=== PATIENT | female | born 1955 | race Caucasian/White ===

== ENCOUNTER 2016-08-29 07:27 | Day surgery (SDC) | payer OTHER ==
[2016-08-28 08:22] VITALS: BMI 33.4
[~2016-08-29 07:27] MED LIST: LACTATED RINGERS 1,000 ML IV SCH; LIDOCAINE 1% 20 ML VIAL (10MG/ML) FOR IV START INTRADERMA PRN
[2016-08-29 07:35] VITALS: RESP 18; TEMP 98.1
[2016-08-29] MEDS ORDERED: LACTATED RINGERS 1,000 ML IV ONE (07:40)
[2016-08-29] MEDS ORDERED: PROPOFOL 10 MG/ML 20 ML VIAL IV ONE (09:10)
--- NOTE | 2016-08-29 09:19 | P.GSHP ---
History of Present Illness H&P Date: 08/29/16 Chief Complaint: Screening colonoscopy This is a 61-year-old female who presents today for screening colonoscopy. Patient had previous colonoscopy prostate 5 years ago. - Constitutional Constitutional: Reports as per HPI Past Medical History Past Medical History: Hyperlipidemia Additional Past Medical History / Comment(s): INJURY TO LT KNEE History of Any Multi-Drug Resistant Organisms: None Reported Past Surgical History: Appendectomy, Orthopedic Surgery Additional Past Surgical History / Comment(s): SURG RT HAND. LT KNEE SCOPE; LT ROTATOR CUFF. COLONOSCOPY. Past Anesthesia/Blood Transfusion Reactions: Postoperative Nausea & Vomiting ( PONV) Past Psychological History: Anxiety, Panic Disorder Additional Psychological History / Comment(s): ONLY IN PAST, PANIC ATTACK X1. Smoking Status: Former smoker Past Alcohol Use History: Daily Additional Past Alcohol Use History / Comment(s): SMOKED [id number], 1 PPD. BEER DAILY X1 STATED Past Drug Use History: None Reported - Past Family History Sister(s) Family Medical History: Cancer, Deep Vein Thrombosis (DVT), Myocardial Infarction ([place]) Brother(s) Family Medical History: Cancer Medications and Allergies Home Medications Medication Instructions Recorded Confirmed Type Ibuprofen [Advil] 200 mg PO Q8HR PRN 09/16/13 08/28/16 History Multivitamins, Thera [Multivitamin] 1 each PO DAILY 09/16/13 08/28/16 History Atorvastatin [Lipitor] 10 mg PO HS 08/28/16 08/28/16 History Allergies Allergy/AdvReac Type Severity Reaction Status Date / Time No Known Allergies Allergy Verified 08/28/16 08:07 Surgical - Exam Vital Signs Temp Pulse Resp BP Pulse Ox 98.1 F 60 18 156/86 96 08/29/16 07:34 08/29/16 07:34 08/29/16 07:34 08/29/16 07:34 08/29/16 07:34 - General well developed, no distress - Eyes PERRL - ENT normal pinna - Neck no masses - Respiratory normal expansion - Cardiovascular Rhythm: regular - Abdomen Abdomen: soft, non tender Assessment and Plan Plan: We'll perform screening colonoscopy.
--- NOTE | 2016-08-29 09:34 | P.OP ---
Date of Procedure: 08/29/16 Preoperative Diagnosis: Screening colonoscopy Postoperative Diagnosis: Diverticulosis Procedure(s) Performed: Colonoscopy Implants: Anesthesia: MAC Surgeon: Geovanny Zapata Pathology: none sent Condition: stable Disposition: PACU Indications for Procedure: Operative Findings: Description of Procedure: The patient's placed on the endoscopy table in the lateral position. She received IV sedation. The digital rectal exam performed which revealed no abnormalities. Flexible colonoscope was then placed patient anus passed throughout the entire colon. The ileocecal valve was visualized. Cecum, ascending and transverse colon appeared normal. In the descending; was mild diverticular changes. The scope was brought back into k the rectum and this appeared normal. Scope was withdrawn from patient.
[2016-08-29 09:54] VITALS: BP 148/80; PULSE 61
== END 2016-08-29 10:15 | disposition home or self-care (01) ==
LOC: ORWHC2ENDO 07:27
PROVIDERS: ATTEND Surgery
DX: Z12.11 Encounter for screening for malignant neoplasm of colon (principal); K57.90 Diverticulosis of intestine, part unspecified, without perforation or abscess without bleeding; E78.5 Hyperlipidemia, unspecified; Z87.891 Personal history of nicotine dependence; Z79.899 Other long term (current) drug therapy
CPT/HCPCS: J2704; G0121

== ENCOUNTER → 2016-11-28 | Outpatient (CLI) | payer OTHER ==
--- NOTE | 2016-11-28 12:11 | XR ---
EXAMINATION TYPE: XR wrist complete RT DATE OF EXAM: 11/28/2016 COMPARISON: NONE HISTORY: Pain TECHNIQUE: Four views submitted. FINDINGS: There is an intra-articular fracture of the distal radius. Mild displacement. Arthropathy of the firs t carpal metacarpal joint noted. Chronic deformity of the ulnar styloid. IMPRESSION: 1. Mildly displaced intra-articular fracture distal radius.
== END | disposition home or self-care (01) ==
LOC: RADXRMAIN 11:49
PROVIDERS: ATTEND Family Medicine
DX: S52.571A Other intraarticular fracture of lower end of right radius, initial encounter for closed fracture (principal)

== ENCOUNTER → 2016-12-16 | Outpatient (CLI) | payer OTHER ==
--- NOTE | 2016-12-16 15:23 | XR ---
Right wrist HISTORY: Trauma and pain 4 views of the right wrist submitted and correlated to prior exam 11/28/2016 The fracture at the radial styloid is again noted, some sclerosis is present along the fracture, rogelio osteal reaction is suspected. Old nonfused ulnar styloid fracture is present. Some widening of the sc apholunate distance suspected. IMPRESSION: Healing radial styloid fracture. Old trauma, widening of the scapholunate distance could be indicative of scapholunate ligament tear.
== END ==
LOC: RADXRMAIN 11:36
PROVIDERS: ATTEND Family Medicine
DX: S52.511D Displaced fracture of right radial styloid process, subsequent encounter for closed fracture with routine healing (principal)

== ENCOUNTER → 2017-01-15 | Outpatient (CLI) | payer OTHER ==
--- NOTE | 2017-01-15 15:22 | XR ---
Right wrist HISTORY: Healing wrist fracture 4 views of the right wrist correlated to previous exam 12/16/2016 Radial styloid fracture is noted as on previous exam, suspect some sclerosis is present compatible wi th fracture healing, no significant periosteal reaction. Lucency extending into the radiocarpal joint is somewhat less conspicuous. Old ulnar styloid fracture is well-corticated and felt to be chronic. IMPRESSION: Findings compatible with healing fracture radial styloid
== END | disposition home or self-care (01) ==
LOC: RADXRMAIN 11:33
PROVIDERS: ATTEND Family Medicine
DX: S52.511D Displaced fracture of right radial styloid process, subsequent encounter for closed fracture with routine healing (principal)

== ENCOUNTER → 2017-03-26 | Outpatient (CLI) | payer OTHER ==
--- NOTE | 2017-03-28 10:45 | MM ---
Reason for exam: screening (asymptomatic). Last mammogram was performed 1 year and 2 months ago. History: Patient is postmenopausal. Family history of premenopausal breast cancer in sister and breast cancer in maternal grandmother. Physical Findings: A clinical breast exam by your physician is recommended on an annual basis and results should be correlated with mammographic findings. MG Screening Mammo w CAD Bilateral CC and MLO view(s) were taken. Prior study comparison: January 19, 2016, bilateral MG screening mammo w CAD. June 21, 2014, bilateral MG screening mammo w CAD. There are scattered fibroglandular densities. No significant changes when compared with prior studies. ASSESSMENT: Benign, BI-RAD 2 RECOMMENDATION: Routine screening mammogram of both breasts in 1 year.
== END | disposition home or self-care (01) ==
LOC: RADMAMWWP 12:18
PROVIDERS: ATTEND Obstetrics & Gynecology
DX: Z12.31 Encounter for screening mammogram for malignant neoplasm of breast (principal)

== ENCOUNTER 2017-05-30 10:03 | Emergency (ER) | payer OTHER ==
--- NOTE | 2017-05-30 10:34 | ED ---
General Adult HPI - General Chief complaint: Fall Stated complaint: RT KNEE AND LEFT WRIST INJURY Time Seen by Provider: 05/30/17 10:26 Source: patient, family, RN notes reviewed Mode of arrival: wheelchair Limitations: no limitations - History of Present Illness Initial comments: Patient is a pleasant 62-year-old female presenting to the emergency department following a fall. Incident occurred just prior to arrival at work. Patient tripped on a pallet and fell forward. No head injury or loss of consciousness. No neck or back pain. Patient did land somewhat on her chest however no chest pain or dyspnea. Patient does complain of moderate left wrist pain as well as moderate right knee pain. Patient does have some swelling of her right knee. Patient is ambulatory with difficulty. - Related Data Home Medications Medication Instructions Recorded Confirmed Atorvastatin [Lipitor] 10 mg PO HS 08/28/16 05/30/17 Calcium Carbonate/Vitamin D3 1 tab PO HS 05/30/17 05/30/17 [Calcium 500-Vit D3 200 Tablet] Fish Oil/Dha/Epa [Fish Oil 1,200 1 cap PO HS 05/30/17 05/30/17 mg Fish Oil] Garlic 1 tab PO HS 05/30/17 05/30/17 Wheat Dextrin [Benefiber] 1 pack PO HS 05/30/17 05/30/17 Previous Rx's Medication Instructions Recorded Ibuprofen [Motrin] 600 mg PO Q6HR PRN #15 tab 05/30/17 Allergies Allergy/AdvReac Type Severity Reaction Status Date / Time No Known Allergies Allergy Verified 05/30/17 11:14 Review of Systems ROS Statement: Those systems with pertinent positive or pertinent negative responses have been documented in the HPI. ROS Other: All systems not noted in ROS Statement are negative. Constitutional: Denies: fever Eyes: Denies: eye pain ENT: Denies: ear pain Respiratory: Denies: cough, dyspnea Cardiovascular: Denies: chest pain Endocrine: Denies: fatigue Gastrointestinal: Denies: abdominal pain Genitourinary: Denies: dysuria Musculoskeletal: Denies: back pain Skin: Denies: rash Neurological: Denies: headache, weakness, confusion Past Medical History Past Medical History: Hyperlipidemia Additional Past Medical History / Comment(s): INJURY TO LT KNEE History of Any Multi-Drug Resistant Organisms: None Reported Past Surgical History: Appendectomy, Orthopedic Surgery Additional Past Surgical History / Comment(s): SURG RT HAND. LT KNEE SCOPE; LT ROTATOR CUFF. COLONOSCOPY. Past Anesthesia/Blood Transfusion Reactions: Postoperative Nausea & Vomiting ( PONV) Past Psychological History: Anxiety, Panic Disorder Smoking Status: Former smoker Past Alcohol Use History: Daily Past Drug Use History: None Reported - Past Family History Sister(s) Family Medical History: Cancer, Deep Vein Thrombosis (DVT), Myocardial Infarction ([place]) Brother(s) Family Medical History: Cancer General Exam Limitations: no limitations General appearance: alert, in no apparent distress Head exam: Present: atraumatic, normocephalic Eye exam: Present: normal appearance Neck exam: Present: normal inspection. Absent: tenderness Respiratory exam: Present: normal lung sounds bilaterally. Absent: chest wall tenderness Cardiovascular Exam: Present: regular rate, normal rhythm Expanded Peripheral pulses: 2+: Dorsalis Pedis (R) GI/Abdominal exam: Present: soft. Absent: distended, tenderness Left Hand Wrist exam: Present: tenderness (Tenderness distal radius just proximal to the wrist), other (Distally the extremity is neurovascular intact.). Absent: normal inspection, swelling, abrasion Right Knee exam: Present: tenderness (Tenderness lower knee/upper tibial region with swelling. Distally the extremity is neurovascular intact. Patient does have a small abrasion however did have pants on.), swelling, abrasion Neurological exam: Present: alert. Absent: motor sensory deficit Psychiatric exam: Present: normal affect, normal mood Skin exam: Present: abrasion (Small abrasion right knee) Course Vital Signs 05/30/17 10:20 Temperature 97.3 F L Pulse Rate 55 L Respiratory 16 Rate Blood Pressure 140/81 O2 Sat by Pulse 98 Oximetry - Reevaluation(s) Reevaluation #1: 05/30/17 10:33 Patient felt to be low risk for tetanus however is offered. Patient refuses. Injury occurred underneath of her pants without break in pants. Procedures - Orthopedic Splinting/Casting Injury #1 Side: left Upper Extremity Injury Location: short arm, wrist Upper Extremity Immobilizer: thumb spica Additional Comments: Examined postplacement with neurovascular intact and good alignment. Medical Decision Making - Medical Decision Making Splint placed. Patient updated on results and need for follow-up. Patient is now receptive to Motrin. - Radiology Data Radiology results: image reviewed (X-ray of the right knee shows no acute process. X-ray left wrist shows a distal radius avulsion fracture.) Disposition Clinical Impression: Distal radius fracture, left Disposition: HOME SELF-CARE Condition: Stable Instructions: Arm Fracture in Adults (ED), Wrist Fracture in Adults (ED) Additional Instructions: Please follow-up with [facility] in the next day or 2 for recheck. He will need to see orthopedics and likely have a cast placed. Ice to affected area. Return for increased pain, swelling, worsening symptoms or other concerns. Prescriptions: Ibuprofen [Motrin] 600 mg PO Q6HR PRN #15 tab PRN Reason: Pain Referrals: Vaibhav Singh DO [Primary Care Provider] - 1-2 days Time of Disposition: 11:37
--- NOTE | 2017-05-30 11:00 | XR ---
EXAMINATION TYPE: XR knee complete RT DATE OF EXAM: 05/30/2017 CLINICAL HISTORY: Right knee pain. TECHNIQUE: Three views of the right knee are obtained. COMPARISON: None. FINDINGS: There is no acute fracture/dislocation evident in right knee. The mild joint space loss p atellofemoral and medial tibiofemoral compartments is present. There is spurring anterior superior p atellar distal quadriceps tendon attachment. A fabella is incidentally noted. The overlying soft tiss ue appears unremarkable. IMPRESSION: There is no acute fracture or dislocation in the right knee.
--- NOTE | 2017-05-30 11:01 | XR ---
EXAMINATION TYPE: XR wrist complete LT DATE OF EXAM: 05/30/2017 CLINICAL HISTORY: Pain. TECHNIQUE: Frontal, lateral and oblique images of the left wrist are obtained. COMPARISON: None FINDINGS: There is age-indeterminate avulsion type fracture from the ulnar aspect of ulnar styloid. The joint spaces in the left wrist appear within normal limits. The overlying soft tissue appears u nremarkable. IMPRESSION: There is age indeterminate avulsion type fracture from ulnar styloid. Correlate clinical ly with history and point tenderness.
[2017-05-30] MEDS ORDERED: IBUPROFEN 600 MG STARTER PACK 4 TAB BTL PO STA (11:34)
[2017-05-30 11:47] VITALS: BP 147/73; PULSE 60; RESP 13; TEMP 98.1
== END 2017-05-30 12:06 | disposition home or self-care (01) ==
LOC: EC 10:03
DX: S52.502A Unspecified fracture of the lower end of left radius, initial encounter for closed fracture (principal); S80.211A Abrasion, right knee, initial encounter; E78.5 Hyperlipidemia, unspecified; Z87.891 Personal history of nicotine dependence; Z53.29 Procedure and treatment not carried out because of patient's decision for other reasons; Z79.899 Other long term (current) drug therapy; W18.09XA Striking against other object with subsequent fall, initial encounter; Y92.69 Other specified industrial and construction area as the place of occurrence of the external cause; Y99.0 Civilian activity done for income or pay
CPT/HCPCS: 29125; 99283

== ENCOUNTER 2019-10-16 12:04 | Emergency (ER) | payer MEDICARE, OTHER ==
[2019-10-16] MEDS ORDERED: ACETAMINOPHEN TAB 500 MG TAB PO STA (12:34)
--- NOTE | 2019-10-16 13:24 | XR ---
EXAMINATION TYPE: XR ankle complete RT , 3 VIEWS DATE OF EXAM ORDERED: 10/16/2019 HISTORY: fall, heel pain. COMPARISON: None. FINDINGS: No fracture, dislocation or ankle joint effusion is seen. There are small, plantar and Ach illes calcaneal spurs. There is some amorphous calcification in the distal Achilles tendon. IMPRESSION: NO ACUTE OSSEOUS LESION.
--- NOTE | 2019-10-16 13:56 | ED ---
Lower Extremity Injury HPI - General Source: patient Mode of arrival: wheelchair Limitations: no limitations <Margy Clarke - Last Filed: 10/16/19 14:05> <Tavo Crawley - Last Filed: 10/16/19 14:22> - General Chief Complaint: Extremity Injury, Lower Stated Complaint: foot & leg injury Time Seen by Provider: 10/16/19 12:12 - History of Present Illness Initial Comments: Patient is a 64-year-old female presenting to the emergency Department with complaints of pain in her right heel. Patient states she saw her laying on the ground and thought he might a fall and hurt himself so she took off running and missed the second step off her deck. Patient states she landed mostly on her right heel. She denies pain anywhere else. She denies any previous surgeries or injuries to the right foot or ankle. She states she is not able to bear weight on this ankle and also has immense pain with dorsiflexio n. She has no further complaints at this time. (Margy Clarke) - Related Data Home Medications Medication Instructions Recorded Confirmed Atorvastatin [Lipitor] 10 mg PO HS 08/28/16 05/30/17 Calcium Carbonate/Vitamin D3 1 tab PO HS 05/30/17 05/30/17 [Calcium 500-Vit D3 200 Tablet] Fish Oil/Dha/Epa [Fish Oil 1,200 1 cap PO HS 05/30/17 05/30/17 mg Fish Oil] Garlic 1 tab PO HS 05/30/17 05/30/17 Wheat Dextrin [Benefiber] 1 pack PO HS 05/30/17 05/30/17 Previous Rx's Medication Instructions Recorded Ibuprofen [Motrin] 600 mg PO Q6HR PRN #15 tab 05/30/17 Allergies Allergy/AdvReac Type Severity Reaction Status Date / Time No Known Allergies Allergy Verified 10/16/19 12:11 Review of Systems ROS Other: All systems not noted in ROS Statement are negative. <Margy Clarke - Last Filed: 10/16/19 14:05> ROS Other: All systems not noted in ROS Statement are negative. <Tavo Crawley - Last Filed: 10/16/19 14:22> ROS Statement: Those systems with pertinent positive or pertinent negative responses have been documented in the HPI. Past Medical History Past Medical History: Hyperlipidemia Additional Past Medical History / Comment(s): INJURY TO LT KNEE History of Any Multi-Drug Resistant Organisms: None Reported Past Surgical History: Appendectomy, Orthopedic Surgery Additional Past Surgical History / Comment(s): SURG RT HAND. LT KNEE SCOPE; LT ROTATOR CUFF. COLONOSCOPY. Past Anesthesia/Blood Transfusion Reactions: Postoperative Nausea & Vomiting (PONV) Past Psychological History: Anxiety, Panic Disorder Smoking Status: Never smoker Past Alcohol Use History: Daily Past Drug Use History: None Reported - Past Family History Sister(s) Family Medical History: Cancer, Deep Vein Thrombosis (DVT), Myocardial Infarction ([place]) Brother(s) Family Medical History: Cancer <Margy Clarke - Last Filed: 10/16/19 14:05> General Exam Limitations: no limitations <Margy Clarke - Last Filed: 10/16/19 14:05> - General Exam Comments Initial Comments: GENERAL: Patient is well-developed and well-nourished. Patient is nontoxic and in no acute distress. HEAD: Atraumatic, normocephalic. EYES: Pupils equal round and reactive to light, extraocular movements intact, sclera anicteric, conjunctiva are normal. Eyelids were unremarkable. ENT: TMs normal, nares patent, oropharynx clear without exudates. Moist mucous membranes. NECK: Normal range of motion, supple without lymphadenopathy or JVD. LUNGS: Unlabored respirations. Breath sounds clear to auscultation bilaterally and equal. No wheezes rales or rhonchi. HEART: Regular rate and rhythm without murmurs, rubs or gallops. ABDOMEN: Soft, nontender, normoactive bowel sounds. No guarding, no rebound. No masses appreciated. : Deferred MUSCULOSKELETAL: Normal extremities wwith adequate strength and normal range of motion, no pitting or edema. No clubbing or cyanosis. NEUROLOGICAL: Patient is alert and oriented x 3. Motor and sensory are also intact. Cranial nerves II through XII grossly intact. Normal speech, normal gait. Symmetrical smile. PSYCH: Normal mood, normal affect. SKIN: Warm, Dry, normal turgor, no rashes or lesions noted. (Margy Clarke) Course <Tavo Crawley - Last Filed: 10/16/19 14:22> Vital Signs 10/16/19 12:09 Temperature 97.9 F Pulse Rate 114 H Respiratory 20 Rate Blood Pressure 188/77 O2 Sat by Pulse 99 Oximetry - Reevaluation(s) Reevaluation #1: 10/16/19 14:21 PA supervision: I proceeded [id number] evaluation the patient. He did injure her right lower extremity injury does appear to be consistent with an Achilles tendon strain. I did review the imaging no evidence of a bony abnormality. I did discuss the findings with the patient and family patient will follow up with Dr. Moore. She does have crutches at home and will be non weight bearing. (Tavo Crawley) Disposition Is patient prescribed a controlled substance at d/c from ED?: No <Margy Clarke - Last Filed: 10/16/19 14:05> <Tavo Crawley - Last Filed: 10/16/19 14:22> Clinical Impression: Strain of right Achilles tendon Disposition: HOME SELF-CARE Condition: Stable Instructions (If sedation given, give patient instructions): Achilles Tendinitis (ED) Additional Instructions: Please return to the Emergency Department if symptoms worsen or any other concerns. Follow-up with orthopedics as discussed. Keep brace in place until follow-up. No weightbearing. May alternate between Tylenol and Motrin for discomfort. Referrals: Vaibhav Singh DO [Primary Care Provider] - 1-2 days Geronimo Moore DO [Doctor of Osteopathic Medicine] - 1-2 days
[2019-10-16] MEDS ORDERED: ACET/COD 300 MG/30 MG STARTER PACK 6 TAB BTL PO STA (14:06)
[2019-10-16 14:21] VITALS: BP 154/67; PULSE 58; RESP 18; TEMP 97.6
== END 2019-10-16 14:23 | disposition home or self-care (01) ==
LOC: EC 12:04
DX: S86.011A Strain of right Achilles tendon, initial encounter (principal); E78.5 Hyperlipidemia, unspecified; Z79.899 Other long term (current) drug therapy; W19.XXXA Unspecified fall, initial encounter; Y93.02 Activity, running
CPT/HCPCS: 99283

== ENCOUNTER → 2019-10-21 | Outpatient (CLI) | payer MEDICARE ==
--- NOTE | 2019-10-21 14:36 | MR ---
EXAMINATION TYPE: MR ankle RT wo con DATE OF EXAM: 10/21/2019 COMPARISON: Right ankle x-ray 5 days ago HISTORY: Rt ankle pain, limited movement S/P injury 1 week ago Standard multiplanar, multisequence MRI departmental protocol Multiplanar, multisequence images of the right ankle were acquired. FINDINGS: Distal Achilles tendon show some irregularity and diminished signal with adjacent edema jose alberto roximately 6 to 7 cm cranial to the calcaneal insertion over a roughly 2 cm segment. No full-thicknes s retracted tear is seen. Plantar fascia intact. There are moderate size superior and inferior calcan eal spurs. Peroneal tendons are intact and felt within normal limits. There is moderate subcutaneous edema over the posterior aspect of the medial malleolus and flexor tendons posterior medially are intact. Extensor tendons anteriorly are intact. Anterior tibiofibular and anterior talofibular ligaments are intact. Medial deltoid ligament is intac t. Normal sinus tarsi fat is seen. Ankle mortise symmetry is maintained. Hindfoot and midfoot articulati ons are preserved. No suspicious osseous edema. IMPRESSION: Partial tearing of the mid substance portion of the Achilles tendon without full-thicknes s retracted tear. No ligamentous tear is seen.
== END | disposition home or self-care (01) ==
LOC: RADMRIMAIN 13:21
PROVIDERS: ATTEND Orthopaedic Surgery
DX: S86.011A Strain of right Achilles tendon, initial encounter (principal)

== ENCOUNTER → 2020-05-19 | Outpatient (CLI) | payer MEDICARE ==
--- NOTE | 2020-05-19 14:30 | BD ---
EXAMINATION TYPE: Axial Bone Density DATE OF EXAM: 05/19/2020 COMPARISON: NONE CLINICAL HISTORY: Height: 61 Weight: 184.7 FRAX RISK QUESTIONS: Alcohol (3 or more units per day): no Family History (Parent hip fracture): no Glucocorticoids (More than 3mos): no (Ex: prednisone, prednisolone, methylprednisolone, dexamethasone, and hydrocortisone). History of Fracture in Adulthood: yes Secondary Osteoporosis: 1. Type 1 Diabetes: no 2. Hyperthyroidism: no 3. Menopause before 45: no 4. Malnutrition: no 5. Chronic liver disease: no Rheumatoid Arthritis: no Current Tobacco Use: no RISK FACTORS HISTORY OF: Hip Fracture (Right/Left): right -25 years ago/ left 3 years ago Family History of Osteoporosis: no Active: no Diet low in dairy products/other sources of calcium: yes Postmenopausal woman: age 49 Lost more than 2 inches in height since high school: no MEDICATIONS: cholesterol meds Additional History: EXAM MEASUREMENTS: Bone mineral densitometry was performed using the [employer] System. Bone mineral density as measured about the Lumbar spine is: ----- L1-L4(G/cm2): 1.238 T Score Values are as follows: ----- L2: 0.7 ----- L3: 0.6 ----- L4: 0.6 ----- L1-L4: 0.5 Bone mineral density has: decreased -0.4 % since study of: 06.30.2012 Bone mineral density about the R hip (g/cm2): 0.973 Bone mineral density about the L hip (g/cm2): 0.955 T Score values are as follows: -----R Neck: -0.5 -----L Neck: -0.6 -----R Total: 0.5 -----L Total: 0.0 Bone mineral density has: increased 0.2 % since study of: 06.30.2012 IMPRESSION: Normal (Values between +1 and -1 indicate normal bone mass). Consider repeating this study in 5 year s or sooner if there is some new clinical indication. NOTE: T-SCORE=SD OF THE YOUNG ADULT MEAN.
--- NOTE | 2020-05-23 09:18 | MM ---
Reason for exam: screening (asymptomatic). Last mammogram was performed 1 year and 11 months ago. History: Patient is postmenopausal. Family history of premenopausal breast cancer in sister and breast cancer in maternal grandmother. Physical Findings: A clinical breast exam by your physician is recommended on an annual basis and results should be correlated with mammographic findings. MG Screening Mammo w CAD Bilateral CC and MLO view(s) were taken. Prior study comparison: June 22, 2018, bilateral MG 3d screening mammo w/cad. March 26, 2017, bilateral MG screening mammo w CAD. The breast tissue is heterogeneously dense. This may lower the sensitivity of mammography. No significant changes when compared with prior studies. ASSESSMENT: Benign, BI-RAD 2 RECOMMENDATION: Routine screening mammogram of both breasts in 1 year.
== END | disposition home or self-care (01) ==
LOC: RADMAMWWP 13:10
PROVIDERS: ATTEND Obstetrics & Gynecology
DX: Z12.31 Encounter for screening mammogram for malignant neoplasm of breast (principal); N95.1 Menopausal and female climacteric states
CPT/HCPCS: 77067; 77080

== ENCOUNTER 2021-05-27 11:27 | Emergency (ER) | payer MEDICARE ==
[2021-05-27 11:48] VITALS: RESP 16; TEMP 98.4
[2021-05-27 12:32] LABS: Basophils % (A) 1 %; Eosinophils # (A) 0.1 k/uL (0-0.7); Eosinophils % (A) 1 %; HCT 43.2 % (34.0-46.0); HGB 14.3 gm/dL (11.4-16.0); Lymphocytes # (A) 1.6 k/uL (1.0-4.8); Lymphocytes % (A) 26 %; MCH 31.7 pg (25.0-35.0); MCHC 33.1 g/dL (31.0-37.0); MCV 95.8 fL (80.0-100.0); Mean Platelet Volume 6.9; Monocytes # (A) 0.4 k/uL (0-1.0); Monocytes % (A) 6 %; Neutrophils # (A) 4.1 k/uL (1.3-7.7); Neutrophils % (A) 64 %; Platelet Count 266 k/uL (150-450); RBC 4.51 m/uL (3.80-5.40); RDW 13.3 % (11.5-15.5); WBC 6.3 k/uL (3.8-10.6)
[2021-05-27 12:47] LABS: Albumin 4.3 g/dL (3.5-5.0); Calcium 9.4 mg/dL (8.4-10.2); Total Bilirubin 0.9 mg/dL (0.2-1.3); Total Protein 7.6 g/dL (6.3-8.2)
[2021-05-27 12:51] LABS: Appearance,Urine Clear (Clear); Bilirubin,Urine Negative (Negative); Blood,Urine Trace (Negative); Color,Urine Yellow; Glucose,Urine (UA) Negative (Negative); Ketones,Urine Negative (Negative); Leukocyte Esterase,Urine Trace (Negative); Nitrite,Urine Negative (Negative); PH, Urine 6.5 (5.0-8.0); Protein,Urine Negative (Negative); RBC,Urine 2 /hpf (0-5); Specific Gravity,Urine 1.013 (1.001-1.035); Squamous Epithelial Cell,Urine <1 /hpf (0-4); Urobilinogen,Urine <2.0 mg/dL (<2.0); WBC,Urine 2 /hpf (0-5)
--- NOTE | 2021-05-27 12:52 | ED ---
Abdominal Pain HPI - General Chief Complaint: Abdominal Pain Stated Complaint: Abdominal Pain Time Seen by Provider: 05/27/21 12:02 Source: patient Mode of arrival: ambulatory Limitations: no limitations - History of Present Illness Initial Comments: Patient is a 66-year-old female who presents to the emergency department with a chief complaint of right flank pain. The flank pain started 5 days ago suddenly and is intermittent with radiation to the right pelvic region. There is no radiation to the back. Patient reports this is never happened before. She denies history of kidney infection or kidney stones. Patient denies fever, chills, abdominal pain, nausea, vomiting burning with urination, blood in the urine, and increased urinary frequency/urgency. She has no other complaints at this time including chest pain and shortness of breath. - Related Data Home Medications Medication Instructions Recorded Confirmed Atorvastatin [Lipitor] 10 mg PO HS 08/28/16 05/30/17 Calcium Carbonate/Vitamin D3 1 tab PO HS 05/30/17 05/30/17 [Calcium 500-Vit D3 200 Tablet] Fish Oil/Dha/Epa [Fish Oil 1,200 1 cap PO HS 05/30/17 05/30/17 mg Fish Oil] Garlic 1 tab PO HS 05/30/17 05/30/17 Wheat Dextrin [Benefiber] 1 pack PO HS 05/30/17 05/30/17 Previous Rx's Medication Instructions Recorded Ibuprofen [Motrin] 600 mg PO Q6HR PRN #15 tab 05/30/17 Allergies Allergy/AdvReac Type Severity Reaction Status Date / Time No Known Allergies Allergy Verified 05/27/21 11:48 Review of Systems ROS Statement: Those systems with pertinent positive or pertinent negative responses have been documented in the HPI. ROS Other: All systems not noted in ROS Statement are negative. Past Medical History Past Medical History: Hyperlipidemia, Hypertension Additional Past Medical History / Comment(s): INJURY TO LT KNEE History of Any Multi-Drug Resistant Organisms: None Reported Past Surgical History: Appendectomy, Orthopedic Surgery Additional Past Surgical History / Comment(s): SURG RT HAND. LT KNEE SCOPE; LT ROTATOR CUFF. COLONOSCOPY. Past Anesthesia/Blood Transfusion Reactions: Postoperative Nausea & Vomiting (PONV) Past Psychological History: Anxiety, Panic Disorder Smoking Status: Former smoker Past Alcohol Use History: Daily Past Drug Use History: None Reported - Past Family History Sister(s) Family Medical History: Cancer, Deep Vein Thrombosis (DVT), Myocardial Infarction ([place]) Brother(s) Family Medical History: Cancer General Exam Limitations: no limitations General appearance: alert, in no apparent distress Head exam: Present: atraumatic, normocephalic, normal inspection Respiratory exam: Present: normal lung sounds bilaterally. Absent: respiratory distress, wheezes, rales, rhonchi, stridor Cardiovascular Exam: Present: regular rate, normal rhythm, normal heart sounds. Absent: systolic murmur, diastolic murmur, rubs, gallop, clicks GI/Abdominal exam: Present: soft. Absent: distended, guarding, rebound, rigid Back exam: Present: normal inspection, full ROM, CVA tenderness (R). Absent: tenderness, CVA tenderness (L), paraspinal tenderness, vertebral tenderness Neurological exam: Present: alert, oriented X3, CN II-XII intact Psychiatric exam: Present: normal affect, normal mood Skin exam: Present: warm, dry, intact, normal color. Absent: rash Course Vital Signs 05/27/21 11:43 Temperature 98.4 F Pulse Rate 79 Respiratory 16 Rate Blood Pressure 145/92 O2 Sat by Pulse 98 Oximetry Medical Decision Making - Medical Decision Making This a 66-year-old female who presents with right flank pain and pelvic pain. Thorough history and examination were performed. Patient is afebrile. Laboratory studies reveal chronic renal insufficiency. No leukocytosis. Urinalysis reveals trace blood and trace leukocyte esterase. CT of the abdomen and pelvis without contrast reveals prominence of the right renal collecting system, right ureter which could be due to recently passed calculus. Patient given morphine for pain. On reevaluation patient is resting in bed with moderate improvement in pain. Patient will be discharged with instruction to take Tylenol for pain. Return parameters discussed. Patient verbalized understanding and are agreeable to plan. Dr. Hunter is my attending. - Lab Data Result diagrams: 05/27/21 12:20 05/27/21 12:20 Lab Results 05/27/21 05/27/21 05/27/21 Range/Units 12:20 12:20 12:20 WBC 6.3 (3.8-10.6) k/uL RBC 4.51 (3.80-5.40) m/uL Hgb 14.3 (11.4-16.0) gm/dL Hct 43.2 (34.0-46.0) % MCV 95.8 (80.0-100.0) fL MCH 31.7 (25.0-35.0) pg MCHC 33.1 (31.0-37.0) g/dL RDW 13.3 (11.5-15.5) % Plt Count 266 (150-450) k/uL MPV 6.9 Neutrophils % 64 % Lymphocytes % 26 % Monocytes % 6 % Eosinophils % 1 % Basophils % 1 % Neutrophils # 4.1 (1.3-7.7) k/uL Lymphocytes # 1.6 (1.0-4.8) k/uL Monocytes # 0.4 (0-1.0) k/uL Eosinophils # 0.1 (0-0.7) k/uL Basophils # 0.0 (0-0.2) k/uL Sodium 141 (137-145) mmol/L Potassium 4.0 (3.5-5.1) mmol/L Chloride 106 (98-107) mmol/L Carbon Dioxide 27 (22-30) mmol/L Anion Gap 8 mmol/L BUN 35 H (7-17) mg/dL Creatinine 1.31 H (0.52-1.04) mg/dL Est GFR (CKD-EPI)AfAm 49 (>60 ml/min/1.73 sqM) Est GFR (CKD-EPI)NonAf 42 (>60 ml/min/1.73 sqM) Glucose 95 (74-99) mg/dL Calcium 9.4 (8.4-10.2) mg/dL Total Bilirubin 0.9 (0.2-1.3) mg/dL AST 43 H (14-36) U/L ALT 56 H (4-34) U/L Alkaline Phosphatase 114 (38-126) U/L Total Protein 7.6 (6.3-8.2) g/dL Albumin 4.3 (3.5-5.0) g/dL Urine Color Yellow Urine Appearance Clear (Clear) Urine pH 6.5 (5.0-8.0) Ur Specific [place] 1.013 (1.001-1.035) Urine Protein Negative (Negative) Urine Glucose (UA) Negative (Negative) Urine Ketones Negative (Negative) Urine Blood Trace H (Negative) Urine Nitrite Negative (Negative) Urine Bilirubin Negative (Negative) Urine Urobilinogen <2.0 (<2.0) mg/dL Ur Leukocyte Esterase Trace H (Negative) Urine RBC 2 (0-5) /hpf Urine WBC 2 (0-5) /hpf Ur Squamous Epith Cells <1 (0-4) /hpf - Radiology Data Radiology results: report reviewed Disposition Clinical Impression: Flank pain, acute Disposition: HOME SELF-CARE Condition: Good Additional Instructions: Take Tylenol as needed for pain. Follow-up with primary care provider in one to 2 days. Return to the emergency department if you experience new, concerning, or worsening symptoms. Is patient prescribed a controlled substance at d/c from ED?: No Referrals: Vaibhav Singh DO [Primary Care Provider] - 1-2 days Time of Disposition: 14:57
--- NOTE | 2021-05-27 14:05 | CT ---
EXAMINATION TYPE: CT abdomen pelvis wo con DATE OF EXAM: 05/27/2021 COMPARISON: None HISTORY: Right flank pain. CT DLP: 865.6 mGycm Automated exposure control for dose reduction was used. TECHNIQUE: Helical acquisition of images from the lung bases through the pelvis. FINDINGS: Lack of intravenous contrast could compromise sensitivity. There is a hiatal hernia. LUNG BASES: No significant abnormality is appreciated. AORTA: No significant abnormality is appreciataed. LIVER/GB: No significant abnormality is appreciated. PANCREAS: No significant abnormality is seen. SPLEEN: No significant abnormality is seen. ADRENALS: No significant abnormality is seen. KIDNEYS: There is a punctate calcification at the lower pole the right kidney, right renal pelvis is somewhat full in appearance. Mild prominence of the right ureter. REPRODUCTIVE ORGANS: No significant abnormality is seen. URINARY BLADDER: No significant abnormality is seen. BOWEL: No significant abnormality is seen. No evident appendicitis. FREE AIR: No Free Air is visible. ASCITES: None visible. PELVIC ADENOPATHY: None visualized. RETROPERITONEAL ADENOPATHY: No Retroperitoneal Adenopathy visible. OSSEOUS STRUCTURES: Degenerative disc changes, spinal curvature noted in the visualized spine. Facet arthropathy present at the lower lumbar spine. IMPRESSION: PROMINENCE OF THE RIGHT RENAL COLLECTING SYSTEM, RIGHT URETER COULD BE DUE TO RECENTLY PASSED CALCULU S, 8 NONOBSTRUCTIVE CALCULUS IS NOT IDENTIFIED WITH CERTAINTY THERE IS NONOBSTRUCTIVE RIGHT NEPHROLIT HIASIS.
[2021-05-27] MEDS ORDERED: MORPHINE SULFATE 4 MG/ML SYRINGE IVP STA (14:26)
[2021-05-27] MEDS ORDERED: KETOROLAC 15 MG/ML 1 ML VIAL IVP STA (14:36)
[2021-05-27 15:11] VITALS: BP 138/77; PULSE 65
== END 2021-05-27 15:11 | disposition home or self-care (01) ==
LOC: EC 11:27
DX: R10.9 Unspecified abdominal pain (principal); E78.5 Hyperlipidemia, unspecified; I10 Essential (primary) hypertension; F41.9 Anxiety disorder, unspecified; Z90.49 Acquired absence of other specified parts of digestive tract; Z87.891 Personal history of nicotine dependence
CPT/HCPCS: 99284; 96374; 36415; 80053; 85025; 81001; 74176; J1885

== ENCOUNTER → 2021-06-08 | Outpatient (CLI) | payer MEDICARE ==
--- NOTE | 2021-06-11 09:21 | MM ---
Reason for exam: screening (asymptomatic). Last mammogram was performed 1 year and 1 month ago. History: Patient is postmenopausal. Family history of premenopausal breast cancer in sister and breast cancer in maternal grandmother. Physical Findings: A clinical breast exam by your physician is recommended on an annual basis and results should be correlated with mammographic findings. MG Screening Mammo w CAD Bilateral CC and MLO view(s) were taken. Prior study comparison: May 19, 2020, bilateral MG screening mammo w CAD. June 22, 2018, bilateral MG 3d screening mammo w/cad. The breast tissue is heterogeneously dense. This may lower the sensitivity of mammography. Partially obscured nodular density central right breast zone B/C. This finding is changed when compared with previous exams. ASSESSMENT: Incomplete: need additional imaging evaluation, BI-RAD 0 RECOMMENDATION: Special view mammogram of the right breast. If lesion persists on supplemental views, image directed ultrasound is recommended. [facility] will attempt to contact patient to return for supplemental views and ultrasound if indicated.
== END | disposition home or self-care (01) ==
LOC: RADMAMWWP 07:32
PROVIDERS: ATTEND Obstetrics & Gynecology
DX: Z12.31 Encounter for screening mammogram for malignant neoplasm of breast (principal); Z78.0 Asymptomatic menopausal state; Z80.3 Family history of malignant neoplasm of breast
CPT/HCPCS: 77067

== ENCOUNTER → 2021-06-14 | Outpatient (CLI) | payer MEDICARE ==
--- NOTE | 2021-06-14 11:14 | MM ---
Reason for exam: additional evaluation requested from abnormal screening. Last mammogram was performed less than 1 month ago. History: Patient is postmenopausal. Family history of premenopausal breast cancer in sister and breast cancer in maternal grandmother. Physical Findings: A clinical breast exam by your physician is recommended on an annual basis and results should be correlated with mammographic findings. MG Work Up Mamm w CAD RT Spot compression CC, spot compression MLO, and LM view(s) were taken of the right breast. Prior study comparison: June 08, 2021, bilateral MG screening mammo w CAD. May 19, 2020, bilateral MG screening mammo w CAD. The breast tissue is heterogeneously dense. This may lower the sensitivity of mammography. There is no discrete abnormality including area of concern. No significant new findings when compared with previous films. These results were verbally communicated with the patient and result sheet given to the patient on 06/14/21. ASSESSMENT: Negative, BI-RAD 1 RECOMMENDATION: Return to routine screening mammogram schedule for both breasts.
== END | disposition home or self-care (01) ==
LOC: RADMAMWWP 10:18
PROVIDERS: ATTEND Obstetrics & Gynecology
DX: R92.8 Other abnormal and inconclusive findings on diagnostic imaging of breast (principal); Z78.0 Asymptomatic menopausal state; Z80.3 Family history of malignant neoplasm of breast
CPT/HCPCS: 77065

== ENCOUNTER 2021-07-26 08:11 | Day surgery (SDC) | payer MEDICARE ==
[2021-07-24 16:33] VITALS: BMI 34.0
[~2021-07-26 08:11] MED LIST changes: +LIDOCAINE 1% (10MG/ML) FOR IV START INTRADERMA PRN; -LIDOCAINE 1% 20 ML VIAL (10MG/ML) FOR IV START INTRADERMA PRN
[2021-07-26 08:56] VITALS: TEMP 98.2
[2021-07-26] MEDS ORDERED: PROPOFOL 10 MG/ML 20 ML VIAL IV ONE (09:41)
[2021-07-26] MEDS ORDERED: LIDOCAINE 2% INJ 20 MG/ML (2 ML VIAL) ONE (09:41)
--- NOTE | 2021-07-26 09:43 | P.GSHP ---
History of Present Illness H&P Date: 07/26/21 Chief Complaint: GI bleed This is a 66-year-old female who presents today for GI bleed. Patient presents for colonoscopy Past Medical History Past Medical History: Hyperlipidemia, Hypertension Additional Past Medical History / Comment(s): INJURY TO LT KNEE History of Any Multi-Drug Resistant Organisms: None Reported Past Surgical History: Appendectomy, Orthopedic Surgery Additional Past Surgical History / Comment(s): SURG RT HAND. LT KNEE- ARTHROSCOPIC ; LT ROTATOR CUFF REPAIR , COLONOSCOPY. Past Anesthesia/Blood Transfusion Reactions: Previous Problems w/ Anesthesia, Postoperative Nausea & Vomiting (PONV) Smoking Status: Former smoker - Past Family History Sister(s) Family Medical History: Cancer, Deep Vein Thrombosis (DVT), Myocardial Infarction ([place]) Brother(s) Family Medical History: Cancer Medications and Allergies Home Medications Medication Instructions Recorded Confirmed Type Atorvastatin [Lipitor] 5 mg PO HS 08/28/16 07/26/21 History Calcium Carbonate/Vitamin D3 1 tab PO DAILY 05/30/17 07/26/21 History [Calcium 500-Vit D3 200 Tablet] Garlic 1 tab PO HS 05/30/17 07/26/21 History Ibuprofen [Motrin] 600 mg PO Q6HR PRN #15 tab 05/30/17 07/26/21 Rx Wheat Dextrin [Benefiber] 1 pack PO DAILY PRN 05/30/17 07/26/21 History Vit C/E/Zn/Coppr/Lutein/Zeaxan 1 tab PO DAILY 07/24/21 07/26/21 History [Preservision Areds 2 Chew Tab] amLODIPine [Norvasc] 2.5 mg PO DAILY 07/24/21 07/26/21 History Allergies Allergy/AdvReac Type Severity Reaction Status Date / Time No Known Allergies Allergy Verified 07/26/21 08:52 Surgical - Exam Vital Signs Temp Pulse Resp BP Pulse Ox 98.2 F 57 L 18 152/71 99 07/26/21 08:55 07/26/21 08:55 07/26/21 08:55 07/26/21 08:55 07/26/21 08:55 - General well developed, well nourished, no distress - Eyes PERRL - ENT normal pinna - Neck no masses - Respiratory normal expansion - Cardiovascular Rhythm: regular - Abdomen Abdomen: soft, non tender Assessment and Plan Assessment: GI bleed. We'll perform colonoscopy.
--- NOTE | 2021-07-26 10:02 | P.OP ---
Date of Procedure: 07/26/21 Preoperative Diagnosis: GI bleed Postoperative Diagnosis: Internal and external hemorrhoids Rectal polyp Procedure(s) Performed: Colonoscopy Anesthesia: MAC Surgeon: Geovanny Zapata Pathology: other (Rectal polyp) Condition: stable Disposition: PACU Description of Procedure: The patient's placed on the endoscopy table in the lateral position. She received IV sedation. Digital rectal exam performed. This revealed internal/external hemorrhoids. The flexible colonoscope was then placed patient anus passed throughout the entire colon. The scope was advanced of the colon. Ileocecal valve was visualized with tortuosity valve. Several times made to maneuver the colonoscope into the ileocecal valve was possible. Scope was brought back. Ascending colon, transverse colon descending colon and sigmoid colon appeared normal. In the rectum there was a small polyp seen was removed with a cold forcep. Scope was withdrawn for patient. Internal and external hemorrhoids are noted. Presumed patient may have had some bleeding from internal and external hemorrhoids.
[2021-07-26 10:09] VITALS: RESP 16
[2021-07-26 10:24] VITALS: BP 155/78; PULSE 68
== END 2021-07-26 10:47 | disposition home or self-care (01) ==
LOC: ORWHC2ENDO 08:11
PROVIDERS: ATTEND Surgery
DX: K62.1 Rectal polyp (principal); K64.8 Other hemorrhoids; K64.4 Residual hemorrhoidal skin tags; E78.5 Hyperlipidemia, unspecified; I10 Essential (primary) hypertension; Z90.49 Acquired absence of other specified parts of digestive tract; Z98.890 Other specified postprocedural states; Z87.891 Personal history of nicotine dependence; Z79.899 Other long term (current) drug therapy; Z80.9 Family history of malignant neoplasm, unspecified; Z82.49 Family history of ischemic heart disease and other diseases of the circulatory system
CPT/HCPCS: 88305; 45380; J2704; J2001

== ENCOUNTER 2021-10-11 09:04 | Emergency (ER) | payer MEDICARE ==
[2021-10-11 09:51] VITALS: TEMP 97.9
[2021-10-11] MEDS ORDERED: HYDROmorphone 0.5 MG/0.5 ML SYRINGE IVP STA (10:11)
[2021-10-11] MEDS ORDERED: SODIUM CHLORIDE 0.9% 1,000 ML IV STA (10:11)
[2021-10-11] MEDS ORDERED: ONDANSETRON 4 MG/2 ML VIAL IVP STA (10:11)
[2021-10-11] MEDS ORDERED: SODIUM CHLORIDE 0.9% 500 ML 500 ML IV STA (10:11)
--- NOTE | 2021-10-11 10:22 | ED ---
Abdominal Pain HPI - General Chief Complaint: Abdominal Pain Stated Complaint: Back pain Time Seen by Provider: 10/11/21 09:52 Source: patient, RN notes reviewed Mode of arrival: ambulatory Limitations: no limitations - History of Present Illness Initial Comments: This a 66-year-old female presents emergency department chief complaint of left flank pain. Patient states she's been having increasing pain over the last 1 week. Patient states that does not affect normal backache. She has no pain with movement. States it's more towards her left kidney area. She has no dysuria she states her urine is darker than normal this morning. She states she drinks a large amount of water and she did not start. No fevers or chills no history kidney stones no chest pain or shortness of breath. Patient states she's had no constipation or bowel changes. - Related Data Home Medications Medication Instructions Recorded Confirmed Atorvastatin [Lipitor] 5 mg PO HS 08/28/16 07/26/21 Calcium Carbonate/Vitamin D3 1 tab PO DAILY 05/30/17 07/26/21 [Calcium 500-Vit D3 200 Tablet] Garlic 1 tab PO HS 05/30/17 07/26/21 Wheat Dextrin [Benefiber] 1 pack PO DAILY PRN 05/30/17 07/26/21 Vit C/E/Zn/Coppr/Lutein/Zeaxan 1 tab PO DAILY 07/24/21 07/26/21 [Preservision Areds 2 Chew Tab] amLODIPine [Norvasc] 2.5 mg PO DAILY 07/24/21 07/26/21 Previous Rx's Medication Instructions Recorded Ibuprofen [Motrin] 600 mg PO Q6HR PRN #15 tab 05/30/17 Cephalexin [Keflex] 500 mg PO Q8HR #21 cap 10/11/21 Allergies Allergy/AdvReac Type Severity Reaction Status Date / Time hydromorphone AdvReac Chest Pain Verified 10/11/21 10:32 Review of Systems ROS Statement: Those systems with pertinent positive or pertinent negative responses have been documented in the HPI. ROS Other: All systems not noted in ROS Statement are negative. Past Medical History Past Medical History: Hyperlipidemia, Hypertension Additional Past Medical History / Comment(s): INJURY TO LT KNEE History of Any Multi-Drug Resistant Organisms: None Reported Past Surgical History: Appendectomy, Orthopedic Surgery Additional Past Surgical History / Comment(s): SURG RT HAND. LT KNEE- ARTHROSCOPIC ; LT ROTATOR CUFF REPAIR , COLONOSCOPY. Past Anesthesia/Blood Transfusion Reactions: Previous Problems w/ Anesthesia, Postoperative Nausea & Vomiting (PONV) Past Psychological History: Panic Disorder Smoking Status: Former smoker Past Alcohol Use History: Daily Past Drug Use History: None Reported - Past Family History Sister(s) Family Medical History: Cancer, Deep Vein Thrombosis (DVT), Myocardial Infarction ([place]) Brother(s) Family Medical History: Cancer General Exam Limitations: no limitations General appearance: alert, in no apparent distress Head exam: Present: atraumatic, normocephalic, normal inspection Eye exam: Present: normal appearance, PERRL, EOMI. Absent: scleral icterus, conjunctival injection, periorbital swelling ENT exam: Present: normal exam, mucous membranes moist Neck exam: Present: normal inspection, full ROM. Absent: tenderness, meningismus, lymphadenopathy Respiratory exam: Present: normal lung sounds bilaterally. Absent: respiratory distress, wheezes, rales, rhonchi, stridor Cardiovascular Exam: Present: regular rate, normal rhythm, normal heart sounds. Absent: systolic murmur, diastolic murmur, rubs, gallop, clicks GI/Abdominal exam: Present: soft, tenderness (Left sided left flank), normal bowel sounds. Absent: distended, guarding, rebound, rigid Back exam: Present: full ROM, CVA tenderness (L). Absent: CVA tenderness (R), paraspinal tenderness, vertebral tenderness Neurological exam: Present: alert Course Vital Signs 10/11/21 10/11/21 10/11/21 09:49 10:29 11:00 Temperature 97.9 F Pulse Rate 66 55 L Respiratory 18 28 H 18 Rate Blood Pressure 149/76 144/76 O2 Sat by Pulse 98 96 Oximetry Medical Decision Making - Medical Decision Making CT shows evidence of kidney stone on the right, no specific lesions on the left. Patient lab work does show mild elevated creatinine which is the patient's baseline. Patient does have some 6 white cells in her urinalysis and her symptoms are more concerning with possible UTI early pyelonephritis. Patient was given Rocephin will be discharged on oral antibiotics return parameters were discussed. - Lab Data Result diagrams: 10/11/21 10:21 10/11/21 10:21 Lab Results 10/11/21 10/11/21 10/11/21 Range/Units 10:21 10:21 10:21 WBC 6.1 (3.8-10.6) k/uL RBC 4.59 (3.80-5.40) m/uL Hgb 14.6 (11.4-16.0) gm/dL Hct 42.7 (34.0-46.0) % MCV 92.9 (80.0-100.0) fL MCH 31.7 (25.0-35.0) pg MCHC 34.1 (31.0-37.0) g/dL RDW 13.3 (11.5-15.5) % Plt Count 275 (150-450) k/uL MPV 7.2 Neutrophils % 66 % Lymphocytes % 25 % Monocytes % 5 % Eosinophils % 2 % Basophils % 1 % Neutrophils # 4.0 (1.3-7.7) k/uL Lymphocytes # 1.5 (1.0-4.8) k/uL Monocytes # 0.3 (0-1.0) k/uL Eosinophils # 0.1 (0-0.7) k/uL Basophils # 0.0 (0-0.2) k/uL Sodium 139 (137-145) mmol/L Potassium 4.1 (3.5-5.1) mmol/L Chloride 107 (98-107) mmol/L Carbon Dioxide 25 (22-30) mmol/L Anion Gap 7 mmol/L BUN 37 H (7-17) mg/dL Creatinine 1.16 H (0.52-1.04) mg/dL Est GFR (CKD-EPI)AfAm 57 (>60 ml/min/1.73 sqM) Est GFR (CKD-EPI)NonAf 49 (>60 ml/min/1.73 sqM) Glucose 117 H (74-99) mg/dL Plasma Lactic Acid [place] (0.7-2.0) mmol/L Calcium 9.5 (8.4-10.2) mg/dL Total Bilirubin 1.0 (0.2-1.3) mg/dL AST 39 H (14-36) U/L ALT 44 H (4-34) U/L Alkaline Phosphatase 155 H (38-126) U/L Total Protein 7.4 (6.3-8.2) g/dL Albumin 4.3 (3.5-5.0) g/dL Amylase 81 (30-110) U/L Lipase 122 (23-300) U/L Urine Color Yellow Urine Appearance Clear (Clear) Urine pH 6.5 (5.0-8.0) Ur Specific [place] 1.023 (1.001-1.035) Urine Protein Trace H (Negative) Urine Glucose (UA) Negative (Negative) Urine Ketones Negative (Negative) Urine Blood Negative (Negative) Urine Nitrite Negative (Negative) Urine Bilirubin Negative (Negative) Urine Urobilinogen <2.0 (<2.0) mg/dL Ur Leukocyte Esterase Moderate H (Negative) Urine RBC 5 (0-5) /hpf Urine WBC 6 H (0-5) /hpf Ur Squamous Epith Cells 1 (0-4) /hpf Hyaline Casts 1 (0-2) /lpf Urine Mucus Rare H (None) /hpf 10/11/21 Range/Units 10:21 WBC (3.8-10.6) k/uL RBC (3.80-5.40) m/uL Hgb (11.4-16.0) gm/dL Hct (34.0-46.0) % MCV (80.0-100.0) fL MCH (25.0-35.0) pg MCHC (31.0-37.0) g/dL RDW (11.5-15.5) % Plt Count (150-450) k/uL MPV Neutrophils % % Lymphocytes % % Monocytes % % Eosinophils % % Basophils % % Neutrophils # (1.3-7.7) k/uL Lymphocytes # (1.0-4.8) k/uL Monocytes # (0-1.0) k/uL Eosinophils # (0-0.7) k/uL Basophils # (0-0.2) k/uL Sodium (137-145) mmol/L Potassium (3.5-5.1) mmol/L Chloride (98-107) mmol/L Carbon Dioxide (22-30) mmol/L Anion Gap mmol/L BUN (7-17) mg/dL Creatinine (0.52-1.04) mg/dL Est GFR (CKD-EPI)AfAm (>60 ml/min/1.73 sqM) Est GFR (CKD-EPI)NonAf (>60 ml/min/1.73 sqM) Glucose (74-99) mg/dL Plasma Lactic Acid [place] 0.7 (0.7-2.0) mmol/L Calcium (8.4-10.2) mg/dL Total Bilirubin (0.2-1.3) mg/dL AST (14-36) U/L ALT (4-34) U/L Alkaline Phosphatase (38-126) U/L Total Protein (6.3-8.2) g/dL Albumin (3.5-5.0) g/dL Amylase (30-110) U/L Lipase (23-300) U/L Urine Color Urine Appearance (Clear) Urine pH (5.0-8.0) Ur Specific [place] (1.001-1.035) Urine Protein (Negative) Urine Glucose (UA) (Negative) Urine Ketones (Negative) Urine Blood (Negative) Urine Nitrite (Negative) Urine Bilirubin (Negative) Urine Urobilinogen (<2.0) mg/dL Ur Leukocyte Esterase (Negative) Urine RBC (0-5) /hpf Urine WBC (0-5) /hpf Ur Squamous Epith Cells (0-4) /hpf Hyaline Casts (0-2) /lpf Urine Mucus (None) /hpf Disposition Clinical Impression: UTI (urinary tract infection), Flank pain Disposition: HOME SELF-CARE Condition: Stable Instructions (If sedation given, give patient instructions): Urinary Tract Infection in Women (ED), Flank Pain (ED) Additional Instructions: Please return to the Emergency Department if symptoms worsen or any other concerns. Prescriptions: Cephalexin [Keflex] 500 mg PO Q8HR #21 cap Is patient prescribed a controlled substance at d/c from ED?: No Referrals: Vaibhav Singh DO [Primary Care Provider] - 1-2 days Time of Disposition: 11:56
[2021-10-11] MEDS ORDERED: diphenhydrAMINE 50 MG/ML 1 ML VIAL IVP STA (10:30)
[2021-10-11 10:36] LABS: Basophils % (A) 1 %; Eosinophils # (A) 0.1 k/uL (0-0.7); Eosinophils % (A) 2 %; HCT 42.7 % (34.0-46.0); HGB 14.6 gm/dL (11.4-16.0); Lymphocytes # (A) 1.5 k/uL (1.0-4.8); Lymphocytes % (A) 25 %; MCH 31.7 pg (25.0-35.0); MCHC 34.1 g/dL (31.0-37.0); MCV 92.9 fL (80.0-100.0); Mean Platelet Volume 7.2; Monocytes # (A) 0.3 k/uL (0-1.0); Monocytes % (A) 5 %; Neutrophils % (A) 66 %; Platelet Count 275 k/uL (150-450); RBC 4.59 m/uL (3.80-5.40); RDW 13.3 % (11.5-15.5); WBC 6.1 k/uL (3.8-10.6)
[2021-10-11 10:46] LABS: Albumin 4.3 g/dL (3.5-5.0); Calcium 9.5 mg/dL (8.4-10.2); Potassium 4.1 mmol/L (3.5-5.1); Total Protein 7.4 g/dL (6.3-8.2)
[2021-10-11 10:50] LABS: Appearance,Urine Clear (Clear); Bilirubin,Urine Negative (Negative); Blood,Urine Negative (Negative); Color,Urine Yellow; Glucose,Urine (UA) Negative (Negative); Hyaline Casts,Urine 1 /lpf (0-2); Ketones,Urine Negative (Negative); Leukocyte Esterase,Urine Moderate (Negative); Mucus,Urine Rare /hpf; Nitrite,Urine Negative (Negative); PH, Urine 6.5 (5.0-8.0); Protein,Urine Trace (Negative); RBC,Urine 5 /hpf (0-5); Specific Gravity,Urine 1.023 (1.001-1.035); Squamous Epithelial Cell,Urine 1 /hpf (0-4); Urobilinogen,Urine <2.0 mg/dL (<2.0); WBC,Urine 6 /hpf (0-5)
[2021-10-11 11:00] VITALS: RESP 18
--- NOTE | 2021-10-11 11:13 | CT ---
EXAMINATION TYPE: CT abdomen pelvis wo con DATE OF EXAM: 10/11/2021 COMPARISON: 05/27/2021 HISTORY: Left sided flank pain. CT DLP: 862.5 mGycm Automated exposure control for dose reduction was used. TECHNIQUE: Helical acquisition of images was performed from the lung bases through the pelvis. FINDINGS: LUNG BASES: No significant abnormality is appreciated. LIVER/GB: No significant abnormality is appreciated. PANCREAS: No significant abnormality is seen. SPLEEN: No significant abnormality is seen. ADRENALS: No significant abnormality is seen. KIDNEYS: There are 2 punctate 2 mm calculi in the lower pole the right kidney. No hydronephrosis. Lef t kidney demonstrates no hydronephrosis or nephrolithiasis. ADENOPATHY: None visualized. OSSEOUS STRUCTURES: Curvature of the spine with hypertrophic and multilevel degenerative disc diseas e. BOWEL: Bowel gas pattern nonspecific with no obstruction. Diverticulosis of the colon with no diagno stic CT evidence of diverticulitis. OTHER: Aorta normal caliber with atherosclerotic changes. There is a small hiatal hernia. Small fat-c ontaining periumbilical hernia. Calcifications in the pelvis appear vascular. IMPRESSION: NONOBSTRUCTING PUNCTATE RIGHT RENAL LOWER POLE CALCULI MEASURING LESS THAN 5 MM RETAINED DEBRIS THROUGHOUT THE COLON CORRELATION IS DIVERTICULOSIS WITH NO CT EVIDENCE OF DIVERTICULITIS.
[2021-10-11] MEDS ORDERED: cefTRIAXone IN SWFI 1,000 MG/10 ML SYRINGE IVP STA (11:54)
[2021-10-11] MEDS ORDERED: ACET/COD 300 MG/30 MG STARTER PACK 6 TAB BTL PO STA (12:02)
[2021-10-11 12:22] VITALS: BP 150/64; PULSE 61
== END 2021-10-11 12:21 | disposition home or self-care (01) ==
LOC: EC 09:04
DX: N39.0 Urinary tract infection, site not specified (principal); N20.0 Calculus of kidney; I10 Essential (primary) hypertension; E78.5 Hyperlipidemia, unspecified; Z87.891 Personal history of nicotine dependence; Z79.899 Other long term (current) drug therapy
CPT/HCPCS: 36415; 80053; 82150; 83605; 83690; 85025; 81001; 87086; 74176; 99284; 96374; 96375 ×3; 96361; J1200; J2405; J0696; J1170

== ENCOUNTER → 2021-11-05 | Outpatient (CLI) | payer MEDICARE ==
--- NOTE | 2021-11-06 03:58 | MR ---
EXAMINATION TYPE: MR ankle RT wo con DATE OF EXAM: 11/05/2021 COMPARISON: None HISTORY: Rt ankle pain, pereoneal tendon tear Multiplanar multiecho imaging of the right ankle with no contrast. There is some mild diffuse subcutaneous edema around the ankle. Ankle mortise is anatomic. The collat eral ligaments are intact. The medial and lateral flexor tendons are intact. The Achilles tendon is i ntact. There is plantar and Achilles calcaneal spur formation. No fracture seen. The joint spaces are fairly normal. No evidence of focal bone destruction. There is small amount of fluid around the olivia candido tendon. No evidence of focal bone destruction. IMPRESSION: Calcaneal spurring. Mild subcutaneous edema. There is minimal fluid around the peroneal tendon that c ould relate to some mild tendinitis or synovitis.
== END | disposition home or self-care (01) ==
LOC: RADMRIMAIN 06:29
PROVIDERS: ATTEND Orthopaedic Surgery Foot and Ankle Surgery
DX: M77.31 Calcaneal spur, right foot (principal)

== ENCOUNTER 2023-02-06 05:36 | Inpatient (IN) | payer MEDICARE ==
[2023-02-06] MEDS ORDERED: SODIUM CHLORIDE 0.9% 1,000 ML IV STA (05:50)
--- NOTE | 2023-02-06 05:56 | ED ---
Neuro HPI - General Source: patient, family, RN notes reviewed, old records reviewed Mode of arrival: wheelchair Limitations: no limitations - History of Present Illness Is the patient presenting with stroke symptoms?: Yes -: hour(s) (6) Location: [place] History of same: No Place: home Severity: moderate Improves With: none Worsens With: none On Anticoagulants: No Context: sudden onset Associated Symptoms: vertigo Treatments Prior to Arrival: none <Terry Alex - Last Filed: 02/06/23 06:30> <Britney Anderson - Last Filed: 02/10/23 11:02> - General Chief Complaint: Neuro Symptoms/Deficit Stated Complaint: Unstable gait Time Seen by Provider: 02/06/23 05:50 - History of Present Illness Initial Comments: This is a 67-year-old female to the emergency department for evaluation. Patient states any time she stands up she gets very dizzy and weak the left she can maintain her balance she continues to fall to the left. She states it began while she was in bed she rolled over in the room began to spin around violently. She was nauseous without vomiting. Patient states last night before she went to bed she was feeling fine. She has have history of high blood pressure high cholesterol no current headache (Terry Alex) - Related Data Home Medications: Home Medications Medication Instructions Recorded Confirmed Atorvastatin [Lipitor] 5 mg PO HS 08/28/16 02/06/23 Calcium Carbonate 500 mg PO DAILY 02/06/23 02/06/23 Cholecalciferol (Vitamin D3) 75 mcg PO DAILY 02/06/23 02/06/23 [Vitamin D3 (3000 Iu)] Garlic 1,000 mg PO DAILY 02/06/23 02/06/23 metFORMIN HCL 500 mg PO HS 02/06/23 02/06/23 Previous Rx's Medication Instructions Recorded Meclizine [Antivert] 25 mg PO QID PRN 3 Days #12 tab 02/07/23 amLODIPine [Norvasc] 5 mg PO DAILY #30 tab 02/07/23 Allergies/Adverse Reactions: Allergies Allergy/AdvReac Type Severity Reaction Status Date / Time hydromorphone AdvReac Chest Verified 02/06/23 10:14 Pain/JOHNY Review of Systems ROS Other: All systems not noted in ROS Statement are negative. <Terry Alex - Last Filed: 02/06/23 06:30> ROS Other: All systems not noted in ROS Statement are negative. <Britney Anderson Sydni - Last Filed: 02/10/23 11:02> ROS Statement: Those systems with pertinent positive or pertinent negative responses have been documented in the HPI. General Exam Limitations: no limitations General appearance: alert, in no apparent distress Head exam: Present: atraumatic, normocephalic, normal inspection Eye exam: Present: normal appearance, PERRL, EOMI. Absent: scleral icterus, conjunctival injection, periorbital swelling ENT exam: Present: normal exam, mucous membranes moist Neck exam: Present: normal inspection. Absent: tenderness, meningismus, lymphadenopathy Respiratory exam: Present: normal lung sounds bilaterally. Absent: respiratory distress, wheezes, rales, rhonchi, stridor Cardiovascular Exam: Present: regular rate, normal rhythm, normal heart sounds. Absent: systolic murmur, diastolic murmur, rubs, gallop, clicks GI/Abdominal exam: Present: soft, normal bowel sounds. Absent: distended, tenderness, guarding, rebound, rigid Extremities exam: Present: normal inspection, full ROM, normal capillary refill. Absent: tenderness, pedal edema, joint swelling, calf tenderness Back exam: Present: normal inspection Neurological exam: Present: alert, oriented X3, CN II-XII intact Psychiatric exam: Present: normal affect, normal mood Skin exam: Present: warm, dry, intact, normal color. Absent: rash <Terry Alex - Last Filed: 02/06/23 06:30> Stroke [facility] - Lab Data Result diagrams: 02/06/23 05:58 - NIH Stroke Scale 1a. Level of Consciousness: (0) alert 1b. LOC Questions: (0) answers correctly 1c. LOC Commands: (0) performs tasks correctly 2. Best Gaze: (0) normal 3. Visual: (0) no visual loss 4. Facial Palsy: (0) normal symmetrical movement 5a. Motor Arm Left: (0) no drift 5b. Motor Arm Right: (0) no drift 6a. Motor Leg Left: (0) no drift 6b. Motor Leg Right: (0) no drift 7. Limb Ataxia: (0) absent 8. Sensory: (0) normal 9. Best Language: (0) no aphasia 10. Dysarthria: (0) normal 11. Extinction/Inattention: (0) no abnormality - Thrombolytic Inclusion/Exclusion Thrombolytic Exclusion Criteria: Onset of Symptoms Unknown, Symptom Onset > 4.5 Hours - Radiology Data Radiology results: report reviewed, image reviewed - EKG Data -: EKG Interpreted by Me (EKG is sinus 60 RI 171 QRS 95 QTC 426) <Terry Alex - Last Filed: 02/06/23 06:30> - Lab Data Result diagrams: 02/07/23 04:07 02/08/23 04:21 <Britney Anderson - Last Filed: 02/10/23 11:02> - Lab Data Lab Results 02/06/23 02/06/23 02/06/23 Range/Units 05:56 05:58 05:58 WBC 6.2 (3.8-10.6) k/uL RBC 4.51 (3.80-5.40) m/uL Hgb 14.2 (11.4-16.0) gm/dL Hct 42.0 (34.0-46.0) % MCV 93.0 (80.0-100.0) fL MCH 31.4 (25.0-35.0) pg MCHC 33.7 (31.0-37.0) g/dL RDW 12.8 (11.5-15.5) % Plt Count 280 (150-450) k/uL MPV 7.4 Immature Gran % (Auto) % Absolute Nucleated RBC % Neutrophils % 69 % Lymphocytes % 23 % Monocytes % 5 % Eosinophils % 1 % Basophils % 0 % Immature Gran # X 10*3/uL Neutrophils # 4.3 (1.3-7.7) k/uL Lymphocytes # 1.4 (1.0-4.8) k/uL Monocytes # 0.3 (0-1.0) k/uL Eosinophils # 0.1 (0-0.7) k/uL Basophils # 0.0 (0-0.2) k/uL NRBC/100 WBC Diff (0.00-0.01) X 10*3/uL PT 9.9 L (10.0-12.5) sec INR 0.9 (<1.2) APTT 22.5 (22.0-30.0) sec Sodium (137-145) mmol/L Potassium (3.5-5.1) mmol/L Chloride (98-107) mmol/L Carbon Dioxide (22-30) mmol/L Anion Gap mmol/L BUN (7-17) mg/dL Creatinine (0.52-1.04) mg/dL Est GFR (CKD-EPI) (>=60) Est GFR (CKD-EPI)AfAm (>60 ml/min/1.73 sqM) Est GFR (CKD-EPI)NonAf (>60 ml/min/1.73 sqM) BUN/Creatinine Ratio (12.00-20.00) Ratio Glucose (74-99) mg/dL POC Glucose (mg/dL) 138 H (70-110) mg/dL POC Glu [employer] HUMBERTO [address] Glu mg/dL mg/dL Hemoglobin A1c (<=6.0) % Calcium (8.4-10.2) mg/dL Total Bilirubin (0.2-1.3) mg/dL AST (14-36) U/L ALT (4-34) U/L Alkaline Phosphatase (38-126) U/L Creatine Kinase (30-135) U/L Troponin I (0.000-0.034) ng/mL Total Protein (6.3-8.2) g/dL Albumin (3.5-5.0) g/dL Triglycerides (0.00-149.00) mg/dL Cholesterol (0.00-200.00) mg/dL LDL Cholesterol, Calc (0.0-131.0) mg/dL VLDL Cholesterol, Calc (5.00-40.00) mg/dL HDL Cholesterol (40.00-60.00) mg/dL Cholesterol/HDL Ratio Ratio Vitamin B12 (200.0-944.0) pg/mL TSH (0.350-5.500) UIU/ML Free (T4) Reflex I (0.80-1.80) ng/dL Urine Color Urine Appearance (Clear) Urine pH (5.0-8.0) Ur Specific [place] (1.001-1.035) Urine Protein (Negative) Urine Glucose (UA) (Negative) Urine Ketones (Negative) Urine Blood (Negative) Urine Nitrite (Negative) Urine Bilirubin (Negative) Urine Urobilinogen (<2.0) mg/dL Ur Leukocyte Esterase (Negative) Urine RBC (0-5) /hpf Urine WBC (0-5) /hpf Ur Squamous Epith Cells (0-4) /hpf Urine Mucus (None) /hpf Urine Opiates Screen (NotDetected) Ur Oxycodone Screen (NotDetected) Urine Methadone Screen (NotDetected) Ur Propoxyphene Screen (NotDetected) Ur Barbiturates Screen (NotDetected) U Tricyclic Antidepress (NotDetected) Ur Phencyclidine Scrn (NotDetected) Ur Amphetamines Screen (NotDetected) U Methamphetamines Scrn (NotDetected) U Benzodiazepines Scrn (NotDetected) Urine Cocaine Screen (NotDetected) U Marijuana (THC) Screen (NotDetected) Serum Alcohol mg/dL 02/06/23 02/06/23 02/06/23 Range/Units 05:58 05:58 06:15 WBC (3.8-10.6) k/uL RBC (3.80-5.40) m/uL Hgb (11.4-16.0) gm/dL Hct (34.0-46.0) % MCV (80.0-100.0) fL MCH (25.0-35.0) pg MCHC (31.0-37.0) g/dL RDW (11.5-15.5) % Plt Count (150-450) k/uL MPV Immature Gran % (Auto) % Absolute Nucleated RBC % Neutrophils % % Lymphocytes % % Monocytes % % Eosinophils % % Basophils % % Immature Gran # X 10*3/uL Neutrophils # (1.3-7.7) k/uL Lymphocytes # (1.0-4.8) k/uL Monocytes # (0-1.0) k/uL Eosinophils # (0-0.7) k/uL Basophils # (0-0.2) k/uL NRBC/100 WBC Diff (0.00-0.01) X 10*3/uL PT (10.0-12.5) sec INR (<1.2) APTT (22.0-30.0) sec Sodium 137 (137-145) mmol/L Potassium 3.8 (3.5-5.1) mmol/L Chloride 102 (98-107) mmol/L Carbon Dioxide 21 L (22-30) mmol/L Anion Gap 14 mmol/L BUN 31 H (7-17) mg/dL Creatinine 0.96 (0.52-1.04) mg/dL Est GFR (CKD-EPI) (>=60) Est GFR (CKD-EPI)AfAm 70 (>60 ml/min/1.73 sqM) Est GFR (CKD-EPI)NonAf 61 (>60 ml/min/1.73 sqM) BUN/Creatinine Ratio (12.00-20.00) Ratio Glucose 136 H (74-99) mg/dL POC Glucose (mg/dL) (70-110) mg/dL POC Glu [employer] ID Estimated Ave Glu mg/dL mg/dL Hemoglobin A1c (<=6.0) % Calcium 9.6 (8.4-10.2) mg/dL Total Bilirubin 0.8 (0.2-1.3) mg/dL AST 34 (14-36) U/L ALT 30 (4-34) U/L Alkaline Phosphatase 97 (38-126) U/L Creatine Kinase 141 H (30-135) U/L Troponin I <0.012 (0.000-0.034) ng/mL Total Protein 7.2 (6.3-8.2) g/dL Albumin 4.3 (3.5-5.0) g/dL Triglycerides (0.00-149.00) mg/dL Cholesterol (0.00-200.00) mg/dL LDL Cholesterol, Calc (0.0-131.0) mg/dL VLDL Cholesterol, Calc (5.00-40.00) mg/dL HDL Cholesterol (40.00-60.00) mg/dL Cholesterol/HDL Ratio Ratio Vitamin B12 (200.0-944.0) pg/mL TSH (0.350-5.500) UIU/ML Free (T4) Reflex I (0.80-1.80) ng/dL Urine Color Urine Appearance (Clear) Urine pH (5.0-8.0) Ur Specific [place] (1.001-1.035) Urine Protein (Negative) Urine Glucose (UA) (Negative) Urine Ketones (Negative) Urine Blood (Negative) Urine Nitrite (Negative) Urine Bilirubin (Negative) Urine Urobilinogen (<2.0) mg/dL Ur Leukocyte Esterase (Negative) Urine RBC (0-5) /hpf Urine WBC (0-5) /hpf Ur Squamous Epith Cells (0-4) /hpf Urine Mucus (None) /hpf Urine Opiates Screen (NotDetected) Ur Oxycodone Screen (NotDetected) Urine Methadone Screen (NotDetected) Ur Propoxyphene Screen (NotDetected) Ur Barbiturates Screen (NotDetected) U Tricyclic Antidepress (NotDetected) Ur Phencyclidine Scrn (NotDetected) Ur Amphetamines Screen (NotDetected) U Methamphetamines Scrn (NotDetected) U Benzodiazepines Scrn (NotDetected) Urine Cocaine Screen (NotDetected) U Marijuana (THC) Screen (NotDetected) Serum Alcohol <10 mg/dL 02/06/23 02/06/23 02/07/23 Range/Units 06:15 20:16 04:07 WBC (3.8-10.6) k/uL RBC (3.80-5.40) m/uL Hgb (11.4-16.0) gm/dL Hct (34.0-46.0) % MCV (80.0-100.0) fL MCH (25.0-35.0) pg MCHC (31.0-37.0) g/dL RDW (11.5-15.5) % Plt Count (150-450) k/uL MPV Immature Gran % (Auto) % Absolute Nucleated RBC % Neutrophils % % Lymphocytes % % Monocytes % % Eosinophils % % Basophils % % Immature Gran # X 10*3/uL Neutrophils # (1.3-7.7) k/uL Lymphocytes # (1.0-4.8) k/uL Monocytes # (0-1.0) k/uL Eosinophils # (0-0.7) k/uL Basophils # (0-0.2) k/uL NRBC/100 WBC Diff (0.00-0.01) X 10*3/uL PT (10.0-12.5) sec INR (<1.2) APTT (22.0-30.0) sec Sodium 139 (137-145) mmol/L Potassium 4.1 (3.5-5.1) mmol/L Chloride 104 (98-107) mmol/L Carbon Dioxide 21.5 L (22-30) mmol/L Anion Gap 13.50 H mmol/L BUN 31.2 H (7-17) mg/dL Creatinine 1.4 (0.52-1.04) mg/dL Est GFR (CKD-EPI) 41 L (>=60) Est GFR (CKD-EPI)AfAm (>60 ml/min/1.73 sqM) Est GFR (CKD-EPI)NonAf (>60 ml/min/1.73 sqM) BUN/Creatinine Ratio 22.29 H (12.00-20.00) Ratio Glucose 134 H (74-99) mg/dL POC Glucose (mg/dL) 315 H (70-110) mg/dL POC Glu [employer] ID PaytonchloéAlia chery [address] Glu mg/dL mg/dL Hemoglobin A1c (<=6.0) % Calcium 9.4 (8.4-10.2) mg/dL Total Bilirubin (0.2-1.3) mg/dL AST (14-36) U/L ALT (4-34) U/L Alkaline Phosphatase (38-126) U/L Creatine Kinase (30-135) U/L Troponin I (0.000-0.034) ng/mL Total Protein (6.3-8.2) g/dL Albumin (3.5-5.0) g/dL Triglycerides 97.30 (0.00-149.00) mg/dL Cholesterol 150.00 (0.00-200.00) mg/dL LDL Cholesterol, Calc 68.8 (0.0-131.0) mg/dL VLDL Cholesterol, Calc 19.46 (5.00-40.00) mg/dL HDL Cholesterol 61.70 H (40.00-60.00) mg/dL Cholesterol/HDL Ratio 2.43 Ratio Vitamin B12 483.0 (200.0-944.0) pg/mL TSH 0.236 L (0.350-5.500) UIU/ML Free (T4) Reflex I 1.24 (0.80-1.80) ng/dL Urine Color Urine Appearance (Clear) Urine pH (5.0-8.0) Ur Specific [place] (1.001-1.035) Urine Protein (Negative) Urine Glucose (UA) (Negative) Urine Ketones (Negative) Urine Blood (Negative) Urine Nitrite (Negative) Urine Bilirubin (Negative) Urine Urobilinogen (<2.0) mg/dL Ur Leukocyte Esterase (Negative) Urine RBC (0-5) /hpf Urine WBC (0-5) /hpf Ur Squamous Epith Cells (0-4) /hpf Urine Mucus (None) /hpf Urine Opiates Screen (NotDetected) Ur Oxycodone Screen (NotDetected) Urine Methadone Screen (NotDetected) Ur Propoxyphene Screen (NotDetected) Ur Barbiturates Screen (NotDetected) U Tricyclic Antidepress (NotDetected) Ur Phencyclidine Scrn (NotDetected) Ur Amphetamines Screen (NotDetected) U Methamphetamines Scrn (NotDetected) U Benzodiazepines Scrn (NotDetected) Urine Cocaine Screen (NotDetected) U Marijuana (THC) Screen (NotDetected) Serum Alcohol mg/dL 02/07/23 02/07/23 02/07/23 Range/Units 04:07 04:07 05:10 WBC 8.70 (3.8-10.6) k/uL RBC 3.95 L (3.80-5.40) m/uL Hgb 12.3 (11.4-16.0) gm/dL Hct 37.1 L (34.0-46.0) % MCV 93.9 (80.0-100.0) fL MCH 31.1 (25.0-35.0) pg MCHC 33.2 (31.0-37.0) g/dL RDW 12.9 (11.5-15.5) % Plt Count 277 (150-450) k/uL MPV 9.9 Immature Gran % (Auto) 0.50 % Absolute Nucleated RBC 0 % Neutrophils % 84.8 % Lymphocytes % 10.6 % Monocytes % 4.0 % Eosinophils % 0 % Basophils % 0.1 % Immature Gran # 0.04 X 10*3/uL Neutrophils # 7.38 (1.3-7.7) k/uL Lymphocytes # 0.92 (1.0-4.8) k/uL Monocytes # 0.35 (0-1.0) k/uL Eosinophils # 0 L (0-0.7) k/uL Basophils # 0.01 (0-0.2) k/uL NRBC/100 WBC Diff 0 (0.00-0.01) X 10*3/uL PT (10.0-12.5) sec INR (<1.2) APTT (22.0-30.0) sec Sodium (137-145) mmol/L Potassium (3.5-5.1) mmol/L Chloride (98-107) mmol/L Carbon Dioxide (22-30) mmol/L Anion Gap mmol/L BUN (7-17) mg/dL Creatinine (0.52-1.04) mg/dL Est GFR (CKD-EPI) (>=60) Est GFR (CKD-EPI)AfAm (>60 ml/min/1.73 sqM) Est GFR (CKD-EPI)NonAf (>60 ml/min/1.73 sqM) BUN/Creatinine Ratio (12.00-20.00) Ratio Glucose (74-99) mg/dL POC Glucose (mg/dL) (70-110) mg/dL POC Glu [employer] ID Estimated Ave Glu mg/dL 137 mg/dL Hemoglobin A1c 6.4 H (<=6.0) % Calcium (8.4-10.2) mg/dL Total Bilirubin (0.2-1.3) mg/dL AST (14-36) U/L ALT (4-34) U/L Alkaline Phosphatase (38-126) U/L Creatine Kinase (30-135) U/L Troponin I (0.000-0.034) ng/mL Total Protein (6.3-8.2) g/dL Albumin (3.5-5.0) g/dL Triglycerides (0.00-149.00) mg/dL Cholesterol (0.00-200.00) mg/dL LDL Cholesterol, Calc (0.0-131.0) mg/dL VLDL Cholesterol, Calc (5.00-40.00) mg/dL HDL Cholesterol (40.00-60.00) mg/dL Cholesterol/HDL Ratio Ratio Vitamin B12 (200.0-944.0) pg/mL TSH (0.350-5.500) UIU/ML Free (T4) Reflex I (0.80-1.80) ng/dL Urine Color Light Yellow Urine Appearance Clear (Clear) Urine pH 6.5 (5.0-8.0) Ur Specific [place] 1.027 (1.001-1.035) Urine Protein Negative (Negative) Urine Glucose (UA) Trace H (Negative) Urine Ketones Negative (Negative) Urine Blood Small H (Negative) Urine Nitrite Negative (Negative) Urine Bilirubin Negative (Negative) Urine Urobilinogen <2.0 (<2.0) mg/dL Ur Leukocyte Esterase Negative (Negative) Urine RBC 13 H (0-5) /hpf Urine WBC 2 (0-5) /hpf Ur Squamous Epith Cells 2 (0-4) /hpf Urine Mucus Rare H (None) /hpf Urine Opiates Screen (NotDetected) Ur Oxycodone Screen (NotDetected) Urine Methadone Screen (NotDetected) Ur Propoxyphene Screen (NotDetected) Ur Barbiturates Screen (NotDetected) U Tricyclic Antidepress (NotDetected) Ur Phencyclidine Scrn (NotDetected) Ur Amphetamines Screen (NotDetected) U Methamphetamines Scrn (NotDetected) U Benzodiazepines Scrn (NotDetected) Urine Cocaine Screen (NotDetected) U Marijuana (THC) Screen (NotDetected) Serum Alcohol mg/dL 02/07/23 02/07/23 02/07/23 Range/Units 05:10 05:47 12:12 WBC (3.8-10.6) k/uL RBC (3.80-5.40) m/uL Hgb (11.4-16.0) gm/dL Hct (34.0-46.0) % MCV (80.0-100.0) fL MCH (25.0-35.0) pg MCHC (31.0-37.0) g/dL RDW (11.5-15.5) % Plt Count (150-450) k/uL MPV Immature Gran % (Auto) % Absolute Nucleated RBC % Neutrophils % % Lymphocytes % % Monocytes % % Eosinophils % % Basophils % % Immature Gran # X 10*3/uL Neutrophils # (1.3-7.7) k/uL Lymphocytes # (1.0-4.8) k/uL Monocytes # (0-1.0) k/uL Eosinophils # (0-0.7) k/uL Basophils # (0-0.2) k/uL NRBC/100 WBC Diff (0.00-0.01) X 10*3/uL PT (10.0-12.5) sec INR (<1.2) APTT (22.0-30.0) sec Sodium (137-145) mmol/L Potassium (3.5-5.1) mmol/L Chloride (98-107) mmol/L Carbon Dioxide (22-30) mmol/L Anion Gap mmol/L BUN (7-17) mg/dL Creatinine (0.52-1.04) mg/dL Est GFR (CKD-EPI) (>=60) Est GFR (CKD-EPI)AfAm (>60 ml/min/1.73 sqM) Est GFR (CKD-EPI)NonAf (>60 ml/min/1.73 sqM) BUN/Creatinine Ratio (12.00-20.00) Ratio Glucose (74-99) mg/dL POC Glucose (mg/dL) 143 H 110 (70-110) mg/dL POC Glu [employer] ID Alia Donnelly Samantha [address] Glu mg/dL mg/dL Hemoglobin A1c (<=6.0) % Calcium (8.4-10.2) mg/dL Total Bilirubin (0.2-1.3) mg/dL AST (14-36) U/L ALT (4-34) U/L Alkaline Phosphatase (38-126) U/L Creatine Kinase (30-135) U/L Troponin I (0.000-0.034) ng/mL Total Protein (6.3-8.2) g/dL Albumin (3.5-5.0) g/dL Triglycerides (0.00-149.00) mg/dL Cholesterol (0.00-200.00) mg/dL LDL Cholesterol, Calc (0.0-131.0) mg/dL VLDL Cholesterol, Calc (5.00-40.00) mg/dL HDL Cholesterol (40.00-60.00) mg/dL Cholesterol/HDL Ratio Ratio Vitamin B12 (200.0-944.0) pg/mL TSH (0.350-5.500) UIU/ML Free (T4) Reflex I (0.80-1.80) ng/dL Urine Color Urine Appearance (Clear) Urine pH (5.0-8.0) Ur Specific [place] (1.001-1.035) Urine Protein (Negative) Urine Glucose (UA) (Negative) Urine Ketones (Negative) Urine Blood (Negative) Urine Nitrite (Negative) Urine Bilirubin (Negative) Urine Urobilinogen (<2.0) mg/dL Ur Leukocyte Esterase (Negative) Urine RBC (0-5) /hpf Urine WBC (0-5) /hpf Ur Squamous Epith Cells (0-4) /hpf Urine Mucus (None) /hpf Urine Opiates Screen Not Detected (NotDetected) Ur Oxycodone Screen Not Detected (NotDetected) Urine Methadone Screen Not Detected (NotDetected) Ur Propoxyphene Screen Not Detected (NotDetected) Ur Barbiturates Screen Not Detected (NotDetected) U Tricyclic Antidepress Not Detected (NotDetected) Ur Phencyclidine Scrn Not Detected (NotDetected) Ur Amphetamines Screen Not Detected (NotDetected) U Methamphetamines Scrn Not Detected (NotDetected) U Benzodiazepines Scrn Detected H (NotDetected) Urine Cocaine Screen Not Detected (NotDetected) U Marijuana (THC) Screen Not Detected (NotDetected) Serum Alcohol mg/dL - Medical Decision Making Was pt. sent in by a medical professional or institution (Dr. PA, WAITER/WAITRESS CAFETERIA, urgent care, hospital, or [facility]...) When possible be specific @ -No Did you speak to anyone other than the patient for history (EMS, parent, family, police, friend...)? What history was obtained from this source @ - Did you review nursing and triage notes (agree or disagree)? Why? @ -I reviewed and agree with nursing and triage notes Were old charts reviewed (outside hosp., previous admission, EMS record, old EKG, old radiological studies, urgent care reports/EKG's, [facility] records)? Report findings @ -No old charts were reviewed Differential Diagnosis (chest pain, altered mental status, abdominal pain women, abdominal pain men, vaginal bleeding, weakness, fever, dyspnea, syncope, headache, dizziness, GI bleed, back pain, seizure, CVA, palpatations, mental health, musculoskeletal)? @ -vertigo, cva, tia, vbi EKG interpreted by me (3pts min.). @ -no X-rays interpreted by me (1pt min.). @ -None done CT interpreted by me (1pt min.). @ -yes, no acute process U/S interpreted by me (1pt. min.). @ -None done What testing was considered but not performed or refused? (CT, X-rays, U/S, labs)? Why? @ -None What meds were considered but not given or refused? Why? @ -None Did you discuss the management of the patient with other professionals (professionals i.e. DrJaimee, PA, WAITER/WAITRESS CAFETERIA, lab, RT, psych nurse, manager social, angle furnaceman, teacher, traffic officer, correctional case manager)? Give summary @ -Dr. Lees Was smoking cessation discussed for >3mins.? @ -No Was critical care preformed (if so, how long)? @ -No Were there social determinants of health that impacted care today? How? (Homelessness, low income, unemployed, alcoholism, drug addiction, transportat ion, low edu. Level, literacy, decrease access to med. care, [facility], rehab)? @ -No Was there de-escalation of care discussed even if they declined (Discuss DNR or withdrawal of care, Hospice)? DNR status @ -No What co-morbidities impacted this encounter? (DM, HTN, Smoking, COPD, CAD, Cancer, CVA, ARF, Chemo, Hep., AIDS, mental health diagnosis, sleep apnea, morbid obesity)? @ -None Was patient admitted / discharged? Hospital course, mention meds given and route, prescriptions, significant lab abnormalities, going to OR and other pertinent info. @ -Patient signed out to me from Dr. Alex. Patient cannot ambulate after the meclizine. She is given a dose of Valium and ambulate again for which she continues to be off balance. I did discuss the treatment options with the patient. Feel that the patient should be admitted for a neurology consultation for which she was agreeable. I called and spoke with Dr. Lees who agreed to admit the patient Undiagnosed new problem with uncertain prognosis? @ -Yes Drug Therapy requiring intensive monitoring for toxicity (Heparin, Nitro, Insulin, Cardizem)? @ -No Were any procedures done? @ -No Diagnosis/symptom? @ -acute ataxia Acute, or Chronic, or Acute on Chronic? @ -acute Uncomplicated (without systemic symptoms) or Complicated (systemic symptoms)? @ -complicated Side effects of treatment? @ -No Exacerbation, Progression, or Severe Exacerbation? @ -No Poses a threat to life or bodily function? How? (Chest pain, [place], [place], pneumonia, PE, COPD, DKA, ARF, appy, cholecystitis, CVA, Diverticulitis, Homicidal, Suicidal, threat to staff... and all critical care pts) @ -No (Britney Anderson) Past Medical History Past Medical History: Hyperlipidemia, Hypertension Additional Past Medical History / Comment(s): INJURY TO LT KNEE History of Any Multi-Drug Resistant Organisms: None Reported Past Surgical History: Appendectomy, Orthopedic Surgery Additional Past Surgical History / Comment(s): SURG RT HAND. LT KNEE- ARTHROSCOPIC ; LT ROTATOR CUFF REPAIR , COLONOSCOPY. Past Anesthesia/Blood Transfusion Reactions: Previous Problems w/ Anesthesia, Postoperative Nausea & Vomiting (PONV) Past Psychological History: Panic Disorder Smoking Status: Former smoker Past Alcohol Use History: Daily Past Drug Use History: None Reported - Past Family History Sister(s) Family Medical History: Cancer, Deep Vein Thrombosis (DVT), Myocardial Infarction ([place]) Brother(s) Family Medical History: Cancer <Terry Alex B - Last Filed: 02/06/23 06:30> Course <Terry Alex - Last Filed: 02/06/23 06:30> Vital Signs 02/06/23 02/06/23 02/06/23 05:38 05:50 06:05 Temperature 96.7 F L 97.8 F 98 F Pulse Rate 66 81 79 Pulse Rate [ Pulse Oximetery ] Respiratory 18 16 18 Rate Blood Pressure 160/79 123/84 121/77 Blood Pressure [Right Arm] O2 Sat by Pulse 98 96 97 Oximetry 02/06/23 02/06/23 02/06/23 06:20 09:12 11:01 Temperature 97.9 F Pulse Rate 71 73 62 Pulse Rate [ Pulse Oximetery ] Respiratory 18 20 20 Rate Blood Pressure 137/61 139/91 117/60 Blood Pressure [Right Arm] O2 Sat by Pulse 98 98 95 Oximetry 02/06/23 02/06/23 02/06/23 13:09 15:00 15:38 Temperature 97.7 F Pulse Rate 68 65 Pulse Rate [ 64 Pulse Oximetery ] Respiratory 20 17 20 Rate Blood Pressure 140/75 132/73 Blood Pressure 155/69 [Right Arm] O2 Sat by Pulse 95 95 94 L Oximetry - Reevaluation(s) Reevaluation #1: 02/06/23 05:58 Medical records reviewed (Terry Alex) Reevaluation #2: 02/06/23 05:58 Patient's symptoms aren't improved (Terry Alex) Reevaluation #4: 02/06/23 05:58 Was pt. sent in by a medical professional or institution ([facility], [facility], urgent care, hospital, or [facility]...) When possible be specific @ -no Did you speak to anyone other than the patient for history (EMS, parent, family, police, friend...)? What history was obtained from this source @ -no Did you review nursing and triage notes (agree or disagree)? Why? @ -agree Are old charts reviewed (outside hosp., previous admission, EMS record, old EKG, old radiological studies, urgent care reports/EKG's, [facility] records)? Report findings @ -yes Differential Diagnosis (chest pain, altered mental status, abdominal pain women, abdominal pain men, vaginal bleeding, weakness, fever, dyspnea, syncope, headache, dizziness, GI bleed, back pain, seizure, CVA, palpatations, mental health, musculoskeletal)? @ -prior EKG interpreted by me (3pts min.). @ -yes X-rays interpreted by me (1pt min.). @ -yes CT interpreted by me (1pt min.). @ -no U/S interpreted by me (1pt. min.). @ -no What testing was considered but not performed or refused? (CT, X-rays, U/S, labs )? Why? @ -none What meds were considered but not given or refused? Why? @ -none Did you discuss the management of the patient with other professionals (professionals i.e. ELIF Benjamin, WAITER/WAITRESS [employer], lab, RT, psych nurse, manager social, angle furnaceman, teacher, traffic officer, correctional case manager)? Give summary @ -no Was smoking cessation discussed for >3mins.? @ -no Was critical care preformed (if so, how long)? @ -no Were there social determinants of health that impacted care today? How? (Homelessness, low income, unemployed, alcoholism, drug addiction, transportation, low edu. Level, literacy, decrease access to med. care, [facility], rehab)? @ -none Was there de-escalation of care discussed even if they declined (Discuss DNR or withdrawal of care, Hospice)? DNR status @ -no What co-morbidities impacted this encounter? (DM, HTN, Smoking, COPD, CAD, Cancer, CVA, ARF, Chemo, Hep., AIDS, mental health diagnosis, sleep apnea, morbid obesity)? @ -none Was patient admitted / discharged? Hospital course, mention meds given and route, prescriptions, significant lab abnormalities, going to OR and other pertinent info. @ - Undiagnosed new problem with uncertain prognosis? @ -no Drug Therapy requiring intensive monitoring for toxicity (Heparin, Nitro, Insulin, Cardizem)? @ -no Were any procedures done? @ -no Diagnosis/symptom? @ - Acute, or Chronic, or Acute on Chronic? @ -Acute Uncomplicated (without systemic symptoms) or Complicated (systemic symptoms)? @ -Complicated Side effects of treatment? @ -no Exacerbation, Progression, or Severe Exacerbation? @ -exacerbation Poses a threat to life or bodily function? How? (Chest pain, [place], [place], pneumonia, PE, COPD, DKA, ARF, appy, cholecystitis, CVA, Diverticulitis, Homicidal, Suicidal, threat to staff... and all critical care pts) @ -yes (Terry Alex) Reevaluation #5: 02/06/23 05:58 Differential Dizziness: Benign paroxysmal positional Vertigo, Menieres disease, otitis media, acoustic neuroma, vertebrobasilar insufficiency, cerebellar stroke, encephalitis, hypovolemic, arrhythmia, coronary artery syndrome, anemia, this is not meant to be an all-inclusive list (Terry Alex) Disposition Is patient prescribed a controlled substance at d/c from ED?: No Time of Disposition: 06:30 <Terry Alex - Last Filed: 02/06/23 06:30> Is patient prescribed a controlled substance at d/c from ED?: No Decision to Admit Reason: Admit from EC Decision Date: 02/06/23 Decision Time: 10:04 <Britney Anderson - Last Filed: 02/10/23 11:02> Clinical Impression: Ataxia Disposition: ADMITTED IP TO THIS HOSP Condition: Stable
[2023-02-06 05:57] LABS: Glucose,Whole Blood 138 mg/dL (70-110)
[2023-02-06] MEDS ORDERED: MECLIZINE 12.5 MG TAB PO STA (05:59)
[2023-02-06] MEDS ORDERED: ASPIRIN 81 MG PO STA (05:59)
[2023-02-06 06:12] LABS: Basophils % (A) 0 %; Eosinophils # (A) 0.1 k/uL (0-0.7); Eosinophils % (A) 1 %; HGB 14.2 gm/dL (11.4-16.0); Lymphocytes # (A) 1.4 k/uL (1.0-4.8); Lymphocytes % (A) 23 %; MCH 31.4 pg (25.0-35.0); MCHC 33.7 g/dL (31.0-37.0); Mean Platelet Volume 7.4; Monocytes # (A) 0.3 k/uL (0-1.0); Monocytes % (A) 5 %; Neutrophils # (A) 4.3 k/uL (1.3-7.7); Neutrophils % (A) 69 %; Platelet Count 280 k/uL (150-450); RBC 4.51 m/uL (3.80-5.40); RDW 12.8 % (11.5-15.5); WBC 6.2 k/uL (3.8-10.6)
[2023-02-06 06:19] LABS: INR 0.9 (<1.2); Partial Thromboplastin Time 22.5 sec (22.0-30.0); Prothrombin Time 9.9 sec (10.0-12.5)
--- NOTE | 2023-02-06 06:22 | CT ---
EXAM: CT Head Without Intravenous Contrast CLINICAL HISTORY: ITS.REASON CT Reason: Neuro deficit, acute, stroke suspected TECHNIQUE: Axial computed tomography images of the head/brain without intravenous contrast. CTDI is 48.8 mGy and DLP is 1113 mGy-cm. This CT exam was performed using one or more of the following dose reduction techniques: automated exposure control, adjustment of the mA and/or kV according to patient size, and/or use of iterative reconstruction technique. COMPARISON: No relevant prior studies available. FINDINGS: Brain: Unremarkable. No hemorrhage. No significant white matter disease. No edema. Ventricles: Unremarkable. No ventriculomegaly. Bones/joints: Unremarkable. No acute fracture. Soft tissues: Unremarkable. Sinuses: Unremarkable as visualized. No acute sinusitis. Mastoid air cells: Unremarkable as visualized. No mastoid effusion. IMPRESSION: No acute intracranial pathology. If persistent clinical concern for acute stroke, MRI could further evaluate
--- NOTE | 2023-02-06 06:24 | CT ---
EXAM: CT Angiography Head With Intravenous Contrast CLINICAL HISTORY: ITS.REASON CT Reason: Neuro deficit, acute, stroke suspected TECHNIQUE: Axial computed tomographic angiography images of the head with intravenous contrast. CTDI is 16.24 mGy and DLP is 19.2 mGy-cm. This CT exam was performed using one or more of the following dose reduction techniques: automated exposure control, adjustment of the mA and/or kV according to patient size, and/or use of iterative reconstruction technique. MIP reconstructed images were created and reviewed. COMPARISON: Concurrent CT head FINDINGS: Right internal carotid artery: No acute findings. Intracranial segment is patent with no significant stenosis. No aneurysm. Right anterior cerebral artery: Unremarkable. No occlusion or significant stenosis. No aneurysm. Right middle cerebral artery: Unremarkable. No occlusion or significant stenosis. No aneurysm. Right posterior cerebral artery: Unremarkable. No occlusion or significant stenosis. No aneurysm. Right vertebral artery: Unremarkable as visualized. Left internal carotid artery: No acute findings. Intracranial segment is patent with no significant stenosis. No aneurysm. Left anterior cerebral artery: Unremarkable. No occlusion or significant stenosis. No aneurysm. Left middle cerebral artery: Unremarkable. No occlusion or significant stenosis. No aneurysm. Left posterior cerebral artery: Unremarkable. No occlusion or significant stenosis. No aneurysm. Left vertebral artery: Unremarkable as visualized. Basilar artery: Unremarkable. No occlusion or significant stenosis. No aneurysm. IMPRESSION: No large vessel occlusion, significant stenosis, aneurysm or vascular malformation. EXAM: CT Angiography Neck With Intravenous Contrast CLINICAL HISTORY: ITS.REASON CT Reason: Neuro deficit, acute, stroke suspected TECHNIQUE: Routine carotid CT angiography protocol was performed with intravenous contrast. NASCET criteria using the distal ICAs for comparison were used for evaluation of stenoses. CTDI is 10.1 mGy and DLP is 442 mGy-cm. This CT exam was performed using one or more of the following dose reduction techniques: automated exposure control, adjustment of the mA and/or kV according to patient size, and/or use of iterative reconstruction technique. MIP reconstructed images were created and reviewed. COMPARISON: None. FINDINGS: VASCULATURE: Right common carotid artery: Unremarkable. No occlusion or significant stenosis. No dissection. Right internal carotid artery: Unremarkable. Extracranial segment is patent with no occlusion or significant stenosis. No dissection. Right external carotid artery: Unremarkable. No occlusion. Right vertebral artery: Unremarkable. No occlusion or significant stenosis. No dissection. Left common carotid artery: Unremarkable. No occlusion or significant stenosis. No dissection. Left internal carotid artery: Unremarkable. Extracranial segment is patent with no occlusion or significant stenosis. No dissection. Left external carotid artery: Unremarkable. No occlusion. Left vertebral artery: Unremarkable. No occlusion or significant stenosis. No dissection. NECK: Bones/joints: Unremarkable. Soft tissues: Unremarkable. Lung apices: Clear. CAROTID STENOSIS REFERENCE USING NASCET CRITERIA: % ICA stenosis = (1 - narrowest ICA diameter/diameter of distal cervical ICA) x 100. Mild - <50% stenosis. Moderate - 50-69% stenosis. Severe - 70-94% stenosis. Near occlusion - 95-99% stenosis. Occluded - 100% stenosis. IMPRESSION: Unremarkable CTA neck.
[2023-02-06] MEDS ORDERED: diphenhydrAMINE 50 MG/ML 1 ML VIAL IVP STA (06:29)
[2023-02-06] MEDS ORDERED: ONDANSETRON 4 MG/2 ML VIAL IVP STA (06:29)
[2023-02-06 07:28] LABS: ALT 30 U/L (4-34); AST 34 U/L (14-36); African American GFR (CKD) 70 (>60 ml/min/1.73 sqM); Albumin 4.3 g/dL (3.5-5.0); Alkaline Phosphatase 97 U/L (38-126); Anion Gap 14 mmol/L; Blood Urea Nitrogen 31 mg/dL (7-17); Calcium 9.6 mg/dL (8.4-10.2); Carbon Dioxide 21 mmol/L (22-30); Chloride 102 mmol/L (98-107); Creatine Kinase 141 U/L (30-135); Glucose 136 mg/dL (74-99); Non-African American GFR(CKD) 61 (>60 ml/min/1.73 sqM); Potassium 3.8 mmol/L (3.5-5.1); Sodium 137 mmol/L (137-145); Total Bilirubin 0.8 mg/dL (0.2-1.3); Total Protein 7.2 g/dL (6.3-8.2)
[2023-02-06] MEDS ORDERED: NALOXONE 0.4 MG/ML 1 ML VIAL IV PRN (10:04)
[2023-02-06] MEDS ORDERED: DEXAMETHASONE SOD PHOSPHATE 10 MG/ML 1 ML VIAL IVP STA (10:09)
--- NOTE | 2023-02-06 17:00 | P.CNNES ---
History of Present Illness Consult date: 02/06/23 Requesting physician: Britney Anderson Reason for Consult: ataxia History of Present Illness: This is a 67-year-old woman with history of hypertension, hypercholesteremia, newly diagnosed diabetes mellitus who is on steady walking and leaning towards the left. Patient is accompanied with her was at bedside. Patient stated that that she woke up about midnight and the she noticed that she was unsteady walk-in and leaning towards the left. Her last normal state was about 10:30 PM last night she was doing well. She denies any head trauma. She denies any ringing in the ears any falls and recent fevers. She denies of any visual disturbance, any focal weakness, difficulty swallowing, difficulty getting her w ords out, denies of any dizziness. She denies any history of stroke. The patient is not on any antiplatelet. He states that she has palpitation intermittently. Patient denies of any tobacco use or any illicit drug use. She socially drinks alcohol. Patient denies off any neck pain. Some other workup during this hospital visit consisted of: CBC with differential is unremarkable. Sodium is 137, initial serum glucose is 136, calcium is 9.6, CK levels 141. CT of the head is reported as no acute intracranial pathology. If persistent clinical concern for acute stroke, MRI could Further evaluate. I personally reviewed the CT of the head and I agree there is no acute or subacute ischemia and there is no bleed. CT angiography of the head and neck was reported as unremarkable CT and dry from the neck and for the CT angiography of the head is reported as no large vessel occlusion, significant stenosis, aneurysm or vascular malformation. EKG is reported as sinus rhythm. Normal EKG. Serum alcohol level was less than 10. Review of Systems Review of system: The 12 point system was reviewed and apparent positive and negative per HPI. Past Medical History Past Medical History: Hyperlipidemia, Hypertension Additional Past Medical History / Comment(s): INJURY TO LT KNEE History of Any Multi-Drug Resistant Organisms: None Reported Past Surgical History: Appendectomy, Orthopedic Surgery Additional Past Surgical History / Comment(s): SURG RT HAND. LT KNEE- ARTHROSCOPIC ; LT ROTATOR CUFF REPAIR , COLONOSCOPY. Past Anesthesia/Blood Transfusion Reactions: Previous Problems w/ Anesthesia, Postoperative Nausea & Vomiting (PONV) Past Psychological History: Panic Disorder Smoking Status: Former smoker Past Alcohol Use History: Daily Past Drug Use History: None Reported - Past Family History Sister(s) Family Medical History: Cancer, Deep Vein Thrombosis (DVT), Myocardial Infarction ([place]) Brother(s) Family Medical History: Cancer Medications and Allergies Home Medications Medication Instructions Recorded Confirmed Type Atorvastatin [Lipitor] 5 mg PO HS 08/28/16 02/06/23 History amLODIPine [Norvasc] 2.5 mg PO DAILY 07/24/21 02/06/23 History Calcium Carbonate 500 mg PO DAILY 02/06/23 02/06/23 History Cholecalciferol (Vitamin D3) 75 mcg PO DAILY 02/06/23 02/06/23 History [Vitamin D3 (3000 Iu)] Garlic 1,000 mg PO DAILY 02/06/23 02/06/23 History metFORMIN HCL 500 mg PO HS 02/06/23 02/06/23 History Allergies Allergy/AdvReac Type Severity Reaction Status Date / Time hydromorphone AdvReac Chest Verified 02/06/23 10:14 Pain/JOHNY Physical Examination - Vital Signs Vital Signs: Vital Signs Temp Pulse Pulse Resp BP BP Pulse Ox 02/06/23 15:38 65 20 132/73 94 L 02/06/23 15:00 97.7 F 64 17 155/69 95 02/06/23 13:09 68 20 140/75 95 02/06/23 11:01 62 20 117/60 95 02/06/23 09:12 73 20 139/91 98 02/06/23 06:20 97.9 F 71 18 137/61 98 02/06/23 06:05 98 F 79 18 121/77 97 02/06/23 05:50 97.8 F 81 16 123/84 96 02/06/23 05:38 96.7 F L 66 18 160/79 98 Intake and Output 02/06/23 02/06/23 02/06/23 06:59 14:59 22:59 Other: Weight 81.647 kg GENERAL: The patient is lying in bed and is not in acute distress. NEUROLOGICAL: Higher mental function: The patient is awake, alert, oriented to self, place and time. Patient is following commands. No aphasia and no neglect. Cranial nerves: The pupils are round, equal and reactive to light. Visual montoya are full to confrontation throughout. Extraocular movement is intact no nystagmus is noted. Facial sensation is normal to touch throughout. The facial strength is normal throughout. Hearing is normal bilaterally to hand rub. Tongue is midline and moved [id number] without any difficulty. No dysarthria is noted. Shoulder shrug is normal bilaterally. Motor: Unsteady walking and leaning towards the left. I had help with the assist her walk since she she was leaning towards the left. The strength is 5 over 5 throughout. Normal tone and bulk. Cerebellum: Normal finger to nose heel to chan bilaterally. Sensation: Sensation is normal to touch throughout. Reflexes (right/left): Biceps 2+/2+; triceps 2+/2-3+; brachioradialis 3+/3+; patellar 2+; ankles refused assessment. Plantars are downgoing bilaterally. Results - Laboratory Findings CBC and BMP: 02/06/23 05:58 02/06/23 05:58 Abnormal Lab Findings: Abnormal Labs 02/06/23 02/06/23 02/06/23 05:56 05:58 05:58 PT 9.9 L Carbon Dioxide 21 L BUN 31 H Glucose 136 H POC Glucose (mg/dL) 138 H Creatine Kinase 141 H Assessment and Plan Assessment: This is a 67-year-old woman who woke up at midnight and felt she was unsteady walk-in and leads with the left. Last normal was about 10:30 PM on 02/05/2023. She denies of any fever, ringing in the ears, any dizziness. Acute Unsteady when walking and leaning towards the left: Rule out acute ischemic stroke. History of palpitation Hypertension Diabetes mellitus is newly diagnosed and she stated the recent hemoglobin A1c was 7.2 Hypercholesterolemia Plan: I ordered MRI of the brain with and without. If MR the brain is negative then we'll pursue MRI the cervical spine I ordered 2-D echo, lipid panel, TSH. Patient was given aspirin 325 once in the ED. I started the patient on aspirin 81 mg daily. Patient is on Lipitor 5 mg daily at bedtime home dose but if she has acute stroke will go up on the dose. Patient was given Valium 5 mg once, meclizine 25 mg once in the ED. I consulted cardiology team for patient's palpitation to rule out any underlying A. fib or flutter. I consulted PT and OT Neuro checks Cardiac monitoring We'll defer the rest of the medical management to primary team For DVT prophylaxis I started the patient on subcu heparin 5000 units every 12 hours The plan is discussed with patient, who is at bedside and her nurse. Thank you for the consultation. Time with Patient: Greater than 30
[2023-02-06] MEDS ORDERED: MECLIZINE 25 MG TAB PO PRN (17:01)
[2023-02-06] MEDS ORDERED: DEXTROSE 50% SYRINGE 50 ML IVP PRN ×2 (19:08)
--- NOTE | 2023-02-06 19:08 | P.HPIM ---
History of Present Illness H&P Date: 02/06/23 This is a pleasant 67-year-old female who presented to the emergency department with with reports of unsteady gait and ataxia. Patient follows with Dr. Vaibhav Singh in the outpatient setting with a past medical history of hyperlipidemia, hypertension, former smoker, history of panic disorder in the past, drinks one beer daily and denies any other illicit drug use. In the ER patient underwent workup including CT of the brain which showed no acute intracranial pathology, and recommending MRI if clinical condition persists, CT angios shows an unremarkable study. Patient's labs reviewed showing normal CBC, sodium 137, potassium 3.8, BUN 31 and creatinine 0.96, blood sugar slightly mikel vated at 136, liver functions within normal limits, creatinine kinase 141, troponin was negative, serum alcohol is less than 10. Patient reports this all started approximately midnight and was noticing an unsteady gait. reports the same. Patient denies any recent falls, injuries, no new medication changes and last known normal was around 10:30 PM. Patient denies dizziness or lightheadedness and strength of upper and lower extremities show left side faint weakness of 45 on upper extremity and bilateral lower extremities are 5/5. No other neurological deficits noted. Patient was admitted with neurology on consultation. Review Of Systems: Constitutional: No fever, no chills, no night sweats. No weight change. No weakness, fatigue or lethargy. No daytime sleepiness. EENT: No headache. No blurred vision or double vision, no loss of vision. No loss of Hearing, no ringing in the ears, no dizziness. No nasal drainage or congestion. No epistaxis. No sore throat. Lungs: No shortness of breath, cough, no sputum production. No wheezing. Cardiovascular: No chest pain, no lower extremity edema. No palpitations. No paroxysmal nocturnal dyspnea. No orthopnea. No lightheadedness or dizziness. No syncopal episodes. Abdominal: No abdominal pain. No nausea, vomiting. No diarrhea. No constipation. No bloody or tarry stools.. No loss of appetite. Genitourinary: No dysuria, increased frequency, urgency. No urinary retention. Musculoskeletal: No myalgias. No muscle weakness, no gait dysfunction, no frequent falls. No back pain. No neck pain. Reports unsteady gait and leaning towards the left when walking Integumentary: No wounds, no lesions. No rash or pruritus. No unusual bruising. No change in hair or nails. Neurologic: No aphasia. No facial droop. No change in mentation. No head injury. No headache. No paralysis. No paresthesia. Psychiatric: No depression. No anxiety. No mood swings. Endocrine: No abnormal blood sugars. No weight change. No excessive sweating or thirst. No cold intolerance. PHYSICAL EXAMINATION: GENERAL: The patient is alert and oriented x4, Well developed, well nourished. Obese HEENT: Pupils are round and equally reacting to light. EOMI. no scleral icterus. No conjunctival pallor. Normocephalic, atraumatic. No pharyngeal erythema. No thyromegaly. CARDIOVASCULAR: S1 and S2 muffled PULMONARY: diminished breath sounds bilaterally with no wheezing or rhonchi noted. ABDOMEN: soft. Non-tender on exam. obese. non-distended, normoactive bowel sounds. No palpable organomegaly. MUSCULOSKELETAL: No joint swelling or deformity. EXTREMITIES: No cyanosis, clubbing, or pedal edema. NEUROLOGICAL: Gross neurological examination did not reveal any focal deficits. Diffuse weakness potato pancake frier strength of upper lower extremities was left 45, right 55, bilateral lower extremities 55 on strength SKIN: No rashes. Assessment: Ataxia, rule out acute CVA History of hyperlipidemia History of hypertension Former smoker Daily alcohol use History of recent new onset diabetes diagnosis Obesity with a BMI of 34.0 GI prophylaxis DVT prophylaxis Full code Plan: Recommend to continue with current medications and management and neurology consulted and following. CT was negative of any acute process although patient continues to be symptomatic left side leaning while walking. Patient denies any lightheadedness, dizziness, facial droop, slurring of speech CTA was unremarkable and 2-D echo with cardiology was also consulted to rule out an arrhythmia Patient newly and also diabetes maintained on metformin and will add Accu-Cheks with as needed sliding scale Recommend follow-up labs in the a.m. vitamin B12 level was added as well as TSH PT/OT to evaluate An MRI is ordered and pending The impression and plan of care has been dictated by Apple Leonard, nurse practitioner as directed. Dr. Yoana MD I have performed a history and examination and MDM of this patient, discussed the same with the dictator, and agree with the dictator's assessment and plan as written ,documented as a scribe. Based on total visit time, I have performed more than 50% of the visit. Any additional findings or plans will be noted. Past Medical History Past Medical History: Hyperlipidemia, Hypertension Additional Past Medical History / Comment(s): INJURY TO LT KNEE History of Any Multi-Drug Resistant Organisms: None Reported Past Surgical History: Appendectomy, Orthopedic Surgery Additional Past Surgical History / Comment(s): SURG RT HAND. LT KNEE- ARTHROSCOPIC ; LT ROTATOR CUFF REPAIR , COLONOSCOPY. Past Anesthesia/Blood Transfusion Reactions: Previous Problems w/ Anesthesia, Postoperative Nausea & Vomiting (PONV) Past Psychological History: Panic Disorder Smoking Status: Former smoker Past Alcohol Use History: Daily Past Drug Use History: None Reported - Past Family History Sister(s) Family Medical History: Cancer, Deep Vein Thrombosis (DVT), Myocardial Infarction ([place]) Brother(s) Family Medical History: Cancer Medications and Allergies Home Medications Medication Instructions Recorded Confirmed Type Atorvastatin [Lipitor] 5 mg PO HS 08/28/16 02/06/23 History amLODIPine [Norvasc] 2.5 mg PO DAILY 07/24/21 02/06/23 History Calcium Carbonate 500 mg PO DAILY 02/06/23 02/06/23 History Cholecalciferol (Vitamin D3) 75 mcg PO DAILY 02/06/23 02/06/23 History [Vitamin D3 (3000 Iu)] Garlic 1,000 mg PO DAILY 02/06/23 02/06/23 History metFORMIN HCL 500 mg PO HS 02/06/23 02/06/23 History Allergies Allergy/AdvReac Type Severity Reaction Status Date / Time hydromorphone AdvReac Chest Verified 02/06/23 10:14 Pain/JOHNY Physical Exam Vitals: Vital Signs Temp Pulse Resp BP Pulse Ox 02/06/23 11:01 62 20 117/60 95 02/06/23 09:12 73 20 139/91 98 02/06/23 06:20 97.9 F 71 18 137/61 98 02/06/23 06:05 98 F 79 18 121/77 97 02/06/23 05:50 97.8 F 81 16 123/84 96 02/06/23 05:38 96.7 F L 66 18 160/79 98 Intake and Output 02/05/23 02/06/23 02/06/23 22:59 06:59 14:59 Other: Weight 81.647 kg Results CBC & Chem 7: 02/06/23 05:58 02/06/23 05:58 Labs: Abnormal Lab Results - Last 24 Hours (Table) 02/06/23 02/06/23 02/06/23 Range/Units 05:56 05:58 05:58 PT 9.9 L (10.0-12.5) sec Carbon Dioxide 21 L (22-30) mmol/L BUN 31 H (7-17) mg/dL Glucose 136 H (74-99) mg/dL POC Glucose (mg/dL) 138 H (70-110) mg/dL Creatine Kinase 141 H (30-135) U/L Thrombosis Risk Factor Assmnt - DVT/VTE Prophylaxis DVT/VTE Prophylaxis: Pharmacologic Prophylaxis ordered Assessment and Plan Time with Patient: Greater than 30
[2023-02-06 20:18] LABS: Glucose,Whole Blood 315 mg/dL (70-110)
[2023-02-06] MEDS: ATORVASTATIN 10 MG TAB PO SCH (20:18)
[2023-02-06] MEDS: metFORMIN 500 MG TAB PO SCH (20:18)
[2023-02-06] MEDS: HEPARIN SODIUM,PORCINE 5,000 UNIT/ML 1 ML VIAL SQ SCH (20:18)
[2023-02-06] MEDS: INSULIN ASPART (NovoLOG) 100 UNIT/ML VIAL SQ SCH (21:02)
[2023-02-07 05:46] LABS: Appearance,Urine Clear (Clear); Bilirubin,Urine Negative (Negative); Blood,Urine Small (Negative); Color,Urine Light Yellow; Glucose,Urine (UA) Trace (Negative); Ketones,Urine Negative (Negative); Leukocyte Esterase,Urine Negative (Negative); Mucus,Urine Rare /hpf; Nitrite,Urine Negative (Negative); PH, Urine 6.5 (5.0-8.0); Protein,Urine Negative (Negative); RBC,Urine 13 /hpf (0-5); Specific Gravity,Urine 1.027 (1.001-1.035); Squamous Epithelial Cell,Urine 2 /hpf (0-4); Urobilinogen,Urine <2.0 mg/dL (<2.0); WBC,Urine 2 /hpf (0-5)
[2023-02-07 05:48] LABS: Glucose,Whole Blood 143 mg/dL (70-110)
[2023-02-07] MEDS: INSULIN ASPART (NovoLOG) 100 UNIT/ML VIAL SQ SCH ×4 (05:49→20:49)
[2023-02-07 05:57] LABS: Amphetamine Screen,Urine Not Detected (NotDetected); Barbiturate Screen,Urine Not Detected (NotDetected); Benzodiazepines Screen,Urine Detected (NotDetected); Cocaine Screen,Urine Not Detected (NotDetected); Methadone Screen, Urine Not Detected (NotDetected); Opiate Screen,Urine Not Detected (NotDetected); Oxycodone Screen, Urine Not Detected (NotDetected); Phencyclidine Screen,Urine Not Detected (NotDetected); Tricyclic Antidepressant,Urine Not Detected (NotDetected); Urn Cannabinoid Scrn Not Detected (NotDetected)
[2023-02-07] MEDS: HEPARIN SODIUM,PORCINE 5,000 UNIT/ML 1 ML VIAL SQ SCH ×2 (08:20→20:18)
[2023-02-07] MEDS: amLODIPine 5 MG TAB PO SCH (08:20)
[2023-02-07] MEDS ORDERED: amLODIPine 2.5 MG TAB PO SCH (09:00)
[2023-02-07] MEDS ORDERED: ASPIRIN 81 MG PO SCH (09:00)
[2023-02-07 09:11] LABS: BUN/Creat Ratio 22.29 Ratio (12.00-20.00); Blood Urea Nitrogen 31.2 mg/dL (9.0-27.0); Calcium 9.4 mg/dL (8.7-10.3); Carbon Dioxide 21.5 mmol/L (21.6-31.8); Chloride 104 mmol/L (96-109); Chol/HDL Ratio 2.43 Ratio; Glucose 134 mg/dL (70-110); LDL Cholesterol,Calculated 68.8 mg/dL (0.0-131.0); Potassium 4.1 mmol/L (3.5-5.5); Sodium 139 mmol/L (135-145); VLDL Calculation 19.46 mg/dL (5.00-40.00)
--- NOTE | 2023-02-07 09:27 | P.CRDCN ---
History of Present Illness History of present illness: HISTORY OF PRESENT ILLNESS: This is a 67-year-old female with a past medical history significant for recently diagnosed diabetes, hypertension, and hyperlipidemia. Patient does not follow with a bleacher pulp. We have been asked to see the patient in consultation for palpitations. Patient examined at the bedside. Patient presented to the hospital due to an unsteady gait. She states at home anytime she is walking she leans to the left. She denies having any falls. She denied any chest pain or pressure. She denied any shortness of breath. She does report occasional palpitations that she has every couple of months. She states that her palpitations usually last for 3 or 4 minutes and then go away. She denies having any dizziness or lightheadedness. Denies any syncopal episodes. She states that she had a heart monitor placed years ago due to palpitations which did not show any arrhythmias. She is a nonsmoker. She reports that she was diagnosed with diabetes approximately one week ago by Dr. Singh. * EKG reveals sinus mechanism with no signs of acute ischemia * CT brain: No acute intracranial pathology. * Current home cardiac medications include atorvastatin 5 mg at night, amlodipine 2.5 mg daily * No previous echocardiogram or cardiac catheterization available for review in EMR REVIEW OF SYSTEMS: At the time of my exam: CONSTITUTIONAL: Denies fever or chills. HEENT: Denies blurred vision, vision changes, or eye pain. Denies hemoptysis CARDIOVASCULAR: Denies chest pain. Denies orthopnea. Denies PND. Denies palpitations RESPIRATORY: Denies shortness of breath. GASTROINTESTINAL: Denies abdominal pain. Denies nausea or vomiting. HEMATOLOGIC: Denies bleeding disorders. GENITOURINARY: Denies any blood in urine. SKIN: Denies pruitis. Denies rash. PHYSICAL EXAM: VITAL SIGNS: Reviewed. GENERAL: Well-developed in no acute distress. HEENT: Head is normocephalic. Pupils are equal, round. Sclerae anicteric. Mucous membranes of the mouth are moist. Neck supple. No JVD or thyromegaly LUNGS: Respirations even and unlabored. Lungs essentially clear to auscultation bilaterally. HEART: Regular rate and rhythm. S1 and S2 heard. Systolic murmur noted. ABDOMEN: Soft. Nondistended. Nontender. EXTREMITIES: Normal range of motion. No clubbing or cyanosis. Peripheral pulses intact. No lower extremity edema NEUROLOGIC: Awake and alert. Oriented x 3. ASSESSMENT: Unsteady gait, patient reports leaning towards left side when ambulating Palpitations Hypertension Hyperlipidemia Newly diagnosed diabetes PLAN: Obtain 2-D echo to assess cardiac structure and function Resume home cardiac medications Continue telemetry monitoring to assess for any arrhythmias. Telemetry tracings thus far reveals sinus mechanism. Patient to receive 30 day event monitor from [facility] office upon discharge. Please inform cardiology team of patient discharge so appointment can be made in the office. Patient to follow-up in the office in 3 weeks Nurse practitioner note has been reviewed by physician. Signing provider agrees with the documented findings, assessment, and plan of care. Past Medical History Past Medical History: Hyperlipidemia, Hypertension Additional Past Medical History / Comment(s): INJURY TO LT KNEE History of Any Multi-Drug Resistant Organisms: None Reported Past Surgical History: Appendectomy, Orthopedic Surgery Additional Past Surgical History / Comment(s): SURG RT HAND. LT KNEE- ARTHROSCOPIC ; LT ROTATOR CUFF REPAIR , COLONOSCOPY. Past Anesthesia/Blood Transfusion Reactions: Previous Problems w/ Anesthesia, Postoperative Nausea & Vomiting (PONV) Past Psychological History: Panic Disorder Smoking Status: Former smoker Past Alcohol Use History: Daily Past Drug Use History: None Reported - Past Family History Sister(s) Family Medical History: Cancer, Deep Vein Thrombosis (DVT), Myocardial Infarction ([place]) Brother(s) Family Medical History: Cancer Medications and Allergies Home Medications Medication Instructions Recorded Confirmed Type Atorvastatin [Lipitor] 5 mg PO HS 08/28/16 02/06/23 History amLODIPine [Norvasc] 2.5 mg PO DAILY 07/24/21 02/06/23 History Calcium Carbonate 500 mg PO DAILY 02/06/23 02/06/23 History Cholecalciferol (Vitamin D3) 75 mcg PO DAILY 02/06/23 02/06/23 History [Vitamin D3 (3000 Iu)] Garlic 1,000 mg PO DAILY 02/06/23 02/06/23 History metFORMIN HCL 500 mg PO HS 02/06/23 02/06/23 History Allergies Allergy/AdvReac Type Severity Reaction Status Date / Time hydromorphone AdvReac Chest Verified 02/06/23 10:14 Pain/JOHNY Physical Exam Vitals: Vital Signs Temp Pulse Pulse Resp BP BP Pulse Ox 02/07/23 02:00 97.5 F L 52 L 15 117/58 97 02/06/23 19:06 97.7 F 65 15 127/71 95 02/06/23 15:38 65 20 132/73 94 L 02/06/23 15:00 97.7 F 64 17 155/69 95 02/06/23 13:09 68 20 140/75 95 02/06/23 11:01 62 20 117/60 95 02/06/23 09:12 73 20 139/91 98 Intake and Output 02/06/23 02/07/23 02/07/23 22:59 06:59 14:59 Other: Voiding Method Toilet # Voids 1 1 Weight 81.647 kg Results 02/06/23 05:58 02/07/23 04:07 Current Medications Generic Name Dose Route Start Last Admin Trade Name Freq PRN Reason Stop Dose Admin Amlodipine Besylate 5 mg 02/07/23 09:00 Amlodipine 5 Mg Tab PO DAILY MITALI Aspirin 81 mg 02/07/23 09:00 Aspirin 81 Mg PO DAILY MITALI Atorvastatin Calcium 5 mg 02/06/23 21:00 02/06/23 20:18 Atorvastatin 10 Mg Tab PO 5 mg HS MITALI Administration Dextrose/Water 25 ml 02/06/23 19:08 Dextrose 50% Syringe 50 Ml IVP PER PROTOCOL PRN Hypoglycemia Protocol Dextrose/Water 50 ml 02/06/23 19:08 Dextrose 50% Syringe 50 Ml IVP PER PROTOCOL PRN Hypoglycemia Protocol Heparin Sodium (Porcine) 5,000 unit 02/06/23 21:00 02/06/23 20:18 Heparin Sodium,Porcine 5,000 Unit/Ml 1 Ml Vial SQ 5,000 unit Q12HR MITALI Administration Insulin Aspart 0 unit 02/06/23 21:00 02/07/23 05:49 Insulin Aspart (Novolog) 100 Unit/Ml Vial SQ Not Given ACHS MITALI Protocol Meclizine HCl 25 mg 02/06/23 17:01 Meclizine 25 Mg Tab PO QID PRN Vertigo Metformin HCl 500 mg 02/06/23 21:00 02/06/23 20:18 Metformin 500 Mg Tab PO 500 mg HS MITALI Administration Naloxone HCl 0.2 mg 02/06/23 10:04 Naloxone 0.4 Mg/Ml 1 Ml Vial IV Q2M PRN Opioid Reversal Intake and Output 02/06/23 02/07/23 02/07/23 22:59 06:59 14:59 Other: Voiding Method Toilet # Voids 1 1 Weight 81.647 kg 02/06/23 05:58 02/06/23 05:58
[2023-02-07 09:40] LABS: Basophils # (A) 0.01 X 10*3/uL (0.00-0.10); Basophils % (A) 0.1 %; Eosinophils # (A) 0 X 10*3/uL (0.04-0.35); Eosinophils % (A) 0 %; HCT 37.1 % (37.2-46.3); HGB 12.3 g/dL (12.0-15.0); Lymphocytes # (A) 0.92 X 10*3/uL (0.90-5.00); Lymphocytes % (A) 10.6 %; MCH 31.1 pg (27.0-32.0); MCHC 33.2 g/dL (32.0-37.0); MCV 93.9 FL (80.0-97.0); Mean Platelet Volume 9.9 FL (9.5-12.2); Monocytes # (A) 0.35 X 10*3/uL (0.20-1.00); NRBC Per 100 WBC 0 X 10*3/uL (0.00-0.01); Neutrophils # (A) 7.38 X 10*3/uL (1.80-7.70); Neutrophils % (A) 84.8 %; Platelet Count 277 X 10*3/uL (140-440); RBC 3.95 X 10*6/uL (4.10-5.20); RDW 12.9 % (11.5-14.5)
--- NOTE | 2023-02-07 10:07 | CA ---
Transthoracic Echo Report Name: Tiffany Olivas Age: 67 Gender: F : 1955 Exam Date: 02/07/2023 08:06 Exam Location: [facility] Ht (in): 61 Wt (lb): 180 Ordering Physician: John Walker MD Attending/Referring Phys: Sand Mixer Machine Racheal Draper [facility] Procedure CPT: Indications: stroke Cardiac Hx: Technical Quality: Technically difficult study Contrast 1: Total Dose (mL): Contrast 2: Total Dose (mL): MEASUREMENTS (Male / Female) Normal Values 2D ECHO LV Diastolic Diameter PLAX 4.6 cm 4.2 - 5.9 / 3.9 - 5.3 cm LV Systolic Diameter PLAX 2.6 cm IVS Diastolic Thickness 1.0 cm 0.6 - 1.0 / 0.6 - 0.9 cm LVPW Diastolic Thickness 0.8 cm 0.6 - 1.0 / 0.6 - 0.9 cm LV Relative Wall Thickness 0.4 LVOT Diameter 2.0 cm Ascending Aorta Diameter 2.9 cm M-MODE Aortic Root Diameter MM 2.5 cm LA Systolic Diameter MM 4.0 cm LA Ao Ratio MM 1.6 AV Cusp Separation MM 1.8 cm DOPPLER AV Peak Velocity 124.9 cm/s AV Peak Gradient 6.2 mmHg AV Mean Velocity 83.9 cm/s AV Mean Gradient 3.2 mmHg AV Velocity Time Integral 30.9 cm LVOT Peak Velocity 128.1 cm/s LVOT Peak Gradient 6.6 mmHg LVOT Velocity Time Integral 30.5 cm LVOT Stroke Volume 91.1 cm??? LVOT Stroke Volume Index 50.4 ml/m??? LVOT Cardiac Index 2429.8 cm???/min???m??? AV Area Cont Eq vti 2.9 cm??? AV Area Cont Eq pk 3.1 cm??? Mitral E Point Velocity 64.0 cm/s Mitral A Point Velocity 84.7 cm/s Mitral E to A Ratio 0.8 MV Deceleration Time 214.5 ms LV E' Lateral Velocity 7.8 cm/s Mitral E to LV E' Lateral Ratio 8.2 LV E' Septal Velocity 6.6 cm/s Mitral E to LV E' Septal Ratio 9.7 TR Peak Velocity 161.1 cm/s TR Peak Gradient 10.4 mmHg Right Atrial Pressure 3.0 mmHg Pulmonary Artery Systolic Pressu 13.4 mmHg Right Ventricular Systolic Press 13.4 mmHg FINDINGS Left Ventricle Left ventricular wall thickness normal. Left ventricular cavity size normal. Normal left ventricular systolic function with no obvious regional wall motion abnormalities. Left ventricular ejection fraction is estimated at 55-60%. Right Ventricle Normal right ventricular size. Right Atrium Normal right atrial size. Left Atrium Normal left atrial size. Mitral Valve Structurally normal mitral valve. Mild mitral regurgitation. Aortic Valve Trileaflet aortic valve. No aortic valve stenosis or regurgitation. Tricuspid Valve Structurally normal tricuspid valve. Mild tricuspid regurgitation. Pulmonic Valve Pulmonic valve not well visualized. Trace pulmonic regurgitation. Pericardium No pericardial effusion. Aorta Normal size aortic root and proximal ascending aorta. CONCLUSIONS 1. Normal left ventricular size and systolic function 2. Mild mitral and tricuspid regurgitation with no evidence of pulmonary hypertension Previewed by: Dr. Saleem Rose MD (Electronically Signed) Final Date: 07 February 2023 10:06
[2023-02-07 12:14] LABS: Glucose,Whole Blood 110 mg/dL (70-110)
--- NOTE | 2023-02-07 12:55 | MR ---
EXAMINATION TYPE: MR brain wo/w con DATE OF EXAM: 02/07/2023 11:43 AM CLINICAL INDICATION:Female, 67 years old with history of unsteady gait; PHH, Unsteady gait, intractab le ataxia. COMPARISON: CT brain 02/06/2023. TECHNIQUE: Multi planar, multi sequence imaging was performed through the brain including: T1, T2, In version recovery, susceptibility weighted imaging and gradient echo imaging and Diffusion weighted im aging. The patient was then given intravenous contrast and multi planar, T1 fat-saturation images wer e obtained. IV Contrast: 8 cc Gadavist FINDINGS: The molina-white junctions, ventricular system, basal cisterns appear unremarkable. Diffusion-weighted imaging shows no evidence of restricted diffusion to suggest acute/subacute infarct. Intracranial ar terial flow voids are maintained. Midline structures show no abnormality. Scattered foci of high T2 s ignal intensity are seen within the periventricular white matter. The susceptibility weighted images do not reveal any evidence for micro-hemorrhage. After administration of gadolinium, no abnormal enha ncement is seen. The bone marrow signal is within normal limits. Paranasal sinuses and mastoid air cells: No significant paranasal sinus disease. Visualized orbits: Bilateral aphakia. IMPRESSION: 1. No evidence of intracranial mass, acute/subacute infarct, or abnormal enhancement. 2. Nonspecific white matter changes, likely related to small vessel ischemic disease.
[2023-02-07 17:30] LABS: Glucose,Whole Blood 134 mg/dL (70-110)
--- NOTE | 2023-02-07 17:43 | P.PN ---
Subjective Progress Note Date: 02/07/23 I am following-up with patient and she feels mildly better today compared to initial presentation. She continues to denies any dizziness, visual disturbance. She did state she had back pain. Objective - Vital Signs Vital signs: Vital Signs Temp 97.8 F 02/07/23 15:00 Pulse 60 02/07/23 15:00 Resp 19 02/07/23 15:20 BP 135/73 02/07/23 15:00 Pulse Ox 97 02/07/23 15:00 FiO2 Intake & Output 02/06/23 02/07/23 02/07/23 18:59 06:59 18:59 Intake Total 240 Balance 240 Weight 81.647 kg Intake: Oral 240 Other: Voiding Method Toilet Toilet # Voids 1 2 - Exam GENERAL: The patient is lying in bed and is not in acute distress. NEUROLOGICAL: Higher mental function: The patient is awake, alert, oriented to self, place and time. Patient is following commands. No aphasia and no neglect. Cranial nerves: The pupils are round, equal and reactive to light. Visual montoya are full to confrontation throughout. Extraocular movement is intact no nystagmus is noted. Facial sensation is normal to touch throughout. The facial strength is normal throughout. Hearing is normal bilaterally to hand rub. Tongue is midline and moved [id number] without any difficulty. No dysarthria is noted. Shoulder shrug is normal bilaterally. Motor: Unsteady walking and leaning towards the left. I had help with the nurse assist her walk since she she was leaning towards the left but mildly better today compared to yesterday. The strength is 5 over 5 throughout. Normal tone and bulk. Cerebellum: Normal finger to nose heel to chan bilaterally. Sensation: Sensation is normal to touch throughout. Reflexes (right/left): Biceps 2+/2+; triceps 2+/2-3+; brachioradialis 3+/3+; patellar 2+; ankles refused assessment. Plantars are downgoing bilaterally. Some other workup during this hospital visit consisted of: CBC with differential is unremarkable. Sodium is 137, initial serum glucose is 136, calcium is 9.6, CK levels 141. B12 was 483 TSH is 0.236 and the free T4 is 1.[address] of the head is reported as no acute intracranial pathology. If persistent clinical concern for acute stroke, MRI could Further evaluate. I personally reviewed the CT of the head and I agree there is no acute or subacute ischemia and there is no bleed. CT angiography of the head and neck was reported as unremarkable CT and dry from the neck and for the CT angiography of the head is reported as no large vessel occlusion, significant stenosis, aneurysm or vascular malformation. EKG is reported as sinus rhythm. Normal EKG. Serum alcohol level was less than 10. 2D echo: It is reported as normal left ventricle size and systolic function. Mild mitral and tricuspid regurgitation with no evidence of pulmonary hypert ension. MRI the brain is reported as no evidence of intracranial mass, acute/subacute infarct or abnormal enhancement. Nonspecific white matter changes, likely related to small vessel ischemic disease. - Labs CBC & Chem 7: 02/07/23 04:07 02/07/23 04:07 Labs: Abnormal Lab Results - Last 24 Hours (Table) 02/06/23 02/07/23 02/07/23 Range/Units 20:16 04:07 04:07 RBC (4.10-5.20) X 10*6/uL Hct (37.2-46.3) % Eosinophils # (0.04-0.35) X 10*3/uL Carbon Dioxide 21.5 L (21.6-31.8) mmol/L Anion Gap 13.50 H (4.00-12.00) mmol/L BUN 31.2 H (9.0-27.0) mg/dL Est GFR (CKD-EPI) 41 L (>=60) BUN/Creatinine Ratio 22.29 H (12.00-20.00) Ratio Glucose 134 H (70-110) mg/dL POC Glucose (mg/dL) 315 H (70-110) mg/dL Hemoglobin A1c 6.4 H (<=6.0) % HDL Cholesterol 61.70 H (40.00-60.00) mg/dL TSH 0.236 L (0.350-5.500) UIU/ML Urine Glucose (UA) (Negative) Urine Blood (Negative) Urine RBC (0-5) /hpf Urine Mucus (None) /hpf U Benzodiazepines Scrn (NotDetected) 02/07/23 02/07/23 02/07/23 Range/Units 04:07 05:10 05:10 RBC 3.95 L (4.10-5.20) X 10*6/uL Hct 37.1 L (37.2-46.3) % Eosinophils # 0 L (0.04-0.35) X 10*3/uL Carbon Dioxide (21.6-31.8) mmol/L Anion Gap (4.00-12.00) mmol/L BUN (9.0-27.0) mg/dL Est GFR (CKD-EPI) (>=60) BUN/Creatinine Ratio (12.00-20.00) Ratio Glucose (70-110) mg/dL POC Glucose (mg/dL) (70-110) mg/dL Hemoglobin A1c (<=6.0) % HDL Cholesterol (40.00-60.00) mg/dL TSH (0.350-5.500) UIU/ML Urine Glucose (UA) Trace H (Negative) Urine Blood Small H (Negative) Urine RBC 13 H (0-5) /hpf Urine Mucus Rare H (None) /hpf U Benzodiazepines Scrn Detected H (NotDetected) 02/07/23 02/07/23 Range/Units 05:47 17:29 RBC (4.10-5.20) X 10*6/uL Hct (37.2-46.3) % Eosinophils # (0.04-0.35) X 10*3/uL Carbon Dioxide (21.6-31.8) mmol/L Anion Gap (4.00-12.00) mmol/L BUN (9.0-27.0) mg/dL Est GFR (CKD-EPI) (>=60) BUN/Creatinine Ratio (12.00-20.00) Ratio Glucose (70-110) mg/dL POC Glucose (mg/dL) 143 H 134 H (70-110) mg/dL Hemoglobin A1c (<=6.0) % HDL Cholesterol (40.00-60.00) mg/dL TSH (0.350-5.500) UIU/ML Urine Glucose (UA) (Negative) Urine Blood (Negative) Urine RBC (0-5) /hpf Urine Mucus (None) /hpf U Benzodiazepines Scrn (NotDetected) Assessment and Plan Assessment: This is a 67-year-old woman who woke up at midnight and felt she was unsteady walk-in and leads with the left. Last normal was about 10:30 PM on 02/05/2023. She denies of any fever, ringing in the ears, any dizziness. Acute Unsteady when walking and leaning towards the left: Unsure exactly etiology. MRI the brain is negative for stroke or any enhancement. Rule out any spinal cord lesion leading to this History of palpitation Hypertension Diabetes mellitus is newly diagnosed and she stated the recent hemoglobin A1c was 7.2 Hypercholesterolemia Plan: I ordered MRI of the cervical, thoracic and lumbar to rule out any spinal lesion leading to her unsteady gait. Patient was given aspirin 325 once in the ED. I started the patient on aspirin 81 mg daily initially but since no stroke discontinued it. Cardiology team for patient's palpitation to rule out any underlying A. fib/flu tter. The recommended 30 day event monitor. PT and OT are consulted Neuro checks Cardiac monitoring We'll defer the rest of the medical management to primary team For DVT prophylaxis I started the patient on subcu heparin 5000 units every 12 hours The plan is discussed with patient and her nurse. will continue to follow. Time with Patient: Less than 30
--- NOTE | 2023-02-07 18:02 | P.PN ---
Subjective This is a pleasant 67-year-old female who presented to the emergency department with with reports of unsteady gait and ataxia. Patient follows with Dr. Vaibhav Singh in the outpatient setting with a past medical history of hyperlipidemia, hypertension, former smoker, history of panic disorder in the past, drinks one beer daily and denies any other illicit drug use. In the ER patient underwent workup including CT of the brain which showed no acute intracranial pathology, and recommending MRI if clinical condition persists, CT angios shows an unremarkable study. Patient's labs reviewed showing normal CBC, sodium 137, potassium 3.8, BUN 31 and creatinine 0.96, blood sugar slightly elevated at 136, liver functions within normal limits, creatinine kinase 141, troponin was negative, serum alcohol is less than 10. Patient reports this all started approximately midnight and was noticing an unsteady gait. reports the same. Patient denies any recent falls, injuries, no new medication changes and last known normal was around 10:30 PM. Patient denies dizziness or lightheadedness and strength of upper and lower extremities show left side faint weakness of 45 on upper extremity and bilateral lower extremities are 5/5. No other neurological deficits noted. Patient was admitted with neurology on consultation. 02/07/2023 pt presents with ataxia, pt states her gait is better today although not back to normal yet no other new complaint creatine is 1.4 which is close to baseline of 1.1-1.3 mri of the brain is negative for stroke , so aspirin was dc MRI of the cervical, lumbar and thoracic spine were ordered We'll start patient on normal saline 75 mL/h 18 hours Urine analysis is negative, urine drug screen is positive for benzodiazepines Physical therapist recommended home health care Review of systems CONSTITUTIONAL: No fever, no malaise, no fatigue. HEENT: No recent visual problems or hearing problems. Denied any sore throat. CARDIOVASCULAR: No orthopnea, PND, no palpitations, no syncope. PULMONARY: No shortness of breath, no cough, no hemoptysis. GASTROINTESTINAL: No diarrhea, no nausea, no vomiting, no abdominal pain. Normoactive bowel sounds. Active Medications Generic Name Dose Route Start Last Admin Trade Name Freq PRN Reason Stop Dose Admin Amlodipine Besylate 5 mg 02/07/23 09:00 02/07/23 08:20 Amlodipine 5 Mg Tab PO 5 mg DAILY MITALI Administration Atorvastatin Calcium 5 mg 02/06/23 21:00 02/06/23 20:18 Atorvastatin 10 Mg Tab PO 5 mg HS MITALI Administration Dextrose/Water 25 ml 02/06/23 19:08 Dextrose 50% Syringe 50 Ml IVP PER PROTOCOL PRN Hypoglycemia Protocol Dextrose/Water 50 ml 02/06/23 19:08 Dextrose 50% Syringe 50 Ml IVP PER PROTOCOL PRN Hypoglycemia Protocol Heparin Sodium (Porcine) 5,000 unit 02/06/23 21:00 02/07/23 08:20 Heparin Sodium,Porcine 5,000 Unit/Ml 1 Ml Vial SQ 5,000 unit Q12HR MITALI Administration Sodium Chloride 1,000 mls @ 75 mls/hr 02/07/23 18:00 Saline 0.9% IV 02/08/23 12:01 .[id number] MITALI Insulin Aspart 0 unit 02/06/23 21:00 02/07/23 12:24 Insulin Aspart (Novolog) 100 Unit/Ml Vial SQ Not Given ACHS MITALI Protocol Meclizine HCl 25 mg 02/06/23 17:01 Meclizine 25 Mg Tab PO QID PRN Vertigo Metformin HCl 500 mg 02/06/23 21:00 02/06/23 20:18 Metformin 500 Mg Tab PO 500 mg HS MITALI Administration Naloxone HCl 0.2 mg 02/06/23 10:04 Naloxone 0.4 Mg/Ml 1 Ml Vial IV Q2M PRN Opioid Reversal Objective - Vital Signs Vital signs: Vital Signs Temp 97.7 F 02/07/23 07:00 Pulse 54 L 02/07/23 07:00 Resp 18 02/07/23 08:00 BP 138/66 02/07/23 07:00 Pulse Ox 96 02/07/23 07:00 FiO2 Intake & Output 02/06/23 02/07/23 02/07/23 18:59 06:59 18:59 Weight 81.647 kg Other: Voiding Method Toilet Toilet # Voids 1 - Exam GENERAL: The patient is alert and oriented x3, not in any acute distress. Well developed, well nourished. HEENT: Pupils are round and equally reacting to light. EOMI. No scleral icterus. No conjunctival pallor. Normocephalic, atraumatic. No pharyngeal erythema. No thyromegaly. CARDIOVASCULAR: S1 and S2 present. No murmurs, rubs, or gallops. PULMONARY: Chest is clear to auscultation, no wheezing , no crackles. ABDOMEN: Soft, nontender, nondistended, normoactive bowel sounds. No palpable organomegaly. MUSCULOSKELETAL: No joint swelling or deformity. EXTREMITIES: No cyanosis, clubbing, or pedal edema. NEUROLOGICAL: Gross neurological examination did not reveal any focal deficits. SKIN: No rashes. no petechiae. - Labs CBC & Chem 7: 02/07/23 04:07 02/07/23 04:07 Labs: Abnormal Lab Results - Last 24 Hours (Table) 02/06/23 02/07/23 02/07/23 Range/Units 20:16 04:07 04:07 RBC 3.95 L (4.10-5.20) X 10*6/uL Hct 37.1 L (37.2-46.3) % Eosinophils # 0 L (0.04-0.35) X 10*3/uL Carbon Dioxide 21.5 L (21.6-31.8) mmol/L Anion Gap 13.50 H (4.00-12.00) mmol/L BUN 31.2 H (9.0-27.0) mg/dL Est GFR (CKD-EPI) 41 L (>=60) BUN/Creatinine Ratio 22.29 H (12.00-20.00) Ratio Glucose 134 H (70-110) mg/dL POC Glucose (mg/dL) 315 H (70-110) mg/dL HDL Cholesterol 61.70 H (40.00-60.00) mg/dL TSH 0.236 L (0.350-5.500) UIU/ML Urine Glucose (UA) (Negative) Urine Blood (Negative) Urine RBC (0-5) /hpf Urine Mucus (None) /hpf U Benzodiazepines Scrn (NotDetected) 02/07/23 02/07/23 02/07/23 Range/Units 05:10 05:10 05:47 RBC (4.10-5.20) X 10*6/uL Hct (37.2-46.3) % Eosinophils # (0.04-0.35) X 10*3/uL Carbon Dioxide (21.6-31.8) mmol/L Anion Gap (4.00-12.00) mmol/L BUN (9.0-27.0) mg/dL Est GFR (CKD-EPI) (>=60) BUN/Creatinine Ratio (12.00-20.00) Ratio Glucose (70-110) mg/dL POC Glucose (mg/dL) 143 H (70-110) mg/dL HDL Cholesterol (40.00-60.00) mg/dL TSH (0.350-5.500) UIU/ML Urine Glucose (UA) Trace H (Negative) Urine Blood Small H (Negative) Urine RBC 13 H (0-5) /hpf Urine Mucus Rare H (None) /hpf U Benzodiazepines Scrn Detected H (NotDetected) Assessment and Plan Assessment: Ataxia, rule out acute CVA Chronic kidney disease stage III hyperlipidemia hypertension Former smoker Daily alcohol use History of recent new onset diabetes diagnosis Obesity with a BMI of 34.0 Plan: Patient aspirin was discontinued as MRI of the brain is negative for stroke MRI of the cervical, thoracic and lumbar spine ordered by neurologist service will follow the patient closely Jd Edwards Developer recommending to 30 day event monitor upon discharge Start normal saline 75. Per hour until tomorrow Physical therapy recommended home health care which is ordered Labs and medication were reviewed.. Continue same treatment. Continue with symptomatic treatment. Resume home medication. Monitor labs and vitals. DVT and GI prophylaxis. Further recommendations as per clinical course of the patient DVT prophylaxis: Subcutaneous heparin GI Prophylaxis: Pepcid PT/OT: [facility] Prognosis is guarded
[2023-02-07] MEDS: SODIUM CHLORIDE 0.9% 1,000 ML IV SCH (18:46)
[2023-02-07] MEDS: FAMOTIDINE 20 MG/2 ML VIAL IV SCH ×2 (20:18→23:44)
[2023-02-07] MEDS: ATORVASTATIN 10 MG TAB PO SCH (20:18)
[2023-02-07] MEDS: metFORMIN 500 MG TAB PO SCH (20:18)
[2023-02-07 20:32] LABS: Glucose,Whole Blood 154 mg/dL (70-110)
[2023-02-07 20:58] VITALS: RESP 16
[2023-02-08 06:03] LABS: Glucose,Whole Blood 99 mg/dL (70-110)
[2023-02-08] MEDS: INSULIN ASPART (NovoLOG) 100 UNIT/ML VIAL SQ SCH ×2 (06:04→12:54)
[2023-02-08 07:50] VITALS: BP 145/82; PULSE 52; TEMP 97.9
[2023-02-08] MEDS: SODIUM CHLORIDE 0.9% 1,000 ML IV SCH (08:52)
[2023-02-08] MEDS: amLODIPine 5 MG TAB PO SCH (09:17)
[2023-02-08] MEDS: HEPARIN SODIUM,PORCINE 5,000 UNIT/ML 1 ML VIAL SQ SCH (09:17)
--- NOTE | 2023-02-08 09:33 | P.PN ---
Subjective HISTORY OF PRESENT ILLNESS: This is a 67-year-old female with a past medical history significant for recently diagnosed diabetes, hypertension, and hyperlipidemia. Patient does not follow with a literary writer. We have been asked to see the patient in consultation for palpitations. Patient examined at the bedside. Patient p resented to the hospital due to an unsteady gait. She states at home anytime she is walking she leans to the left. She denies having any falls. She denied any chest pain or pressure. She denied any shortness of breath. She does report occasional palpitations that she has every couple of months. She states that her palpitations usually last for 3 or 4 minutes and then go away. She denies having any dizziness or lightheadedness. Denies any syncopal episodes. She states that she had a heart monitor placed years ago due to palpitations which did not show any arrhythmias. She is a nonsmoker. She reports that she was diagnosed with diabetes approximately one week ago by Dr. Singh. * EKG reveals sinus mechanism with no signs of acute ischemia * CT brain: No acute intracranial pathology. * Current home cardiac medications include atorvastatin 5 mg at night, amlodipine 2.5 mg daily * No previous echocardiogram or cardiac catheterization available for review in EMR 02/08/2023 Patient examined this morning at the bedside. Patient denies chest pain or pressure. Denies SOB. His vital signs are stable. Telemetry reveals sinus mechanism with no signs of arrhythmias. Echocardiogram completed revealing ejection fraction 55-60%, mild mitral regurgitation, and mild tricuspid regurgitation. PHYSICAL EXAM: VITAL SIGNS: Reviewed. GENERAL: Well-developed in no acute distress. HEENT: Head is normocephalic. Pupils are equal, round. Sclerae anicteric. Mucous membranes of the mouth are moist. Neck supple. No JVD or thyromegaly LUNGS: Respirations even and unlabored. Lungs essentially clear to auscultation bilaterally. HEART: Regular rate and rhythm. S1 and S2 heard. Systolic murmur noted. ABDOMEN: Soft. Nondistended. Nontender. EXTREMITIES: Normal range of motion. No clubbing or cyanosis. Peripheral pulses intact. No lower extremity edema NEUROLOGIC: Awake and alert. Oriented x 3. ASSESSMENT: Unsteady gait, patient reports leaning towards left side when ambulating Palpitations Hypertension Hyperlipidemia Newly diagnosed diabetes PLAN: Continue current cardiac medications Patient scheduled to receive event monitor at cardiology office on Friday Patient is stable for discharge home today from a cardiac standpoint She is to follow up on an outpatient basis with Dr. Rose Nurse practitioner note has been reviewed by physician. Signing provider agrees with the documented findings, assessment, and plan of care. Objective - Vital Signs Vital signs: Vital Signs Temp 97.9 F 02/08/23 07:00 Pulse 52 L 02/08/23 07:00 Resp 16 02/08/23 07:00 BP 145/82 02/08/23 07:00 Pulse Ox 97 02/08/23 07:00 FiO2 Intake & Output 02/07/23 02/08/23 02/08/23 18:59 06:59 18:59 Intake Total 240 200 Balance 240 200 Intake: Oral 240 200 Other: Voiding Method Toilet Toilet # Voids 2 1 - Labs CBC & Chem 7: 02/07/23 04:07 02/07/23 04:07 Labs: Abnormal Lab Results - Last 24 Hours (Table) 02/07/23 02/07/23 02/07/23 Range/Units 04:07 04:07 04:07 RBC 3.95 L (4.10-5.20) X 10*6/uL Hct 37.1 L (37.2-46.3) % Eosinophils # 0 L (0.04-0.35) X 10*3/uL Carbon Dioxide 21.5 L (21.6-31.8) mmol/L Anion Gap 13.50 H (4.00-12.00) mmol/L BUN 31.2 H (9.0-27.0) mg/dL Est GFR (CKD-EPI) 41 L (>=60) BUN/Creatinine Ratio 22.29 H (12.00-20.00) Ratio Glucose 134 H (70-110) mg/dL POC Glucose (mg/dL) (70-110) mg/dL Hemoglobin A1c 6.4 H (<=6.0) % HDL Cholesterol 61.70 H (40.00-60.00) mg/dL TSH 0.236 L (0.350-5.500) UIU/ML 02/07/23 02/07/23 Range/Units 17:29 20:30 RBC (4.10-5.20) X 10*6/uL Hct (37.2-46.3) % Eosinophils # (0.04-0.35) X 10*3/uL Carbon Dioxide (21.6-31.8) mmol/L Anion Gap (4.00-12.00) mmol/L BUN (9.0-27.0) mg/dL Est GFR (CKD-EPI) (>=60) BUN/Creatinine Ratio (12.00-20.00) Ratio Glucose (70-110) mg/dL POC Glucose (mg/dL) 134 H 154 H (70-110) mg/dL Hemoglobin A1c (<=6.0) % HDL Cholesterol (40.00-60.00) mg/dL TSH (0.350-5.500) UIU/ML
[2023-02-08 11:13] LABS: BUN/Creat Ratio 25.75 Ratio (12.00-20.00); Blood Urea Nitrogen 30.9 mg/dL (9.0-27.0); Calcium 8.9 mg/dL (8.7-10.3); Carbon Dioxide 22.2 mmol/L (21.6-31.8); Chloride 108 mmol/L (96-109); Glucose 96 mg/dL (70-110); Potassium 4.2 mmol/L (3.5-5.5); Sodium 141 mmol/L (135-145)
[2023-02-08 11:29] LABS: Glucose,Whole Blood 83 mg/dL (70-110)
--- NOTE | 2023-02-08 13:02 | P.PN ---
Subjective Progress Note Date: 02/08/23 I am following-up with patient and she feels she is drastically better, walking much better. The is at bedside and did agree with her. Objective - Vital Signs Vital signs: Vital Signs Temp 97.9 F 02/08/23 07:00 Pulse 52 L 02/08/23 07:00 Resp 16 02/08/23 07:00 BP 145/82 02/08/23 07:00 Pulse Ox 97 02/08/23 07:00 FiO2 Intake & Output 02/07/23 02/08/23 02/08/23 18:59 06:59 18:59 Intake Total 240 200 Balance 240 200 Intake: Oral 240 200 Other: Voiding Method Toilet Toilet # Voids 2 1 - Exam GENERAL: The patient is lying in bed and is not in acute distress. NEUROLOGICAL: Higher mental function: The patient is awake, alert, oriented to self, place and time. Patient is following commands. No aphasia and no neglect. Cranial nerves: The pupils are round, equal and reactive to light. Visual montoya are full to confrontation throughout. Extraocular movement is intact no nystagmus is noted. Facial sensation is normal to touch throughout. The facial strength is normal throughout. Hearing is normal bilaterally to hand rub. Tongue is midline and moved [id number] without any difficulty. No dysarthria is noted. Shoulder shrug is normal bilaterally. Motor: Gait is walking on her own without any support and not leaning toward one side or the other and is more steady today.The strength is 5 over 5 throughout. Normal tone and bulk. Cerebellum: Normal finger to nose heel to chan bilaterally. Sensation: Sensation is normal to touch throughout. Reflexes (right/left): Biceps 2+/2+; triceps 2+/2+; brachioradialis 3+/3+; patellar 2+; ankles refused assessment. Plantars are downgoing bilaterally. Some other workup during this hospital visit consisted of: CBC with differential is unremarkable. Sodium is 137, initial serum glucose is 136, calcium is 9.6, CK levels 141. B12 was 483 TSH is 0.236 and the free T4 is 1.[address] of the head is reported as no acute intracranial pathology. If persistent clinical concern for acute stroke, MRI could Further evaluate. I personally reviewed the CT of the head and I agree there is no acute or subacute ischemia and there is no bleed. CT angiography of the head and neck was reported as unremarkable CT and dry from the neck and for the CT angiography of the head is reported as no large vessel occlusion, significant stenosis, aneurysm or vascular malformation. EKG is reported as sinus rhythm. Normal EKG. Serum alcohol level was less than 10. 2D echo: It is reported as normal left ventricle size and systolic function. Mi ld mitral and tricuspid regurgitation with no evidence of pulmonary hypertension. MRI the brain is reported as no evidence of intracranial mass, acute/subacute infarct or abnormal enhancement. Nonspecific white matter changes, likely related to small vessel ischemic disease. - Labs CBC & Chem 7: 02/07/23 04:07 02/08/23 04:21 Labs: Abnormal Lab Results - Last 24 Hours (Table) 02/07/23 02/07/23 02/07/23 Range/Units 04:07 17:29 20:30 BUN (9.0-27.0) mg/dL Est GFR (CKD-EPI) (>=60) BUN/Creatinine Ratio (12.00-20.00) Ratio POC Glucose (mg/dL) 134 H 154 H (70-110) mg/dL Hemoglobin A1c 6.4 H (<=6.0) % 02/08/23 Range/Units 04:21 BUN 30.9 H (9.0-27.0) mg/dL Est GFR (CKD-EPI) 49 L (>=60) BUN/Creatinine Ratio 25.75 H (12.00-20.00) Ratio POC Glucose (mg/dL) (70-110) mg/dL Hemoglobin A1c (<=6.0) % Assessment and Plan Assessment: This is a 67-year-old woman who woke up at midnight and felt she was unsteady walk-in and leads with the left. Last normal was about 10:30 PM on 02/05/2023. She denies of any fever, ringing in the ears, any dizziness. Acute Unsteady when walking and leaning towards the left: Unsure exactly etiology. MRI the brain is negative for stroke or any enhancement. Rule out a ny spinal cord lesion leading to this. Today gait is drastically better than initial presentation. History of palpitation Hypertension Diabetes mellitus is newly diagnosed and she stated the recent hemoglobin A1c was 7.2 Hypercholesterolemia Plan: MRI of the cervical, thoracic and lumbar to rule out any spinal lesion leading to her unsteady gait but was notified will not be completed till this Friday. Because of her gait is drastically better can consider this as outpatient. Patient was given aspirin 325 once in the ED. I started the patient on aspirin 81 mg daily initially but since no stroke discontinued it. Cardiology team for patient's palpitation to rule out any underlying A. fib/flutter. The recommended 30 day event monitor. PT and OT are consulted Neuro checks Cardiac monitoring We'll defer the rest of the medical management to primary team For DVT prophylaxis I started the patient on subcu heparin 5000 units every 12 hours Recommend the patient to follow-up with neurologist as outpatient within 2-3 weeks. The plan is discussed with patient, her who is at bedside and her nurse. There is no further neurological work-up. Patient is clear for discharge from neurological perspective. Time with Patient: Less than 30
[2023-02-08] MEDS ORDERED: FAMOTIDINE 20 MG/2 ML VIAL IV SCH (21:00)
--- NOTE | 2023-02-08 22:48 | P.DS ---
Providers Date of admission: 02/07/23 12:45 Attending physician: Preeti Martin Consults: 02/06/23 10:04 Consult Physician Urgent Consulting Provider: John aWlker Consult Reason/Comments: Intractable ataxia Do you want consulting provider notified?: Yes 02/06/23 16:58 Consult Physician Routine Consulting Provider: Saleem Rose Consult Reason/Comments: palpitation. r/o afib/flutter Do you want consulting provider notified?: Yes Primary care physician: Vaibhav Singh [facility] Course: Diagnoses: Ataxia, CVA ruled out. Significantly improved Chronic kidney disease stage III hyperlipidemia hypertension Former smoker Daily alcohol use History of recent new onset diabetes diagnosis Obesity with a BMI of 34.0 Hospital course: This is a pleasant 67-year-old female who presented to the emergency department with with reports of unsteady gait and ataxia. Patient evaluated by neurologist, MRI of the brain was negative. Further workup was unremarkable. Today her ataxia significantly improved and patient back to or close to her baseline as per patient and at bedside and agree with this as well. Both the patient and were asking for her to be discharged home today. Neurologist was on the case and MRI of the brain was negative. Patient does not take aspirin however neurologist recommended MRI of the spines, because patient showed significant improvement almost back to normal, neurologist cleared the patient for discharge with recommendation to follow up with another neurologist as an outpatient in 2-3 weeks and MRI of the spine can be deferred as an outpatient, patient has been informed and they are agreeable News Editor recommended event monitor, 30 day event monitor as a scheduled for the patient this coming Friday at cardiology office, patient informed and she is agreeable. Patient denies any other new symptoms and she is eager to go home today. Patient was cleared for discharge by both cardiology and neurology services. Problems and management plan were discussed with the patient and he verbalized understanding and acceptance Patient was found stable and can be discharged home in guarded prognosis however he needs follow-up as an outpatient. Patient was instructed to follow up with PCP Dr. Singh within one week and patient agrees Patient was instructed to follow up with director of partner marketing Dr. Rose in one week and the neurologist Dr. Chong in 2 weeks after discharge and she agrees to call and make an appointment Physical exam Gen: patient is a AAOx3, no distress CVS: S1-S2, RRR, no murmur Lungs: B/L CTA, no wheezing Abdomen: soft, no distention, no tenderness, positive bowel sounds Extremity: no leg edema or induration Time spent more than 35 minutes Patient Condition at Discharge: Stable Plan - Discharge Summary New Discharge Prescriptions: New Meclizine [Antivert] 25 mg PO QID PRN 3 Days #12 tab PRN Reason: Vertigo amLODIPine [Norvasc] 5 mg PO DAILY #30 tab Continue Atorvastatin [Lipitor] 5 mg PO HS Cholecalciferol (Vitamin D3) [Vitamin D3 (3000 Iu)] 75 mcg PO DAILY metFORMIN HCL 500 mg PO HS Garlic 1,000 mg PO DAILY Calcium Carbonate 500 mg PO DAILY Discontinued amLODIPine [Norvasc] 2.5 mg PO DAILY Discharge Medication List Atorvastatin [Lipitor] 5 mg PO HS 08/28/16 [History] Calcium Carbonate 500 mg PO DAILY 02/06/23 [History] Cholecalciferol (Vitamin D3) [Vitamin D3 (3000 Iu)] 75 mcg PO DAILY 02/06/23 [History] Garlic 1,000 mg PO DAILY 02/06/23 [History] metFORMIN HCL 500 mg PO HS 02/06/23 [History] Meclizine [Antivert] 25 mg PO QID PRN 3 Days #12 tab 02/07/23 [Rx] amLODIPine [Norvasc] 5 mg PO DAILY #30 tab 02/07/23 [Rx] Follow up Appointment(s)/Referral(s): aSleem Rose MD [STAFF PHYSICIAN] - 3 Weeks (PT INSTRUCTED BY [facility] AT [facility]. TO COME OVER ANYTIME ON FRIDAY TO HAVE EVENT MONITOR PLACED. ) Vaibhav Singh DO [Primary Care Provider] - 1-2 days Chris Chong MD [Medical Doctor] - 2 Weeks (neurologist ) Patient Instructions/Handouts: Vertigo (ED) Activity/Diet/Wound Care/Special Instructions: heart healthy diet activity is restricted till you see your doctor PT TO GO TO [facility] ON FRIDAY (PER [facility] AT [facility]) TO HAVE 30 DAY EVENT MONITOR PLACED. NO APPT IS NECESSARY, PT CAN JUST COME ON FRIDAY....Lety Sahu RN PT'S SCRIPTS FOR HOME ARE IN PT'S CHART....Lety Sahu RN we recommend MRI of the cervical, thoracic and lumbar spine as outpatient and follow up the results with your primary care doctor and your neurologist in 1-2 weeks please please note : no need for aspirin upon discharge Discharge Disposition: HOME SELF-CARE
== END 2023-02-08 14:47 | disposition home or self-care (01) | DRG 69 ==
LOC: EC 05:36 → 6NMEDSUR 10:09 → OBSVTOIN 02-07 12:45
PROVIDERS: ADMIT Hospitalist; ATTEND Hospitalist
DX: I67.89 Other cerebrovascular disease (principal); E11.22 Type 2 diabetes mellitus with diabetic chronic kidney disease; M54.9 Dorsalgia, unspecified; N18.30 Chronic kidney disease, stage 3 unspecified; I12.9 Hypertensive chronic kidney disease with stage 1 through stage 4 chronic kidney disease, or unspecified chronic kidney disease; R27.0 Ataxia, unspecified; E78.00 Pure hypercholesterolemia, unspecified; E66.9 Obesity, unspecified; Z68.34 Body mass index [BMI] 34.0-34.9, adult; F41.0 Panic disorder [episodic paroxysmal anxiety]; I08.1 Rheumatic disorders of both mitral and tricuspid valves; Z79.84 Long term (current) use of oral hypoglycemic drugs; Z79.899 Other long term (current) drug therapy; Z87.891 Personal history of nicotine dependence; Z88.5 Allergy status to narcotic agent
CPT/HCPCS: 36415; 70450; 70496; 70498; 70553; 80048; 80053; 80061; 80306; 80320; 81001; 82550; 82607; 83036; 84439; 84443; 84484; 85025; 85610; 85730; 93005; 93306; 96361; 96374; 96375; 99285

== ENCOUNTER → 2023-04-23 | Outpatient (CLI) | payer MEDICARE ==
[2023-04-23 15:49] LABS: Basophils # (A) 0.03 X 10*3/uL (0.00-0.10); Basophils % (A) 0.5 %; Eosinophils # (A) 0.09 X 10*3/uL (0.04-0.35); Eosinophils % (A) 1.6 %; HCT 40.7 % (37.2-46.3); HGB 13.8 g/dL (12.0-15.0); Lymphocytes # (A) 1.99 X 10*3/uL (0.90-5.00); Lymphocytes % (A) 35.7 %; MCH 31.2 pg (27.0-32.0); MCHC 33.9 g/dL (32.0-37.0); MCV 92.1 FL (80.0-97.0); Mean Platelet Volume 9.4 FL (9.5-12.2); Monocytes # (A) 0.45 X 10*3/uL (0.20-1.00); Monocytes % (A) 8.1 %; NRBC Per 100 WBC 0 X 10*3/uL (0.00-0.01); Neutrophils % (A) 53.7 %; Platelet Count 272 X 10*3/uL (140-440); RBC 4.42 X 10*6/uL (4.10-5.20); RDW 12.3 % (11.5-14.5); WBC 5.58 X 10*3/uL (4.50-10.00)
[2023-04-23 16:01] LABS: BUN/Creat Ratio 18.31 Ratio (12.00-20.00); Blood Urea Nitrogen 23.8 mg/dL (9.0-27.0); Calcium 9.5 mg/dL (8.7-10.3); Carbon Dioxide 26.2 mmol/L (21.6-31.8); Chloride 103 mmol/L (96-109); Glucose 104 mg/dL (70-110); Sodium 142 mmol/L (135-145)
== END | disposition home or self-care (01) ==
LOC: LABPAT 10:07
PROVIDERS: ATTEND Orthopaedic Surgery Hand Surgery
DX: Z01.812 Encounter for preprocedural laboratory examination (principal); M65.332 Trigger finger, left middle finger
CPT/HCPCS: 36415; 80048; 85025

== ENCOUNTER 2023-05-07 06:05 | Day surgery (SDC) | payer MEDICARE ==
--- NOTE | 2023-05-05 15:25 | P.HPOR ---
History of Present Illness H&P Date: 05/05/23 Subjective: This is a 68 year old female that presents today for initial evaluation regarding a several month history of progressively worsening left middle finger pain with associated locking and catching and clicking. She underwent a steroid injection for a trigger finger in the same finger on April 19, [address] Moore and had temporary relief from her symptoms. She has a history of a right middle finger trigger finger A1 augustina release and responded well to dewey quin. Physical Examination: LUE: AIN/PIN/Radial/Ulnar/Median motor intact. Radial/Ulnar/Median SILT. 2+/4 Radial/Ulnar pulses palpated. 5/5 APB, 5/5 FDI. Negative Finkelsteins, negative CMC grind, negative Durkan's compression. TTP over RMF A1 augustina with locking and catching. Impression: 1.)Left middle finger trigger finger Plan: Diagnosis and treatment options were discussed with the patient. She would like to go forward with a left middle finger A1 augustina release after failing conservative treatment for her trigger finger. Risks and benefits of surgery including bleeding, infection, damage to surrounding tissue, need for further surgery, residual numbness were discussed and the patient wished to go forward with surgery. The patient was agreeable with this plan. -Ion Collins DO Orthopedic Hand/Upper Extremity Surgeon Past Medical History Past Medical History: Diabetes Mellitus, Hyperlipidemia, Hypertension, Liver Disease, Renal Disease Additional Past Medical History / Comment(s): fatty liver, hx. vertigo History of Any Multi-Drug Resistant Organisms: None Reported Past Surgical History: Appendectomy, Orthopedic Surgery Additional Past Surgical History / Comment(s): SURG RT HAND. LT KNEE- ARTHROSCOPIC, LT ROTATOR CUFF REPAIR, COLONOSCOPY, right foot surg. Past Anesthesia/Blood Transfusion Reactions: Postoperative Nausea & Vomiting (PONV) Additional Past Anesthesia/Blood Transfusion Reaction / Comment(s): only had PONV once after shoulder surg. Smoking Status: Former smoker - Past Family History Sister(s) Family Medical History: Cancer, Deep Vein Thrombosis (DVT), Myocardial Infarction ([place]) Brother(s) Family Medical History: Cancer Medications and Allergies Home Medications Medication Instructions Recorded Confirmed Type Atorvastatin [Lipitor] 5 mg PO HS 08/28/16 05/05/23 History Calcium Carbonate 500 mg PO DAILY 02/06/23 05/05/23 History Cholecalciferol (Vitamin D3) 75 mcg PO DAILY 02/06/23 05/05/23 History [Vitamin D3 (3000 Iu)] Garlic 1,000 mg PO DAILY 02/06/23 05/05/23 History metFORMIN HCL 500 mg PO HS 02/06/23 05/05/23 History Meclizine [Antivert] 25 mg PO QID PRN 3 Days #12 tab 02/07/23 05/05/23 Rx amLODIPine [Norvasc] 5 mg PO DAILY #30 tab 02/07/23 05/05/23 Rx Allergies Allergy/AdvReac Type Severity Reaction Status Date / Time hydromorphone AdvReac Chest Verified 05/05/23 09:46 Pain/JOHNY Physical Examination Osteopathic Statement: *. No significant issues noted on an osteopathic structural exam other than those noted in the History and Physical/Consult.
[~2023-05-07 06:05] MED LIST changes: -LACTATED RINGERS 1,000 ML IV SCH; -LIDOCAINE 1% (10MG/ML) FOR IV START INTRADERMA PRN; +Pre Op ABX Message 1 EACH MISC MISCELLANE ONE
[2023-05-07] MEDS ORDERED: LIDOCAINE 1% (10MG/ML) FOR IV START INTRADERMA PRN (06:36)
[2023-05-07] MEDS: LACTATED RINGERS 1,000 ML IV SCH (06:57)
[2023-05-07 06:58] LABS: Glucose,Whole Blood 100 mg/dL (70-110)
[2023-05-07] MEDS ORDERED: MIDAZOLAM 2 MG/2 ML VIAL IV PRN (07:00)
[2023-05-07] MEDS: DEXAMETHASONE SOD PHOSPHATE 4 MG/ML 1 ML VIAL IV ONE (07:02)
[2023-05-07] MEDS: ONDANSETRON 4 MG/2 ML VIAL IVP ONE (07:02)
[2023-05-07 07:05] VITALS: TEMP 98.2
[2023-05-07] MEDS: BUPIVACAINE (PF) 0.5% 30 ML VIAL SQ ONE ×2 (07:17→07:31)
[2023-05-07] MEDS: LIDOCAINE 2% INJ 20 MG/ML SQ ONE ×2 (07:17→07:31)
[2023-05-07] MEDS ORDERED: MIDAZOLAM 2 MG/2 ML VIAL ONE (07:21)
[2023-05-07] MEDS ORDERED: fentaNYL (PF) 50 MCG/ML 2 ML AMP ONE (07:21)
[2023-05-07] MEDS ORDERED: PROPOFOL 10 MG/ML 20 ML VIAL IV ONE (07:21)
--- NOTE | 2023-05-07 07:43 | P.OP ---
Date of Procedure: 05/07/23 Preoperative Diagnosis: 1.) Left middle finger trigger finger Postoperative Diagnosis: 1.) Left middle finger trigger finger Procedure(s) Performed: Left middle finger A1 augustina release Anesthesia: MAC Surgeon: Ion Collins Cotton Roll Packer #1: Ryan Darling Estimated Blood Loss (ml): 0 Pathology: none sent Condition: stable Disposition: PACU Description of Procedure: This is a 68 year old female who presents today for a left middle finger trigger finger A1 augustina release after having failed conservative treatment. Risks and benefits of surgery were discussed with the patient including bleeding, damage to surrounding tissue, infection, need for further surgery as well as risks of anesthesia including pulmonary embolism and even and the patient wished to proceed with surgical intervention. The patient was seen in the pre-operative area by myself. Consent and H&P were completed and updated. The correct extremity was marked in the pre-operative area by myself and all other questions were answered. Operative Narrative: The patient was brought to the operating room by the department of anesthesia. They remained on the portable stretcher and a rolling hand table was brought to the side of the operative extremity. Pre-operative time out was performed indicating the correct patient, procedure and laterality. All in the room agreed. Pre-operative antibiotics were given prior to skin incision. The patient was then drifted off to sleep by the department of anesthesia. MAC anesthesia was utilized and a 50:50 mixture of 1% Lidocaine and 0.5% bupivacaine was injected into the subcutaneous tissues of the palmar skin, 3ccs total. A nonsterile tourniquet was then applied to the operative extremity and the left upper extremity was then prepped and draped in normal sterile fashion. The operative extremity was the exsanguinated with an esmarch bandage and the tourniquet was inflated to 250mmHg. Oblique incision was made at the base of the left middle finger. Blunt dissection was taken down to the level of the A1 augustina. Ragnell retractors were placed both radially and ulnarly to protect neurovascular bundles. Littler tenotomy scissors were then used to release the A1 augustina from proximal to distal under direct visualization. Proximal fascial attachments were released. The tendon was then taken through range of motion and no locking or catching was appreciated. The wound was then closed with interrupted 4-0 nylon sutures in a horizontal mattress fashion. Sterile dressing consisting of adaptic, 4x4s, webril, and an daija wrap was applied. Tourniquet was let down and the hand was immediately well perfused. The patient was then woken by the department of anesthesia and transferred to PACU in stable condition. Ryan ASENCIO was present to assist in major portions of the procedure. Ion Clolins D.O. Orthopedic Hand/Upper Extremity Surgeon
[2023-05-07 08:03] LABS: Glucose,Whole Blood 109 mg/dL (70-110)
[2023-05-07 08:06] VITALS: BP 122/71; PULSE 74
[2023-05-07 08:07] VITALS: RESP 14
== END 2023-05-07 08:25 | disposition home or self-care (01) ==
LOC: OR 06:05
PROVIDERS: ATTEND Orthopaedic Surgery Hand Surgery
DX: M65.332 Trigger finger, left middle finger (principal); E11.9 Type 2 diabetes mellitus without complications; E78.5 Hyperlipidemia, unspecified; I10 Essential (primary) hypertension; K76.0 Fatty (change of) liver, not elsewhere classified; F41.0 Panic disorder [episodic paroxysmal anxiety]; Z87.891 Personal history of nicotine dependence; Z88.5 Allergy status to narcotic agent; Z79.84 Long term (current) use of oral hypoglycemic drugs; Z79.899 Other long term (current) drug therapy
CPT/HCPCS: 26055; J2001; J2250; J1100; J2405; J3010; J2704; J0665

== ENCOUNTER → 2023-07-21 | Outpatient (CLI) | payer MEDICARE ==
--- NOTE | 2023-07-22 19:33 | MM ---
Reason for Exam: Screening (asymptomatic). Last mammogram was performed 1 year(s) and 1 month(s) ago. Patient History: Menarche at age 12. First Full-Term at age 20. Postmenopausal. Maternal grandmother had breast cancer, age 70. Sister had breast cancer, age 55. Risk Values: Bhumi 5 year model risk: 3.3%. NCI Lifetime model risk: 9.9%. Prior Study Comparison: 06/08/2021 Bilateral Screening Mammogram, [facility]. 06/14/2021 Right Diagnostic Mammogram, [facility]. 06/10/2022 Bilateral MG screening mammo w CAD, [facility]. Tissue Density: The breasts are heterogeneously dense, which may obscure small masses. Findings: Analyzed By CAD. Partially obscured central inner right breast nodularity becomes apparent on 3-D images. Further evaluation is recommended. Otherwise, no significant change. Overall Assessment: Incomplete: need additional imaging evaluation, BI-RAD 0 Management: Special View Mammogram of the right breast. Diagnostic Breast Ultrasound of the right breast. Additional views to include spot 3-D CC, 3-D CC rolled, and 3-D LM views. Targeted right breast ultrasound for any persisting abnormality. [facility] will attempt to contact patient to return for supplemental views and ultrasound if indicated. Electronically signed and approved by: Franco Agrawal M.D. Radiologist
== END | disposition home or self-care (01) ==
LOC: RADMAMWWP 10:23
PROVIDERS: ATTEND Family Medicine
DX: Z12.31 Encounter for screening mammogram for malignant neoplasm of breast (principal); Z78.0 Asymptomatic menopausal state; Z80.3 Family history of malignant neoplasm of breast
CPT/HCPCS: 77063; 77067

== ENCOUNTER → 2023-07-24 | Outpatient (CLI) | payer MEDICARE ==
--- NOTE | 2023-07-24 10:01 | USB ---
Patient History: Menarche at age 12. First Full-Term at age 20. Postmenopausal. Maternal grandmother had breast cancer, age 70. Sister had breast cancer, age 55. Risk Values: Bhumi 5 year model risk: 3.3%. NCI Lifetime model risk: 9.9%. Technique: Method: Targeted. Prior Study Comparison: 06/14/2021 Right Diagnostic Mammogram, [facility]. 06/10/2022 Bilateral MG screening mammo w CAD, [facility]. 07/21/2023 Bilateral MG 3D screening mammo w/cad, [facility]. Findings: The upper inner quadrant of the right breast, the axilla of the right breast and the retroareolar of the right breast were scanned. 2 adjacent cysts noted at the right 1:00 location 5 cm from the nipple measuring 7 x 3 mm and 5 mm respectively. No solid masses seen.. Overall Assessment: Benign, BI-RAD 2 Management: Screening Mammogram of both breasts in 1 year. A clinical breast exam by your physician is recommended on an annual basis and results should be correlated with mammographic findings. This exam should not preclude additional follow-up of suspicious palpable abnormalities. Results were given to the patient verbally at the time of exam. Electronically signed and approved by: Nitish Rae M.D. Radiologis
--- NOTE | 2023-07-25 12:45 | MM ---
Reason for Exam: Additional evaluation requested from abnormal screening. Last screening mammogram was performed less than 1 month ago. Patient History: Menarche at age 12. First Full-Term at age 20. Postmenopausal. Maternal grandmother had breast cancer, age 70. Sister had breast cancer, age 55. Risk Values: Bhumi 5 year model risk: 3.3%. NCI Lifetime model risk: 9.9%. Prior Study Comparison: 05/19/2020 Bilateral Screening Mammogram, [facility]. 06/08/2021 Bilateral Screening Mammogram, [facility]. 06/14/2021 Right Diagnostic Mammogram, [facility]. 06/10/2022 Bilateral MG screening mammo w CAD, [facility]. 07/21/2023 Bilateral MG 3D screening mammo w/cad, [facility]. Tissue Density: Right: The breasts are heterogeneously dense, which may obscure small masses. Findings: Analyzed By CAD. Approximate 1:00 nodule 5.4 cm from the nipple measuring 5 to 6 mm. Ultrasound recommended. Overall Assessment: Incomplete: need additional imaging evaluation, BI-RAD 0 Management: Diagnostic Breast Ultrasound of the right breast. . Results were given to the patient verbally at the time of exam. Patient should continue monthly self-breast exams. A clinical breast exam by your physician is recommended on an annual basis. This exam should not preclude additional follow-up of suspicious palpable abnormalities. Note on Bhumi scores and lifetime risk: 1. A Bhumi score greater than 3% is considered moderate risk. If this is the case, consider specialist referral to assess eligibility for a risk reducing agent. 2. If overall lifetime risk for the development of breast cancer is 20% or higher, the patient may qualify for future screening with alternating mammogram and breast MRI. Electronically signed and approved by: Nitish Rae M.D. Radiologis
== END | disposition home or self-care (01) ==
LOC: RADMAMWWP 09:10
PROVIDERS: ATTEND Family Medicine
DX: N60.11 Diffuse cystic mastopathy of right breast (principal); R92.331 Mammographic heterogeneous density, right breast; Z80.3 Family history of malignant neoplasm of breast; Z78.0 Asymptomatic menopausal state
CPT/HCPCS: 77065; 76642; G0279; 77061

== ENCOUNTER 2023-10-06 10:49 | Emergency (ER) | payer MEDICARE ==
[2023-10-06 10:57] VITALS: TEMP 97.1
--- NOTE | 2023-10-06 11:24 | ED ---
Weakness HPI - General Chief complaint: Weakness Stated complaint: hypertension Time Seen by Provider: 10/06/23 10:52 Source: patient, family, EMS, RN notes reviewed Mode of arrival: EMS Limitations: no limitations - History of Present Illness Initial comments: This is a 68-year-old female who presents to the emergency department for dizziness, weakness, and elevated blood pressure. She was previously taking amlodipine 5 mg. She noticed that when she would be outside in the heat her ankles would start to swell up. She saw her primary care provider 6 days ago and they switched her from amlodipine to losartan 25 mg in case the amlodipine was contributing to the swelling. A couple of days after taking the losartan she started to feel like her head was very heavy. She was also dizzy and began feeling very weak. Symptoms got significantly worse this morning and states that she is unable to walk. She was admitted in January 2023 for problems with walking as well and symptoms were thought to be related to vertigo. She was started on vertigo medicine which improved symptoms. However, states that this feels different from vertigo. She did try taking meclizine but did not have any relief. Reports some shortness of breath. Denies any chest pain. MD Complaint: generalized weakness, difficulty walking - Related Data Home Medications Medication Instructions Recorded Confirmed Atorvastatin [Lipitor] 5 mg PO HS 08/28/16 05/07/23 Calcium Carbonate 500 mg PO DAILY 02/06/23 05/07/23 Cholecalciferol (Vitamin D3) 75 mcg PO DAILY 02/06/23 05/07/23 [Vitamin D3 (3000 Iu)] Garlic 1,000 mg PO DAILY 02/06/23 05/07/23 metFORMIN HCL 500 mg PO HS 02/06/23 05/07/23 Previous Rx's Medication Instructions Recorded Meclizine [Antivert] 25 mg PO QID PRN 3 Days #12 tab 02/07/23 amLODIPine [Norvasc] 5 mg PO DAILY #30 tab 02/07/23 cloNIDine HCL [Catapres] 0.1 mg PO BID #30 tab 10/06/23 Allergies Allergy/AdvReac Type Severity Reaction Status Date / Time hydromorphone AdvReac Chest Verified 05/07/23 06:43 Pain/JOHNY Review of Systems ROS Statement: Those systems with pertinent positive or pertinent negative responses have been documented in the HPI. ROS Other: All systems not noted in ROS Statement are negative. Past Medical History Past Medical History: Hyperlipidemia, Hypertension Additional Past Medical History / Comment(s): INJURY TO LT KNEE History of Any Multi-Drug Resistant Organisms: None Reported Past Surgical History: Orthopedic Surgery Additional Past Surgical History / Comment(s): SURG RT HAND. LT KNEE- ARTHROSCOPIC ; LT ROTATOR CUFF REPAIR , COLONOSCOPY. Past Anesthesia/Blood Transfusion Reactions: Previous Problems w/ Anesthesia, P ostoperative Nausea & Vomiting (PONV) Past Psychological History: Panic Disorder Smoking Status: Former smoker Past Alcohol Use History: Daily Past Drug Use History: None Reported - Past Family History Sister(s) Family Medical History: Cancer, Deep Vein Thrombosis (DVT), Myocardial Infarction (CA) Brother(s) Family Medical History: Cancer General Exam Limitations: no limitations General appearance: alert, in no apparent distress Head exam: Present: atraumatic, normocephalic, normal inspection Eye exam: Present: normal appearance, PERRL, EOMI. Absent: scleral icterus, conjunctival injection, periorbital swelling Respiratory exam: Present: normal lung sounds bilaterally. Absent: respiratory distress, wheezes, rales, rhonchi, stridor Cardiovascular Exam: Present: regular rate, normal rhythm, normal heart sounds. Absent: systolic murmur, diastolic murmur, rubs, gallop, clicks Neurological exam: Present: alert, oriented X3, CN II-XII intact Psychiatric exam: Present: normal affect, normal mood Skin exam: Present: warm, dry, intact, normal color. Absent: rash Course Vital Signs 10/06/23 10/06/23 10/06/23 10:51 10:59 13:11 Temperature 97.1 F L Pulse Rate 76 64 Pulse Rate [ 70 Pay Clerk ] Respiratory 22 18 Rate Blood Pressure 184/96 151/74 O2 Sat by Pulse 100 98 Oximetry 10/06/23 13:53 Temperature Pulse Rate 87 Pulse Rate [ Pay Clerk ] Respiratory 18 Rate Blood Pressure 153/75 O2 Sat by Pulse 98 Oximetry Medical Decision Making - Medical Decision Making This is a 68 year old female who presents to the emergency department for weakness, dizziness, and elevated BP. Was pt. sent in by a medical professional or institution? @ -No Did you speak to anyone other than the patient for history? @ -No Did you review nursing and triage notes? @ -Yes, and I agree, it is accurate with regards to the patient's symptoms. Were old charts reviewed? @ -No Differential Diagnosis? @ -Differential Weakness: Hypoglycemia, shock, sepsis, hyponatremia, anemia, infection, CA, ETOH, adverse medicine reaction, overdose, stroke, this is not meant to be an all-inclusive list. EKG interpreted by me (3pts min.)? @ -EKG interpreted by me demonstrating the following: Sinus rhythm. Ventricular rate 66 bpm, GA interval 189 ms, QRS duration 94 ms, QTc 429 ms. X-rays interpreted by me (1pt min.)? @ -Chest x-ray obtained, my interpretation identifies no localized consolidations or infiltrates. CT interpreted by me (1pt min.)? @ -CT scan of the brain obtained. My interpretation identifies no evidence of an acute intracranial hemorrhage. U/S interpreted by me (1pt. min.)? @ -Not obtained What testing was considered but not performed? (CT, X-rays, U/S, labs)? Why? @ -None What meds were considered but not given? Why? @ -None Did you discuss the management of the patient with other professionals? @ -No Did you reconcile home meds? @ -No Was smoking cessation discussed for >3mins.? @ -No Was critical care preformed (if so, how long)? @ -No Were there social determinants of health that impacted care today? How? (Homelessness, low income, unemployed, alcoholism, drug addiction, transportation, low edu. Level, literacy, decrease access to med. care, prison, rehab)? @ -No Was there de-escalation of care discussed even if they declined? (Discuss DNR or withdrawal of care, Hospice)? @ -No What co-morbidities impacted this encounter? (DM, HTN, Smoking, COPD, CAD, Cancer, CVA, Hep., AIDS, mental health diagnosis, sleep apnea, morbid obesity)? @ -HTN, HLD Was patient admitted / discharged? @ -Discharged. Lab work demonstrates signs of dehydration based on renal function and lactic acid and was otherwise fairly unremarkable. Urinalysis negative for signs of infection. Chest x-ray reveals no acute process. CT scan of the brain obtained also revealing no acute findings. She was given a liter bolus of IV fluids in the emergency department. BP on arrival was 184/96. Aft er the liter of IV fluids it was rechecked at 153/75. Patient did feel that her symptoms improved following the liter of fluids. She was comfortable with discharge home. In the event that the losartan was potentially contributing to her symptoms, a prescription for clonidine to be taken twice daily was provided for further management of her blood pressure. First dose administered in the emergency department. Advised to keep a log of her blood pressure, checking it a few times each day and have close follow-up with her primary care provider. Undiagnosed new problem with uncertain prognosis? @ -None Drug Therapy requiring intensive monitoring for toxicity (Heparin, Nitro, Insulin, Cardizem)? @ -None Were any procedures done? @ -None Diagnosis/symptom? @ -Dizziness, difficulty walking Acute, or Chronic, or Acute on Chronic? @ -Acute Uncomplicated (without systemic symptoms) or Complicated (systemic symptoms)? @ -Uncomplicated Side effects of treatment? @ -None Exacerbation, Progression, or Severe Exacerbation] @ -Not applicable Poses a threat to life or bodily function? @ -Unlikely, however this will depend on how she progresses Return precautions reviewed in depth, the patient is instructed to return to the emergency department with any new, worsening, or concerning symptoms. Patient verbalized understanding. This case was discussed in detail with the attending ED physician, Dr. Alex. Presentation, findings, and treatment plan discussed in detail as well. - Lab Data Result diagrams: 10/06/23 11:45 10/06/23 11:45 Lab Results 10/06/23 10/06/23 10/06/23 Range/Units 11:45 11:45 11:45 WBC 5.6 (3.8-10.6) k/uL RBC 4.47 (3.80-5.40) m/uL Hgb 13.8 (11.4-16.0) gm/dL Hct 42.2 (34.0-46.0) % MCV 94.5 (80.0-100.0) fL MCH 30.8 (25.0-35.0) pg MCHC 32.6 (31.0-37.0) g/dL RDW 12.5 (11.5-15.5) % Plt Count 262 (150-450) k/uL MPV 7.5 Neutrophils % 63 % Lymphocytes % 25 % Monocytes % 7 % Eosinophils % 2 % Basophils % 1 % Neutrophils # 3.5 (1.3-7.7) k/uL Lymphocytes # 1.4 (1.0-4.8) k/uL Monocytes # 0.4 (0-1.0) k/uL Eosinophils # 0.1 (0-0.7) k/uL Basophils # 0.1 (0-0.2) k/uL PT 9.7 L (10.0-12.5) sec INR 0.9 (<1.2) APTT 22.3 (22.0-30.0) sec Sodium 140 (137-145) mmol/L Potassium 3.6 (3.5-5.1) mmol/L Chloride 108 H (98-107) mmol/L Carbon Dioxide 24 (22-30) mmol/L Anion Gap 8 mmol/L BUN 33 H (7-17) mg/dL Creatinine 1.12 H (0.52-1.04) mg/dL Est GFR (CKD-EPI)AfAm 58 (>60 ml/min/1.73 sqM) Est GFR (CKD-EPI)NonAf 50 (>60 ml/min/1.73 sqM) Glucose 164 H (74-99) mg/dL Plasma Lactic Acid Romain (0.7-2.0) mmol/L Calcium 9.4 (8.4-10.2) mg/dL Phosphorus 2.6 (2.5-4.5) mg/dL Magnesium 2.2 (1.6-2.3) mg/dL Total Bilirubin 0.7 (0.2-1.3) mg/dL AST 31 (14-36) U/L ALT 23 (4-34) U/L Alkaline Phosphatase 87 (38-126) U/L Troponin I (0.000-0.034) ng/mL NT-Pro-B Natriuret Pep 46 pg/mL Total Protein 7.0 (6.3-8.2) g/dL Albumin 4.2 (3.5-5.0) g/dL TSH 0.694 (0.465-4.680) mIU/L Urine Color Urine Appearance (Clear) Urine pH (5.0-8.0) Ur Specific [place] (1.001-1.035) Urine Protein (Negative) Urine Glucose (UA) (Negative) Urine Ketones (Negative) Urine Blood (Negative) Urine Nitrite (Negative) Urine Bilirubin (Negative) Urine Urobilinogen (<2.0) mg/dL Ur Leukocyte Esterase (Negative) Urine RBC (0-5) /hpf Urine WBC (0-5) /hpf 10/06/23 10/06/23 10/06/23 Range/Units 11:45 11:45 12:00 WBC (3.8-10.6) k/uL RBC (3.80-5.40) m/uL Hgb (11.4-16.0) gm/dL Hct (34.0-46.0) % MCV (80.0-100.0) fL MCH (25.0-35.0) pg MCHC (31.0-37.0) g/dL RDW (11.5-15.5) % Plt Count (150-450) k/uL MPV Neutrophils % % Lymphocytes % % Monocytes % % Eosinophils % % Basophils % % Neutrophils # (1.3-7.7) k/uL Lymphocytes # (1.0-4.8) k/uL Monocytes # (0-1.0) k/uL Eosinophils # (0-0.7) k/uL Basophils # (0-0.2) k/uL PT (10.0-12.5) sec INR (<1.2) APTT (22.0-30.0) sec Sodium (137-145) mmol/L Potassium (3.5-5.1) mmol/L Chloride (98-107) mmol/L Carbon Dioxide (22-30) mmol/L Anion Gap mmol/L BUN (7-17) mg/dL Creatinine (0.52-1.04) mg/dL Est GFR (CKD-EPI)AfAm (>60 ml/min/1.73 sqM) Est GFR (CKD-EPI)NonAf (>60 ml/min/1.73 sqM) Glucose (74-99) mg/dL Plasma Lactic Acid Romain 2.1 H* (0.7-2.0) mmol/L Calcium (8.4-10.2) mg/dL Phosphorus (2.5-4.5) mg/dL Magnesium (1.6-2.3) mg/dL Total Bilirubin (0.2-1.3) mg/dL AST (14-36) U/L ALT (4-34) U/L Alkaline Phosphatase (38-126) U/L Troponin I <0.012 (0.000-0.034) ng/mL NT-Pro-B Natriuret Pep pg/mL Total Protein (6.3-8.2) g/dL Albumin (3.5-5.0) g/dL TSH (0.465-4.680) mIU/L Urine Color Colorless Urine Appearance Clear (Clear) Urine pH 7.0 (5.0-8.0) Ur Specific [place] 1.007 (1.001-1.035) Urine Protein Negative (Negative) Urine Glucose (UA) Negative (Negative) Urine Ketones Negative (Negative) Urine Blood Trace H (Negative) Urine Nitrite Negative (Negative) Urine Bilirubin Negative (Negative) Urine Urobilinogen <2.0 (<2.0) mg/dL Ur Leukocyte Esterase Negative (Negative) Urine RBC 2 (0-5) /hpf Urine WBC 1 (0-5) /hpf - Radiology Data Radiology results: report reviewed, image reviewed Disposition Clinical Impression: Hypertension, Dizziness Disposition: HOME SELF-CARE Instructions (If sedation given, give patient instructions): Hypertension (ED) Additional Instructions: Return to the emergency department with any new, worsening, or concerning sy mptoms. Begin taking this blood pressure medication twice daily. Keep a log of your blood pressure and try to check it at least a few times each day. Move around slowly and drink lots of fluids. Follow up with your primary care provider in 1-2 days. Prescriptions: cloNIDine HCL [Catapres] 0.1 mg PO BID #30 tab Is patient prescribed a controlled substance at d/c from ED?: No Referrals: Vaibhav Singh DO [Primary Care Provider] - 1-2 days Time of Disposition: 13:26
[2023-10-06] MEDS: SODIUM CHLORIDE 0.9% 1,000 ML IV STA (11:50)
[2023-10-06 12:16] LABS: Basophils # (A) 0.1 k/uL (0-0.2); Basophils % (A) 1 %; Eosinophils # (A) 0.1 k/uL (0-0.7); Eosinophils % (A) 2 %; HCT 42.2 % (34.0-46.0); HGB 13.8 gm/dL (11.4-16.0); Lymphocytes # (A) 1.4 k/uL (1.0-4.8); Lymphocytes % (A) 25 %; MCH 30.8 pg (25.0-35.0); MCHC 32.6 g/dL (31.0-37.0); MCV 94.5 fL (80.0-100.0); Mean Platelet Volume 7.5; Monocytes # (A) 0.4 k/uL (0-1.0); Monocytes % (A) 7 %; Neutrophils # (A) 3.5 k/uL (1.3-7.7); Neutrophils % (A) 63 %; Platelet Count 262 k/uL (150-450); RBC 4.47 m/uL (3.80-5.40); RDW 12.5 % (11.5-15.5); WBC 5.6 k/uL (3.8-10.6)
[2023-10-06 12:18] LABS: INR 0.9 (<1.2); Partial Thromboplastin Time 22.3 sec (22.0-30.0); Prothrombin Time 9.7 sec (10.0-12.5)
[2023-10-06 12:24] LABS: Appearance,Urine Clear (Clear); Bilirubin,Urine Negative (Negative); Blood,Urine Trace (Negative); Color,Urine Colorless; Glucose,Urine (UA) Negative (Negative); Ketones,Urine Negative (Negative); Leukocyte Esterase,Urine Negative (Negative); Nitrite,Urine Negative (Negative); Protein,Urine Negative (Negative); RBC,Urine 2 /hpf (0-5); Specific Gravity,Urine 1.007 (1.001-1.035); Urobilinogen,Urine <2.0 mg/dL (<2.0); WBC,Urine 1 /hpf (0-5)
[2023-10-06 12:32] LABS: NT-Pro-B-Type Natriuretic Pept 46 pg/mL
--- NOTE | 2023-10-06 12:32 | CT ---
EXAMINATION TYPE: CT brain wo con CT DLP: 1078.3 mGycm, Automated exposure control for dose reduction was used. DATE OF EXAM: 10/06/2023 12:27 PM COMPARISON: 02/06/2023. CLINICAL INDICATION:Female, 68 years old with history of weakness, ataxia, DIZZY/ WEAK/ NEW bp MEDICA TION TECHNIQUE: Brain: Axial CT images of the brain were obtained with coronal and sagittal reformats created and rev iewed. Contrast used: None. Oral contrast used: None. FINDINGS: Brain: Extra-axial spaces: No abnormal extra-axial fluid collections. Ventricular system: Within normal limits Cerebral parenchyma: No acute intraparenchymal hemorrhage or mass effect. The molina-white junction is well differentiated. Cerebellum: Unremarkable. Mass effect: No evidence of midline shift. Intracranial vasculature: Atherosclerotic calcifications of the intracranial vessels. Soft tissues: Normal. Calvarium/osseous structures: No depressed skull fracture. Paranasal sinuses and mastoid air cells: Mild scattered paranasal sinus disease. Visualized orbits: Orbital contents are intact. IMPRESSION: No acute intracranial process.
--- NOTE | 2023-10-06 13:03 | XR ---
EXAMINATION TYPE: XR chest 2V DATE OF EXAM: 10/06/2023 12:41 PM CLINICAL INDICATION:Female, 68 years old with history of Weakness; [facility] COMPARISON: None TECHNIQUE: XR chest 2V Frontal view of the chest. FINDINGS: Lungs/Pleura: There is no evidence of pleural effusion, focal consolidation, or pneumothorax. Pulmonary vascularity: Unremarkable. Heart/mediastinum: Cardiomediastinal silhouette is unremarkable. Musculoskeletal: No acute osseous pathology. IMPRESSION: No acute cardiopulmonary disease/process.
[2023-10-06 13:05] LABS: ALT 23 U/L (4-34); AST 31 U/L (14-36); African American GFR (CKD) 58 (>60 ml/min/1.73 sqM); Albumin 4.2 g/dL (3.5-5.0); Alkaline Phosphatase 87 U/L (38-126); Anion Gap 8 mmol/L; Blood Urea Nitrogen 33 mg/dL (7-17); Calcium 9.4 mg/dL (8.4-10.2); Carbon Dioxide 24 mmol/L (22-30); Chloride 108 mmol/L (98-107); Glucose 164 mg/dL (74-99); Magnesium 2.2 mg/dL (1.6-2.3); Non-African American GFR(CKD) 50 (>60 ml/min/1.73 sqM); Phosphorus 2.6 mg/dL (2.5-4.5); Potassium 3.6 mmol/L (3.5-5.1); Sodium 140 mmol/L (137-145); Total Bilirubin 0.7 mg/dL (0.2-1.3)
[2023-10-06 13:13] VITALS: RESP 18
[2023-10-06] MEDS: cloNIDine HCL 0.1 MG TAB PO STA (13:25)
[2023-10-06 13:55] VITALS: BP 153/75; PULSE 87
== END 2023-10-06 13:55 | disposition home or self-care (01) ==
LOC: EC 10:49
DX: R42 Dizziness and giddiness (principal); I10 Essential (primary) hypertension; E78.5 Hyperlipidemia, unspecified; Z87.891 Personal history of nicotine dependence; Z88.8 Allergy status to other drugs, medicaments and biological substances; Z79.899 Other long term (current) drug therapy
CPT/HCPCS: 36415; 70450; 71046; 80053; 81001; 83605; 83735; 83880; 84100; 84443; 84484; 85025; 85610; 85730; 93005; 96360; 96361; 99285

== ENCOUNTER 2024-06-11 19:17 | Emergency (ER) | payer MEDICARE ==
[2024-06-11 19:38] VITALS: BP 148/82; PULSE 97; RESP 18; TEMP 99.1
--- NOTE | 2024-06-11 20:13 | ED ---
Abdominal Pain HPI - General Chief Complaint: Abdominal Pain Stated Complaint: abd pain Time Seen by Provider: 06/11/24 19:37 Source: patient, RN notes reviewed Mode of arrival: ambulatory Limitations: no limitations - History of Present Illness Initial Comments: This is a 69-year-old female who presents to the emergency department for abdominal pain. Patient reports intermittent abdominal pain over the last 3 days. This is in the center of her lower abdomen. Today she started having nausea and vomiting. States that it almost feels like severe menstrual cramps. MD Complaint: abdominal pain - Related Data Home Medications Medication Instructions Recorded Confirmed Atorvastatin [Lipitor] 5 mg PO HS 08/28/16 05/07/23 Calcium Carbonate 500 mg PO DAILY 02/06/23 05/07/23 Cholecalciferol (Vitamin D3) 75 mcg PO DAILY 02/06/23 05/07/23 [Vitamin D3 (3000 Iu)] Garlic 1,000 mg PO DAILY 02/06/23 05/07/23 metFORMIN HCL 500 mg PO HS 02/06/23 05/07/23 Previous Rx's Medication Instructions Recorded Meclizine [Antivert] 25 mg PO QID PRN 3 Days #12 tab 02/07/23 amLODIPine [Norvasc] 5 mg PO DAILY #30 tab 02/07/23 cloNIDine HCL [Catapres] 0.1 mg PO BID #30 tab 10/06/23 Amoxic-Pot Clav 875-125Mg 1 tab PO Q12HR 10 Days #20 tab 06/11/24 [Augmentin 875-125] HYDROcodone/APAP 5-325MG [[place] 1 tab PO Q6HR PRN 3 Days #12 tab 06/11/24 5-325] Ondansetron Odt [Zofran Odt] 4 mg PO Q8HR PRN #20 tab 06/11/24 Allergies Allergy/AdvReac Type Severity Reaction Status Date / Time hydromorphone AdvReac Chest Verified 06/11/24 19:37 Pain/JOHNY Review of Systems ROS Statement: Those systems with pertinent positive or pertinent negative responses have been documented in the HPI. ROS Other: All systems not noted in ROS Statement are negative. Past Medical History Past Medical History: Hyperlipidemia, Hypertension Additional Past Medical History / Comment(s): INJURY TO LT KNEE History of Any Multi-Drug Resistant Organisms: None Reported Past Surgical History: Orthopedic Surgery Additional Past Surgical History / Comment(s): SURG RT HAND. LT KNEE- ARTHROSCOPIC ; LT ROTATOR CUFF REPAIR , COLONOSCOPY. Past Anesthesia/Blood Transfusion Reactions: Previous Problems w/ Anesthesia, Postoperative Nausea & Vomiting (PONV) Past Psychological History: Panic Disorder Smoking Status: Former smoker Past Alcohol Use History: Occasional Past Drug Use History: None Reported - Past Family History Sister(s) Family Medical History: Cancer, Deep Vein Thrombosis (DVT), Myocardial Infarction (VT) Brother(s) Family Medical History: Cancer General Exam Limitations: no limitations General appearance: alert, in no apparent distress Head exam: Present: atraumatic, normocephalic, normal inspection Respiratory exam: Present: normal lung sounds bilaterally. Absent: respiratory distress, wheezes, rales, rhonchi, stridor Cardiovascular Exam: Present: regular rate, normal rhythm, normal heart sounds. Absent: systolic murmur, diastolic murmur, rubs, gallop, clicks GI/Abdominal exam: Present: soft, tenderness (Lower abdomen), normal bowel sounds. Absent: distended Neurological exam: Present: alert, oriented X3, CN II-XII intact Psychiatric exam: Present: normal affect, normal mood Skin exam: Present: warm, dry, intact, normal color. Absent: rash Course Vital Signs 06/11/24 19:34 Temperature 99.1 F Pulse Rate 97 Respiratory 18 Rate Blood Pressure 148/82 O2 Sat by Pulse 97 Oximetry Medical Decision Making - Medical Decision Making This is a 69-year-old female who presents to the emergency department for abdominal pain. Was pt. sent in by a medical professional or institution? @ -No Did you speak to anyone other than the patient for history? @ -No Did you review nursing and triage notes? @ -Yes, and I agree, it is accurate with regards to the patient's symptoms. Were old charts reviewed? @ -No Differential Diagnosis? @ -Differential Abdominal Pain Women: Appendicitis, Cholecystitis, diverticulosis, ischemic bowel, pancreatitis, hepatitis, UTI, gastroenteritis, AAA, incarcerated hernia, bowel obstruction, constipation, inflammatory bowel, hepatitis, peptic ulcer disease, splenic infarction, perforated viscus, vulvitis, ovarian torsion, PID, kidney stone, placenta abruption, this is not meant to be an all-inclusive list EKG interpreted by me (3pts min.)? @ -Not obtained X-rays interpreted by me (1pt min.)? @ -Not obtained CT interpreted by me (1pt min.)? @ -CT scan of the abdomen and pelvis obtained. My interpretation identifies sigmoid wall thickening. U/S interpreted by me (1pt. min.)? @ -Not obtained What testing was considered but not performed? (CT, X-rays, U/S, labs)? Why? @ -None What meds were considered but not given? Why? @ -None Did you discuss the management of the patient with other professionals? @ -No Did you reconcile home meds? @ -No Was smoking cessation discussed for >3mins.? @ -No Was critical care preformed (if so, how long)? @ -No Were there social determinants of health that impacted care today? How? (Homelessness, low income, unemployed, alcoholism, drug addiction, transportation, low edu. Level, literacy, decrease access to med. care, senior care, rehab)? @ -No Was there de-escalation of care discussed even if they declined? (Discuss DNR or withdrawal of care, Hospice)? @ -No What co-morbidities impacted this encounter? (DM, HTN, Smoking, COPD, CAD, Cancer, CVA, Hep., AIDS, mental health diagnosis, sleep apnea, morbid obesity)? @ -None Was patient admitted / discharged? @ -Discharged. Lab work demonstrates mild leukocytosis with a white blood cell count of 11.6. Renal function is fairly stable when compared with prior. CT scan of the abdomen and pelvis demonstrates acute uncomplicated sigmoid diverticulitis. There is no organizing fluid collection or abscess. She was treated with IV fluids, pain medication, and nausea medication. I did offer admission for IV antibiotics and symptom control, however she states that she would rather go home at this time. She was given 1 g of ceftriaxone and 500 mg of Flagyl in the emergency department. Prescription for Augmentin and Zofran provided with dosing instructions reviewed. I was willing to give her a prescription for a 3-day course of [place] as well given the severity of her discomfort. She was given strict return parameters and advised to have close follow-up with her PCP. Patient discharged home in stable condition. Case discussed with ED attending Dr. Ferrara. Return precautions reviewed in depth, the patient is instructed to return to the emergency department with any new, worsening, or concerning symptoms. Patient verbalized understanding. Undiagnosed new problem with uncertain prognosis? @ -None Drug Therapy requiring intensive monitoring for toxicity (Heparin, Nitro, Insulin, Cardizem)? @ -None Were any procedures done? @ -None Diagnosis/symptom? @ -Diverticulitis Acute, or Chronic, or Acute on Chronic? @ -Acute Uncomplicated (without systemic symptoms) or Complicated (systemic symptoms)? @ -Uncomplicated Side effects of treatment? @ -None Exacerbation, Progression, or Severe Exacerbation] @ -Not applicable Poses a threat to life or bodily function? @ -Unlikely - Lab Data Result diagrams: 06/11/24 20:12 06/11/24 20:12 Lab Results 06/11/24 06/11/24 06/11/24 Range/Units 20:12 20:12 20:12 WBC 11.6 H (3.8-10.6) k/uL RBC 4.55 (3.80-5.40) m/uL Hgb 13.8 (11.4-16.0) gm/dL Hct 42.4 (34.0-46.0) % MCV 93.3 (80.0-100.0) fL MCH 30.4 (25.0-35.0) pg MCHC 32.6 (31.0-37.0) g/dL RDW 13.2 (11.5-15.5) % Plt Count 277 (150-450) k/uL MPV 7.1 Neutrophils % 75 % Lymphocytes % 17 % Monocytes % 6 % Eosinophils % 1 % Basophils % 0 % Neutrophils # 8.8 H (1.3-7.7) k/uL Lymphocytes # 2.0 (1.0-4.8) k/uL Monocytes # 0.7 (0-1.0) k/uL Eosinophils # 0.1 (0-0.7) k/uL Basophils # 0.0 (0-0.2) k/uL Sodium 138 (137-145) mmol/L Potassium 4.2 (3.5-5.1) mmol/L Chloride 99 (98-107) mmol/L Carbon Dioxide 28 (22-30) mmol/L Anion Gap 11 mmol/L BUN 35 H (7-17) mg/dL Creatinine 1.29 H (0.52-1.04) mg/dL Est GFR (CKD-EPI)AfAm 49 (>60 ml/min/1.73 sqM) Est GFR (CKD-EPI)NonAf 42 (>60 ml/min/1.73 sqM) Glucose 144 H (74-99) mg/dL Plasma Lactic Acid Romain 1.0 (0.7-2.0) mmol/L Calcium 9.4 (8.4-10.2) mg/dL Total Bilirubin 1.1 (0.2-1.3) mg/dL AST 29 (14-36) U/L ALT 31 (4-34) U/L Alkaline Phosphatase 106 (38-126) U/L Total Protein 7.4 (6.3-8.2) g/dL Albumin 4.4 (3.5-5.0) g/dL Amylase 76 (30-110) U/L Lipase 117 (23-300) U/L - Radiology Data Radiology results: report reviewed, image reviewed Disposition Clinical Impression: Diverticulitis Disposition: HOME SELF-CARE Instructions (If sedation given, give patient instructions): Diverticulitis (ED), Diverticulitis Diet (ED) Additional Instructions: Return to the emergency department with any new, worsening, or concerning symptoms. Take the antibiotic as prescribed for 10 days. Take the [place] sparingly when your pain is the most severe. Take the Zofran up to every 8 hours as needed for nausea and vomiting. Follow up with your primary care provider in 1-2 days. Prescriptions: Amoxic-Pot Clav 875-125Mg [Augmentin 875-125] 1 tab PO Q12HR 10 Days #20 tab HYDROcodone/APAP 5-325MG [[place] 5-325] 1 tab PO Q6HR PRN 3 Days #12 tab PRN Reason: Pain Ondansetron Odt [Zofran Odt] 4 mg PO Q8HR PRN #20 tab PRN Reason: Nausea And Vomiting Is patient prescribed a controlled substance at d/c from ED?: Yes When asked, does pt state using other controlled substances?: No If prescribed controlled substance>3 days was MAPS reviewed?: Prescribed <3 Days Referrals: Vaibhav Singh DO [Primary Care Provider] - 1-2 days Time of Disposition: 23:03
[2024-06-11 20:40] LABS: Basophils % (A) 0 %; Eosinophils # (A) 0.1 k/uL (0-0.7); Eosinophils % (A) 1 %; HCT 42.4 % (34.0-46.0); HGB 13.8 gm/dL (11.4-16.0); Lymphocytes % (A) 17 %; MCH 30.4 pg (25.0-35.0); MCHC 32.6 g/dL (31.0-37.0); MCV 93.3 fL (80.0-100.0); Mean Platelet Volume 7.1; Monocytes # (A) 0.7 k/uL (0-1.0); Monocytes % (A) 6 %; Neutrophils # (A) 8.8 k/uL (1.3-7.7); Neutrophils % (A) 75 %; Platelet Count 277 k/uL (150-450); RBC 4.55 m/uL (3.80-5.40); RDW 13.2 % (11.5-15.5); WBC 11.6 k/uL (3.8-10.6)
[2024-06-11 20:45] LABS: ALT 31 U/L (4-34); AST 29 U/L (14-36); African American GFR (CKD) 49 (>60 ml/min/1.73 sqM); Albumin 4.4 g/dL (3.5-5.0); Alkaline Phosphatase 106 U/L (38-126); Amylase 76 U/L (30-110); Anion Gap 11 mmol/L; Blood Urea Nitrogen 35 mg/dL (7-17); Calcium 9.4 mg/dL (8.4-10.2); Carbon Dioxide 28 mmol/L (22-30); Chloride 99 mmol/L (98-107); Glucose 144 mg/dL (74-99); Lipase 117 U/L (23-300); Non-African American GFR(CKD) 42 (>60 ml/min/1.73 sqM); Potassium 4.2 mmol/L (3.5-5.1); Sodium 138 mmol/L (137-145); Total Bilirubin 1.1 mg/dL (0.2-1.3); Total Protein 7.4 g/dL (6.3-8.2)
--- NOTE | 2024-06-11 21:38 | CT ---
EXAMINATION TYPE: CT abdomen pelvis w con DATE OF EXAM: 06/11/2024 9:19 PM COMPARISON: CT abdomen pelvis most recent from 10/11/2021 CLINICAL INDICATION: Female, 69 years old with history of Lower abdominal pain; Lower abdominal pain with nausea and vomiting. TECHNIQUE: Axial CT abdomen pelvis w con;Sagittal and coronal reformats were created on a separate w orkstation. Contrast used:80ml mL of Isovue 300 with IV Contrast, (none if empty) Oral contrast used: without Oral Contrast (none if empty) CT DLP: 1278.8 mGycm, Automated exposure control for dose reduction was used. FINDINGS: LOWER CHEST: Unremarkable ABDOMEN LIVER: Unremarkable GALLBLADDER AND BILE DUCTS: Unremarkable. PANCREAS: Unremarkable. SPLEEN: Unremarkable. ADRENAL GLANDS: Unremarkable. KIDNEYS AND URETERS: No evidence of hydronephrosis or renal calculus. The ureters are unremarkable. PELVIS BLADDER: No evidence for wall thickening or mass given limitations of exam. REPRODUCTIVE: The uterus is surgically absent. ABDOMEN & PELVIS STOMACH AND BOWEL: Small hiatal hernia, duodenum is unremarkableThere are colonic diverticula present , one of which has adjacent fat stranding changes. The sinus and circumferential wall thickening of t he colon in this region. No organizing fluid collection or evidence of pneumoperitoneum. No evidence of bowel obstruction. PERITONEUM/RETROPERITONEUM: No evidence of pneumoperitoneum or free fluid. VASCULATURE: No evidence of aortic aneurysm. MUSCULOSKELETAL: No acute osseous abnormalities LYMPH NODES: No gross evidence for lymphadenopathy. SOFT TISSUE/ABDOMINAL WALL: Fat-containing umbilical hernia. IMPRESSION: 1. Acute uncomplicated sigmoid diverticulitis/colitis. No organizing fluid collection or abscess at this time 2. Fat-containing umbilical hernia. 3. Small hiatal hernia. [facility], , 06/11/2024 9:35 PM
[2024-06-11] MEDS: MORPHINE SULFATE 4 MG/ML SYRINGE IVP STA (22:27)
[2024-06-11] MEDS: cefTRIAXone IN SWFI 1,000 MG/10 ML SYRINGE IVP STA (22:28)
[2024-06-11] MEDS: ONDANSETRON 4 MG/2 ML VIAL IVP STA (22:28)
[2024-06-11] MEDS: SODIUM CHLORIDE 0.9% 1,000 ML IV ONE (22:28)
[2024-06-11] MEDS: metroNIDAZOLE-NS PMX 500 MG in SALINE 1 100ML.BAG IVPB STA (22:29)
[2024-06-11] MEDS: ONDANSETRON 4 MG ODT STARTER PACK 2 TAB BTL PO STA (23:32)
[2024-06-11] MEDS: ACET/COD 300 MG/30 MG STARTER PACK 6 TAB BTL PO STA (23:32)
== END 2024-06-11 23:48 | disposition home or self-care (01) ==
LOC: EC 19:17
DX: K57.32 Diverticulitis of large intestine without perforation or abscess without bleeding (principal); Z87.891 Personal history of nicotine dependence; Z88.5 Allergy status to narcotic agent
CPT/HCPCS: 36415; 80053; 82150; 83605; 83690; 85025; 74177; 99284; 96365; 96375 ×3; J2270; J2405; J0696; S0119; Q9967; J1836

== ENCOUNTER 2024-07-18 12:26 | Observation (INO) | payer MEDICARE ==
[2024-07-18 12:47] LABS: Glucose,Whole Blood 209 mg/dL (70-110)
[2024-07-18] MEDS: SODIUM CHLORIDE 0.9% 1,000 ML IV SCH ×2 (13:09→16:18)
[2024-07-18] MEDS: MECLIZINE 12.5 MG TAB PO STA (13:11)
[2024-07-18] MEDS: ONDANSETRON 4 MG/2 ML VIAL IVP STA (13:12)
[2024-07-18] MEDS: PANTOPRAZOLE 40 MG/10 ML VIAL IVP STA (13:12)
--- NOTE | 2024-07-18 13:34 | XR ---
Chest, 2 view. CLINICAL INDICATION: Female, 69 years old with history of Weakness COMPARISON: 10/06/2023 TECHNIQUE: PA and lateral views the chest are obtained. FINDINGS: The lungs are clear and there is no consolidative or interstitial opacity. There is no pleural effusion or pneumothorax. The heart, pulmonary vasculature, mediastinum and soraida appear normal. The osseous structures are intact. IMPRESSION: No significant abnormality seen. No acute cardiopulmonary disease. [facility], , 07/18/2024 1:32 PM
[2024-07-18 13:38] LABS: Basophils # (A) 0.05 10*3/uL (0.00-0.10); Basophils % (A) 0.8 %; Eosinophils # (A) 0.09 10*3/uL (0.04-0.35); Eosinophils % (A) 1.4 %; HCT 39.8 % (37.2-46.3); HGB 13.7 g/dL (12.0-15.0); Lymphocytes # (A) 1.38 10*3/uL (0.90-5.00); Lymphocytes % (A) 22.1 %; MCH 31.6 pg (27.0-32.0); MCHC 34.4 g/dL (32.0-37.0); MCV 91.9 fL (80.0-97.0); Mean Platelet Volume 8.9 fL (9.5-12.2); Monocytes # (A) 0.53 10*3/uL (0.20-1.00); Monocytes % (A) 8.5 %; Neutrophils # (A) 4.19 10*3/uL (1.80-7.70); Platelet Count 267 10*3/uL (140-440); RBC 4.33 10*6/uL (4.10-5.20); RDW 13.1 % (11.5-14.5); WBC 6.25 10*3/uL (4.50-10.00)
[2024-07-18 13:53] LABS: ALT 16 U/L (4-34); AST 21 U/L (14-36); African American GFR (CKD) 62 (>60 ml/min/1.73 sqM); Albumin 2.9 g/dL (3.5-5.0); Alkaline Phosphatase 59 U/L (38-126); Anion Gap 10 mmol/L; Blood Urea Nitrogen 18 mg/dL (7-17); Calcium 7.2 mg/dL (8.4-10.2); Carbon Dioxide 21 mmol/L (22-30); Chloride 107 mmol/L (98-107); Glucose 156 mg/dL (74-99); Lipase 88 U/L (23-300); Non-African American GFR(CKD) 54 (>60 ml/min/1.73 sqM); Potassium 2.8 mmol/L (3.5-5.1); Sodium 138 mmol/L (137-145); Total Bilirubin 0.7 mg/dL (0.2-1.3); Total Protein 5.1 g/dL (6.3-8.2)
[2024-07-18 13:58] LABS: INR 0.9 (<1.2); Prothrombin Time 10.4 sec (10.0-12.5)
[2024-07-18 14:05] LABS: Partial Thromboplastin Time 20.2 sec (22.0-30.0)
[2024-07-18 14:14] LABS: Influenza A Not Detected (Not Detectd); Influenza B Not Detected (Not Detectd); RSV Not Detected (Not Detectd)
--- NOTE | 2024-07-18 14:41 | CT ---
EXAMINATION TYPE: CT brain wo con DATE OF EXAM: 07/18/2024 2:35 PM COMPARISON: Previous CT head study 10/06/2023. CLINICAL INDICATION: Female, 69 years old with history of weakness, syncope TECHNIQUE: Brain: Axial CT images of the brain were obtained with coronal and sagittal reformats created and rev iewed. Contrast used: None. Oral contrast used: None. CT DLP: 1078.4 mGycm, Automated exposure control for dose reduction was used. FINDINGS: Brain: Extra-axial spaces: No abnormal extra-axial fluid collections. Ventricular system: Dilatation in proportion to cerebral atrophy. Cerebral parenchyma: No acute intraparenchymal hemorrhage or mass effect. The molina-white junction is well differentiated. Scattered hypoattenuating areas are seen within the white matter. Cerebellum: Unremarkable. Mass effect: No evidence of midline shift. Intracranial vasculature: Atherosclerotic calcifications of the intracranial vessels. Soft tissues: Normal. Calvarium/osseous structures: No depressed skull fracture. Paranasal sinuses and mastoid air cells: Mild scattered paranasal sinus disease. Visualized orbits: Orbital contents are intact. IMPRESSION: No acute intracranial process. [facility], , 07/18/2024 2:38 PM
--- NOTE | 2024-07-18 14:47 | CT ---
EXAMINATION TYPE: CT abdomen pelvis w con DATE OF EXAM: 07/18/2024 2:36 PM COMPARISON: Previous CT study 06/11/2024. CLINICAL INDICATION: Female, 69 years old with history of LLQ abd pain; diverticulitis flare up TECHNIQUE: Axial CT abdomen pelvis w con;Sagittal and coronal reformats were created on a separate w orkstation. Contrast used:80 ml mL of Isovue 300 with IV Contrast, (none if empty) Oral contrast used: without Oral Contrast (none if empty) CT DLP: 1201.3 mGycm, Automated exposure control for dose reduction was used. FINDINGS: LOWER CHEST: Unremarkable ABDOMEN LIVER: Unremarkable GALLBLADDER AND BILE DUCTS: Unremarkable. PANCREAS: Unremarkable. SPLEEN: Unremarkable. ADRENAL GLANDS: Unremarkable. KIDNEYS AND URETERS: No evidence of hydronephrosis or renal calculus. The ureters are unremarkable. Retroaortic left renal vein. PELVIS BLADDER: No evidence for wall thickening or mass given limitations of exam. REPRODUCTIVE: Unremarkable. ABDOMEN & PELVIS STOMACH AND BOWEL: Stomach and duodenum are unremarkable. Small hiatal hernia. No evidence of bowel o bstruction. Diverticulosis. PERITONEUM/RETROPERITONEUM: No evidence of pneumoperitoneum or free fluid. VASCULATURE: No evidence of aortic aneurysm. MUSCULOSKELETAL: No acute osseous abnormalities LYMPH NODES: No gross evidence for lymphadenopathy. SOFT TISSUE/ABDOMINAL WALL: Unremarkable IMPRESSION: No acute abnormality in the abdomen/pelvis. Specifically, colonic diverticulosis without convincing C T evidence of acute diverticulitis. [facility], , 07/18/2024 2:44 PM
[2024-07-18] MEDS ORDERED: ONDANSETRON 4 MG/2 ML VIAL IVP PRN (14:59)
[2024-07-18] MEDS ORDERED: NALOXONE 0.4 MG/ML 1 ML VIAL IV PRN (14:59)
[2024-07-18] MEDS ORDERED: Potassium Replacement Protocol 1 EACH MISC MISCELLANE PRN (14:59)
--- NOTE | 2024-07-18 15:06 | ED ---
General Adult HPI - General Chief complaint: Fall Stated complaint: near-Syncope Time Seen by Provider: 07/18/24 12:45 Source: patient, family, RN notes reviewed, old records reviewed Mode of arrival: wheelchair Limitations: no limitations - History of Present Illness Initial comments: Patient is a 69-year-old female presents emergency department for lightheadedness. She has a history of diverticulitis and has been treated with 2 courses of antibiotics recently. Is currently not on any antibiotics. States she got a shower today and was feeling lightheaded and sat down on the toilet when next and she knew she was on the ground. States she felt faint but does not believe that she had a full syncopal episode. Denies any chest pain or shortness of breath. States her head felt heavy. Denies any headache or blurry vision. Denies fevers, chills, cough. No urinary complaints. Patient is complaining of intermittent constipation which is typical for her, and last night she took numerous laxatives to try to get herself to have a bowel movement which she did. Unknown if this is contributory to her current symptoms. Presents for further evaluation at this time. - Related Data Home Medications Medication Instructions Recorded Confirmed Atorvastatin [Lipitor] 5 mg PO HS 08/28/16 05/07/23 Calcium Carbonate 500 mg PO DAILY 02/06/23 05/07/23 Cholecalciferol (Vitamin D3) 75 mcg PO DAILY 02/06/23 05/07/23 [Vitamin D3 (3000 Iu)] Garlic 1,000 mg PO DAILY 02/06/23 05/07/23 metFORMIN HCL 500 mg PO HS 02/06/23 05/07/23 Previous Rx's Medication Instructions Recorded Meclizine [Antivert] 25 mg PO QID PRN 3 Days #12 tab 02/07/23 amLODIPine [Norvasc] 5 mg PO DAILY #30 tab 02/07/23 cloNIDine HCL [Catapres] 0.1 mg PO BID #30 tab 10/06/23 Amoxic-Pot Clav 875-125Mg 1 tab PO Q12HR 10 Days #20 tab 06/11/24 [Augmentin 875-125] HYDROcodone/APAP 5-325MG [[place] 1 tab PO Q6HR PRN 3 Days #12 tab 06/11/24 5-325] Ondansetron Odt [Zofran Odt] 4 mg PO Q8HR PRN #20 tab 06/11/24 HYDROcodone/APAP 5-325MG [[place] 1 tab PO Q6HR PRN 3 Days #12 tab 06/12/24 5-325] HYDROcodone/APAP 5-325MG [[place] 1 tab PO Q6HR PRN 3 Days #12 tab 06/12/24 5-325] Allergies Allergy/AdvReac Type Severity Reaction Status Date / Time hydromorphone AdvReac Chest Verified 07/18/24 15:02 Pain/JOHNY/Dizzy Review of Systems ROS Statement: Those systems with pertinent positive or pertinent negative responses have been documented in the HPI. Review of Systems: CONST: Denies fever EYES: Denies blurry vision ENT: Denies nasal congestion C/V: Denies Chest pain RESP: Denies shortness of breath GI: Denies abdominal pain : Denies dysuria SKIN: Denies rash. MSK: Denies joint pain. NEURO: Denies headache ROS Other: All systems not noted in ROS Statement are negative. Past Medical History Past Medical History: Hyperlipidemia, Hypertension Additional Past Medical History / Comment(s): INJURY TO LT KNEE History of Any Multi-Drug Resistant Organisms: None Reported Past Surgical History: Orthopedic Surgery Additional Past Surgical History / Comment(s): SURG RT HAND. LT KNEE-ART HROSCOPIC ; LT ROTATOR CUFF REPAIR , COLONOSCOPY. Past Anesthesia/Blood Transfusion Reactions: Previous Problems w/ Anesthesia, Postoperative Nausea & Vomiting (PONV) Past Psychological History: Panic Disorder Smoking Status: Former smoker Past Alcohol Use History: Occasional Past Drug Use History: None Reported - Past Family History Sister(s) Family Medical History: Cancer, Deep Vein Thrombosis (DVT), Myocardial Infarction ([place]) Brother(s) Family Medical History: Cancer General Exam - General Exam Comments Initial Comments: General: Appears in no acute distress. HEAD: Normal with no signs of head trauma. Negative Dailey sign. Negative raccoon eyes. EYES: PERRLA, EOMI, conjunctiva normal, no discharge. Pupils are 3 mm and equal bilaterally. ENT: Hearing grossly intact, normal oropharynx. Mildly dry mucous membranes. RESPIRATORY: Clear breath sounds bilaterally. No wheezes, rales, or rhonchi. C/V: Regular rate and rhythm. S1 and S2 auscultated, no edema, peripheral pulses 2+ and intact throughout ABD: Abd is soft, nontender, nondistended EXT: Normal range of motion, no obvious deformity SKIN: No rashes or lesions observed on exposed skin. NEURO: Alert and oriented x 4. NIH is 0. GCS of 15. No focal deficits. Limitations: no limitations Course Vital Signs 07/18/24 12:30 Temperature 97.5 F L Pulse Rate 97 Respiratory 18 Rate Blood Pressure 112/74 O2 Sat by Pulse 98 Oximetry Medical Decision Making - Medical Decision Making Was pt. sent in by a medical professional or institution (, PA, COLLEGE COUNSELOR, urgent care, hospital, or skilled nursing...) When possible be specific @ -No Did you speak to anyone other than the patient for history (EMS, parent, family, police, friend...)? What history was obtained from this source @ -No Did you review nursing and triage notes (agree or disagree)? Why? @ -I reviewed and agree with nursing and triage notes Were old charts reviewed (outside hosp., previous admission, EMS record, old EKG, old radiological studies, urgent care reports/EKG's, skilled nursing records)? Report findings @ -No old charts were reviewed Differential Diagnosis (chest pain, altered mental status, abdominal pain women, abdominal pain men, vaginal bleeding, weakness, fever, dyspnea, syncope, headache, dizziness, GI bleed, back pain, seizure, CVA, palpatations, mental health, musculoskeletal)? @ -Differential Syncope: Valvular disease, hypertrophic cardiomyopathy, pulmonary embolism, tamponade, tachycardia, bradycardia, SD, hypovolemia, hemorrhage, dissection, anemia, intracranial hemorrhage, seizure, hypoglycemia, carbon monoxide poisoning, this is not meant to be an all-inclusive list. EKG interpreted by me (3pts min.). @ -As above X-rays interpreted by me (1pt min.). @ -Chest x-ray reveals no obvious acute cardiopulmonary process. CT brain reveals no obvious acute intracranial process. CT abdomen pelvis reveals no evidence of acute intra-abdominal process. Diverticulosis redemonstrated. CT interpreted by me (1pt min.). @ -CT brain reveals no obvious acute intracranial process. CT abdomen pelvis reveals no evidence of acute intra-abdominal process. Diverticulosis redemonstrated. U/S interpreted by me (1pt. min.). @ -None done What testing was considered but not performed or refused? (CT, X-rays, U/S, labs)? Why? @ -None What meds were considered but not given or refused? Why? @ -None Did you discuss the management of the patient with other professionals (professionals i.e. , PA, COLLEGE COUNSELOR, lab, RT, psych nurse, social services designee, beater dumper, teacher, seaman officer, telehealth case manager)? Give summary @ -No Was smoking cessation discussed for >3mins.? @ -No Was critical care preformed (if so, how long)? @ -No Were there social determinants of health that impacted care today? How? (Homelessness, low income, unemployed, alcoholism, drug addiction, transport ation, low edu. Level, literacy, decrease access to med. care, senior care, rehab)? @ -No Was there de-escalation of care discussed even if they declined (Discuss DNR or withdrawal of care, Hospice)? DNR status @ -No What co-morbidities impacted this encounter? (DM, HTN, Smoking, COPD, CAD, Cancer, CVA, ARF, Chemo, Hep., AIDS, mental health diagnosis, sleep apnea, morbid obesity)? @ -None Was patient admitted / discharged? Hospital course, mention meds given and route, prescriptions, significant lab abnormalities, going to OR and other pertinent info. @ -Based on patient's presentation physical exam, presents emergency department for near syncopal episode. Does appear clinically dehydrated. Could be related to the excessive laxative use last night. We will obtain basic labs, screen EKG, and after discussion agreed to obtain CT brain as well as abdomen pelvis concerning the left lower quadrant abdominal pain. She was in agreement this plan. Patient be symptomatically treat with IV fluids, Zofran, Protonix. Vital signs are within acceptable limits. EKG shows no signs of acute ischemia. Imaging returned negative for any obvious acute process. Laboratory studies are remarkable for elevated lactic acid of 2.1 likely secondary to the mild dehydration as well as hypokalemia of 2.8 likely related to the laxative use. Viral swabs are within acceptable limits. Due to the patient's age, as well as presenting symptoms, we will admit the patient observation for potassium replenishment which was started as well as IV fluids for dehydration. She was in agreement this plan. She was updated on the results of her workup. I spoke with the admitting provider, Dr. Gasca who accepted the admission. Undiagnosed new problem with uncertain prognosis? @ -No Drug Therapy requiring intensive monitoring for toxicity (Heparin, Nitro, Insulin, Cardizem)? @ -No Were any procedures done? @ -No Diagnosis/symptom? @ -Hypokalemia, dehydration, near syncope Acute, or Chronic, or Acute on Chronic? @ -Acute Uncomplicated (without systemic symptoms) or Complicated (systemic symptoms)? @ -Complicated Side effects of treatment? @ -No Exacerbation, Progression, or Severe Exacerbation? @ -No Poses a threat to life or bodily function? How? (Chest pain, [place], SD, pneumonia, PE, COPD, DKA, ARF, appy, cholecystitis, CVA, Diverticulitis, Homicidal, Suicidal, threat to staff... and all critical care pts) @ -Potentially, yes - Lab Data Result diagrams: 07/18/24 13:17 07/18/24 13:17 Lab Results 07/18/24 07/18/24 07/18/24 Range/Units 12:46 13:17 13:17 WBC 6.25 (4.50-10.00) 10*3/uL RBC 4.33 (4.10-5.20) 10*6/uL Hgb 13.7 (12.0-15.0) g/dL Hct 39.8 (37.2-46.3) % MCV 91.9 (80.0-97.0) fL MCH 31.6 (27.0-32.0) pg MCHC 34.4 (32.0-37.0) g/dL Plt Count 267 (140-440) 10*3/uL MPV 8.9 L (9.5-12.2) fL Immature Gran % (Auto) 0.2 % Neutrophils % 67.0 % Lymphocytes % 22.1 % Monocytes % 8.5 % Eosinophils % 1.4 % Basophils % 0.8 % Immature Gran # 0.01 (0.00-0.04) 10*3/uL Neutrophils # 4.19 (1.80-7.70) 10*3/uL Lymphocytes # 1.38 (0.90-5.00) 10*3/uL Monocytes # 0.53 (0.20-1.00) 10*3/uL Eosinophils # 0.09 (0.04-0.35) 10*3/uL Basophils # 0.05 (0.00-0.10) 10*3/uL PT 10.4 (10.0-12.5) sec INR 0.9 (<1.2) APTT 20.2 L (22.0-30.0) sec Sodium (137-145) mmol/L Potassium (3.5-5.1) mmol/L Chloride (98-107) mmol/L Carbon Dioxide (22-30) mmol/L Anion Gap mmol/L BUN (7-17) mg/dL Creatinine (0.52-1.04) mg/dL Est GFR (CKD-EPI)AfAm (>60 ml/min/1.73 sqM) Est GFR (CKD-EPI)NonAf (>60 ml/min/1.73 sqM) Glucose (74-99) mg/dL POC Glucose (mg/dL) 209 H (70-110) mg/dL POC Glu Production Repairer ID Murcia [place] Plasma Lactic Acid Romain (0.7-2.0) mmol/L Calcium (8.4-10.2) mg/dL Magnesium (1.6-2.3) mg/dL Total Bilirubin (0.2-1.3) mg/dL AST (14-36) U/L ALT (4-34) U/L Alkaline Phosphatase (38-126) U/L Total Protein (6.3-8.2) g/dL Albumin (3.5-5.0) g/dL Lipase (23-300) U/L Influenza Type A (PCR) (Not Detectd) Influenza Type B (PCR) (Not Detectd) RSV (PCR) (Not Detectd) SARS-CoV-2 (PCR) (Not Detectd) 07/18/24 07/18/24 07/18/24 Range/Units 13:17 13:17 13:17 WBC (4.50-10.00) 10*3/uL RBC (4.10-5.20) 10*6/uL Hgb (12.0-15.0) g/dL Hct (37.2-46.3) % MCV (80.0-97.0) fL MCH (27.0-32.0) pg MCHC (32.0-37.0) g/dL Plt Count (140-440) 10*3/uL MPV (9.5-12.2) fL Immature Gran % (Auto) % Neutrophils % % Lymphocytes % % Monocytes % % Eosinophils % % Basophils % % Immature Gran # (0.00-0.04) 10*3/uL Neutrophils # (1.80-7.70) 10*3/uL Lymphocytes # (0.90-5.00) 10*3/uL Monocytes # (0.20-1.00) 10*3/uL Eosinophils # (0.04-0.35) 10*3/uL Basophils # (0.00-0.10) 10*3/uL PT (10.0-12.5) sec INR (<1.2) APTT (22.0-30.0) sec Sodium 138 (137-145) mmol/L Potassium 2.8 L (3.5-5.1) mmol/L Chloride 107 (98-107) mmol/L Carbon Dioxide 21 L (22-30) mmol/L Anion Gap 10 mmol/L BUN 18 H (7-17) mg/dL Creatinine 1.06 H (0.52-1.04) mg/dL Est GFR (CKD-EPI)AfAm 62 (>60 ml/min/1.73 sqM) Est GFR (CKD-EPI)NonAf 54 (>60 ml/min/1.73 sqM) Glucose 156 H (74-99) mg/dL POC Glucose (mg/dL) (70-110) mg/dL POC Glu Production Repairer ID Plasma Lactic Acid Romain 2.1 H* (0.7-2.0) mmol/L Calcium 7.2 L (8.4-10.2) mg/dL Magnesium 2.0 (1.6-2.3) mg/dL Total Bilirubin 0.7 (0.2-1.3) mg/dL AST 21 (14-36) U/L ALT 16 (4-34) U/L Alkaline Phosphatase 59 (38-126) U/L Total Protein 5.1 L (6.3-8.2) g/dL Albumin 2.9 L (3.5-5.0) g/dL Lipase 88 (23-300) U/L Influenza Type A (PCR) Not Detected (Not Detectd) Influenza Type B (PCR) Not Detected (Not Detectd) RSV (PCR) Not Detected (Not Detectd) SARS-CoV-2 (PCR) Not Detected (Not Detectd) - EKG Data -: EKG Interpreted by Me EKG Comments: 12-lead Electrocardiogram Interpretation Note EKG was reviewed and interpreted by myself. 12-lead ECG performed at 1245 is interpreted by me as revealing normal sinus rhythm at a rate of 61 beats per minute. [place] is normal. HI interval is 185 ms, QRS durations 89 ms, QTc is 407 ms.. There were no ST or T wave abnormalities to suggest myocardial ischemia or injury. R wave progression across the precordium was satisfactory. By my interpretation this EKG is non-diagnostic for acute ischemia. Disposition Clinical Impression: Near syncope, Dehydration, Hypokalemia Disposition: ADMITTED IP TO THIS HOSP Condition: Stable Referrals: Vaibhav Singh DO [Primary Care Provider] - 1-2 days Time of Disposition: 15:05
[2024-07-18] MEDS: POTASSIUM CHLORIDE ER 20 MEQ TAB.ER PO SCH (15:16)
[2024-07-18 15:32] LABS: Appearance,Urine Clear (Clear); Bilirubin,Urine Negative (Negative); Blood,Urine Moderate (Negative); Color,Urine Colorless; Glucose,Urine (UA) Negative (Negative); Ketones,Urine Negative (Negative); Leukocyte Esterase,Urine Negative (Negative); Nitrite,Urine Negative (Negative); Protein,Urine Negative (Negative); RBC,Urine 3 /hpf (0-5); Specific Gravity,Urine 1.017 (1.001-1.035); Squamous Epithelial Cell,Urine <1 /hpf (0-4); Urobilinogen,Urine <2.0 mg/dL (<2.0); WBC,Urine 3 /hpf (0-5)
[2024-07-18] MEDS ORDERED: DEXTROSE 50% SYRINGE 50 ML IVP PRN ×2 (18:47)
--- NOTE | 2024-07-18 18:49 | P.HPIM ---
History of Present Illness H&P Date: 07/18/24 Chief Complaint: Dizziness Patient is a 69-year-old female with a past medical history of diabetes type 2 [id number], hypertension, hyperlipidemia, prior history of smoking and alcohol use was brought to the hospital due to complaints of dizziness and lightheadedness. Patient states that she got out of shower and felt lightheaded and dizzy and near syncopal and sat down on the toilet and the next thing she knew she was on the ground. Patient does not think she lost of consciousness. Denied any palpitations. No chest pain or shortness of breath. Denied any focal weakness. Her head felt heavy otherwise. Patient states that she was diagnosed with diverticulitis about a month ago and completed antibiotic course. Recently she followed with general surgery as an outpatient. Patient was still having left lower quadrant abdominal pain. She was given another course of antibiotic which she completed recently. She has been having constipation for the past 3 to 4 days. She did take multiple stool softeners and laxatives and had a good bowel meant yesterday with loose stools. Patient not having good appetite and is not eating well. Denied any fever or chills. No cough or sputum production. She still complains of external left- sided abdominal pain. Chest x-ray showed no significant abnormality seen. No acute cardiopulmonary disease. CT head showed no acute intracranial process. CT of the abdomen pelvis showed no acute abnormality in the abdomen/pelvis. Subsequently colonic diverticulosis without convincing CT evidence of acute diverticulitis. No evidence for gallbladder wall thickening. No evidence of hydronephrosis or renal calculus. EKG showed sinus rhythm Laboratory showed WBC 6.25 hemoglobin 13.7 and platelets 267 Sodium 138 potassium 2.8, chloride 107 bicarb is 21 BUN 18 and creatinine 1.06 and blood sugar 156 lactic acid 2.1 calcium 7.2 lipase 88 Urinalysis is negative for infection. Review of Systems Constitutional: Patient denies any fever or chills . No generalized weakness or weight loss. Abdomen: Patient denied nausea vomiting and diarrhea and abdominal pain. Cardiovascular: Patient denies any chest pain or short of breath no palpitations. Respiratory: patient denied any cough or sputum production. No shortness of breath Neurologic: Patient denied any numbness or tingling. no headache. Dizziness and lightheaded. Musculoskeletal: Patient denies any complaints of joint swelling or deformity. Skin: Negative Psychiatric: Negative Endocrine: No heat or cold intolerance. No recent weight gain. Genitourinary: No dysuria or hematuria. All other 14 point ROS negative except the above Past Medical History Past Medical History: Diabetes Mellitus, Hyperlipidemia, Hypertension Additional Past Medical History / Comment(s): INJURY TO LT KNEE, type 2 diabetes and pt takes metformin and checks blood sugar once in the morning prior to eating breakfast. decreased kidney function and follows with PCP. History of Any Multi-Drug Resistant Organisms: None Reported Past Surgical History: Orthopedic Surgery Additional Past Surgical History / Comment(s): SURG RT HAND. LT KNEE- ARTHROSCOPIC ; LT ROTATOR CUFF REPAIR , COLONOSCOPY. Past Anesthesia/Blood Transfusion Reactions: Previous Problems w/ Anesthesia, Postoperative Nausea & Vomiting (PONV) Smoking Status: Former smoker - Past Family History Sister(s) Family Medical History: Cancer, Deep Vein Thrombosis (DVT), Myocardial Infarction ([place]) Brother(s) Family Medical History: Cancer Medications and Allergies Home Medications Medication Instructions Recorded Confirmed Type Atorvastatin [Lipitor] 5 mg PO HS 08/28/16 07/18/24 History Calcium Carbonate 500 mg PO DAILY 02/06/23 07/18/24 History Garlic 1,000 mg PO DAILY 02/06/23 07/18/24 History metFORMIN HCL 500 mg PO HS 02/06/23 07/18/24 History Losartan [Cozaar] 25 mg PO DAILY 07/18/24 07/18/24 History Vitamin D3(Unknown Dose) 1 tab PO DAILY 07/18/24 07/18/24 History Allergies Allergy/AdvReac Type Severity Reaction Status Date / Time hydromorphone AdvReac Chest Verified 07/18/24 15:02 Pain/JOHNY/Dizzy Physical Exam Vitals: Vital Signs Temp Pulse Pulse Resp BP BP Pulse Ox 07/18/24 18:05 98.1 F 69 16 144/79 96 07/18/24 18:00 98.1 F 63 16 145/77 97 07/18/24 17:22 97.7 F 82 16 122/61 99 07/18/24 16:22 86 16 130/64 98 07/18/24 12:30 97.5 F L 97 18 112/74 98 Intake and Output 07/18/24 07/18/24 07/18/24 06:59 14:59 22:59 Other: Weight 78.471 kg 78.471 kg PHYSICAL EXAMINATION: Patient is lying in the bed comfortably, no acute distress, awake alert and oriented.. HEENT: Normocephalic. Neck is supple. Pupils reactive. Nostrils clear. Oral cavity is moist. Neck reveals no JVD, carotid bruits, or thyromegaly. CHEST EXAMINATION: Trachea is central. Symmetrical expansion. Lung montoya clear to auscultation and percussion. CARDIAC: Normal S1, S2 with no gallops. No murmurs ABDOMEN: Soft. Bowel sounds normal. No organomegaly. No abdominal bruits. Extremities: reveal no edema. No clubbing or cyanosis Neurologically awake, alert, oriented x3 with well-coordinated movements. No focal deficits noted Skin: No rash or skin lesions. Psychiatric: Coperative. Nonsuicidal Musculoskeletal: No joint swelling or deformity. Normal range of motion. Results CBC & Chem 7: 07/18/24 13:17 07/18/24 13:17 Labs: Abnormal Lab Results - Last 24 Hours (Table) 07/18/24 07/18/24 07/18/24 Range/Units 12:46 13:17 13:17 MPV 8.9 L (9.5-12.2) fL APTT 20.2 L (22.0-30.0) sec Potassium (3.5-5.1) mmol/L Carbon Dioxide (22-30) mmol/L BUN (7-17) mg/dL Creatinine (0.52-1.04) mg/dL Glucose (74-99) mg/dL POC Glucose (mg/dL) 209 H (70-110) mg/dL Plasma Lactic Acid Romain (0.7-2.0) mmol/L Calcium (8.4-10.2) mg/dL Total Protein (6.3-8.2) g/dL Albumin (3.5-5.0) g/dL Urine Blood (Negative) 07/18/24 07/18/24 07/18/24 Range/Units 13:17 13:17 15:18 MPV (9.5-12.2) fL APTT (22.0-30.0) sec Potassium 2.8 L (3.5-5.1) mmol/L Carbon Dioxide 21 L (22-30) mmol/L BUN 18 H (7-17) mg/dL Creatinine 1.06 H (0.52-1.04) mg/dL Glucose 156 H (74-99) mg/dL POC Glucose (mg/dL) (70-110) mg/dL Plasma Lactic Acid Romain 2.1 H* (0.7-2.0) mmol/L Calcium 7.2 L (8.4-10.2) mg/dL Total Protein 5.1 L (6.3-8.2) g/dL Albumin 2.9 L (3.5-5.0) g/dL Urine Blood Moderate H (Negative) Thrombosis Risk Factor Assmnt - DVT/VTE Prophylaxis DVT/VTE Prophylaxis: Pharmacologic Prophylaxis ordered - Choose All That Apply Any of the Below Risk Factors Present?: Yes Each Factor Represents 1 point: Obesity (BMI >25), Swollen legs (current) Each Risk Factor Represents 2 Points: Age 61-74 years Each Risk Factor Represents 3 Points: Family history of DVT/PE Thrombosis Risk Factor Assessment Total Risk Factor Score: 7 Thrombosis Risk Factor Assessment Level: High Risk Assessment and Plan Assessment: Dizziness and near syncopal episode likely due to dehydration/orthostatic hypotension. Severe hypokalemia potassium 2.8 Diabetes type 2 uncontrolled with hyperglycemia Lactic acidosis 2.0 on admission Recent history of diverticulitis status post antibiotic course Constipation Hypertension Hyperlipidemia Prior history of smoking and alcohol use GI and DVT prophylaxis with PPI and Lovenox subcu Plan: Patient will be continued on IV hydration with normal saline. Replace potassium and repeat level. Continue with insulin sliding scale for better blood sugar control. Orthostatic vitals were ordered. Continue to follow closely and symptomatic nomi woodruff.. Time with Patient: Greater than 30
[2024-07-18] MEDS: POTASSIUM CHLORIDE 20 MEQ in WATER FOR INJECTION 1 100ML.BAG IVPB STA (19:35)
[2024-07-18] MEDS: ACETAMINOPHEN TAB 325 MG TAB PO PRN (20:09)
[2024-07-18 20:43] LABS: Glucose,Whole Blood 113 mg/dL (70-110)
[2024-07-18] MEDS: metFORMIN 500 MG TAB PO SCH (21:02)
[2024-07-18] MEDS: ATORVASTATIN 10 MG TAB PO SCH (21:02)
[2024-07-18] MEDS: INSULIN LISPRO (HumaLOG) 100 UNIT/ML 10 mL VL SQ SCH (21:03)
[2024-07-19 07:18] LABS: Glucose,Whole Blood 92 mg/dL (70-110)
[2024-07-19 07:51] VITALS: RESP 18
[2024-07-19] MEDS: PANTOPRAZOLE 40 MG/10 ML VIAL IV SCH (08:13)
[2024-07-19] MEDS: ENOXAPARIN 40 MG/0.4 ML SYRINGE SQ SCH (08:13)
[2024-07-19] MEDS: LOSARTAN 25 MG TAB PO SCH (08:13)
[2024-07-19 09:04] LABS: Basophils # (A) 0.06 X 10*3/uL (0.00-0.10); Eosinophils # (A) 0.21 X 10*3/uL (0.04-0.35); Eosinophils % (A) 3.4 %; HCT 37.7 % (37.2-46.3); HGB 12.1 g/dL (12.0-15.0); Lymphocytes % (A) 35.8 %; MCH 30.9 pg (27.0-32.0); MCHC 32.1 g/dL (32.0-37.0); MCV 96.2 FL (80.0-97.0); Mean Platelet Volume 9.5 FL (9.5-12.2); Monocytes # (A) 0.73 X 10*3/uL (0.20-1.00); Monocytes % (A) 11.9 %; NRBC Per 100 WBC 0 X 10*3/uL (0.00-0.01); Neutrophils # (A) 2.93 X 10*3/uL (1.80-7.70); Neutrophils % (A) 47.7 %; Platelet Count 216 X 10*3/uL (140-440); RBC 3.92 X 10*6/uL (4.10-5.20); RDW 13.4 % (11.5-14.5); WBC 6.14 X 10*3/uL (4.50-10.00)
[2024-07-19 09:13] LABS: ALT 19 U/L (8-44); AST 22 U/L (13-35); Albumin 3.6 g/dL (3.8-4.9); Albumin/Globulin Ratio 1.89 Ratio (1.60-3.17); Alkaline Phosphatase 66 U/L (41-126); BUN/Creat Ratio 14.67 Ratio (12.00-20.00); Blood Urea Nitrogen 17.6 mg/dL (9.0-27.0); Calcium 8.4 mg/dL (8.7-10.3); Carbon Dioxide 21.6 mmol/L (21.6-31.8); Chloride 111 mmol/L (96-109); Globulin 1.9 g/dL (1.6-3.3); Glucose 86 mg/dL (70-110); Potassium 4.9 mmol/L (3.5-5.5); Sodium 142 mmol/L (135-145); Total Bilirubin 0.4 mg/dL (0.3-1.2); Total Protein 5.5 g/dL (6.2-8.2)
[2024-07-19 12:24] LABS: Glucose,Whole Blood 94 mg/dL (70-110)
--- NOTE | 2024-07-19 12:51 | P.GSCN ---
History of Present Illness Consult date: 07/19/24 History of present illness: CHIEF COMPLAINT: Passed out HISTORY OF PRESENT ILLNESS: This is a 69-year-old female who reports having issues with constipation. She reports taking milk of mag and then an hour later a Dulcolax. She reports that she showered and then had to sit on the toilet to have bowel movements and then passed out. Patient reports having multiple s tools. She currently denies any abdominal pain. She did come into the ER on June 11 for diverticulitis and was treated with antibiotics. She did have her follow-up with Dr. Zapata and he recommended outpatient colonoscopy in July. CT scan abdomen pelvis for this admission shows no diverticulitis. June 2021 was her last colonoscopy that had reported external and internal hemorrhoids and a rectal polyp. Patient is tolerating regular diet. PAST MEDICAL HISTORY: See below PAST SURGICAL HISTORY: See below MEDICATIONS: See below ALLERGIES: See below SOCIAL HISTORY: No illicit drug use. REVIEW OF SYSTEMS: CONSTITUTIONAL: Denies fever or chills. HEENT: Denies blurred vision, vision changes, or eye pain. Denies hemoptysis CARDIOVASCULAR: Denies chest pain or pressure. RESPIRATORY: No shortness of breath. GASTROINTESTINAL: See HPI for pertinent findings HEMATOLOGIC: Denies bleeding disorders. GENITOURINARY: Denies any blood in urine or increased urinary frequency. SKIN: Denies pruitis. Denies rash. PHYSICAL EXAM: VITAL SIGNS: Reviewed GENERAL: Well-developed in no acute distress. HEENT: No sclera icterus. Extraocular movements grossly intact. Moist buccal mucosa. Head is atraumatic, normocephalic. No nasal drainage. ABDOMEN: Soft. Nondistended. Nontender NEUROLOGIC: Alert and oriented. Cranial nerves II through XII grossly intact. LABORATORY DATA: WBC 6.14 Hgb 12.1 platelets 216 Sodium 142 potassium 2.8 up to 4.9 creatinine 1.2 IMAGING: CT scan abdomen pelvis reports no acute abnormality in the abdomen pelvis. Colonic diverticulosis without diverticulitis. ASSESSMENT: 1. Recent diverticulitis improved after outpatient antibiotics. No evidence of diverticulitis on CAT scan for this admission. Denies abdominal pain 2. Syncope 3. Dehydration 4. Constipation PLAN: - Continue regular diet - Recommend outpatient colonoscopy. Colonoscopy scheduled for July 2024 - Recommend staying on a good bowel regimen and benefiber Physician [employer] note has been reviewed by physician. Signing provider agrees with the documented findings, assessment, and plan of care. Past Medical History Past Medical History: Diabetes Mellitus, Hyperlipidemia, Hypertension Additional Past Medical History / Comment(s): INJURY TO LT KNEE, type 2 diabetes and pt takes metformin and checks blood sugar once in the morning prior to eating breakfast. decreased kidney function and follows with PCP. History of Any Multi-Drug Resistant Organisms: None Reported Past Surgical History: Orthopedic Surgery Additional Past Surgical History / Comment(s): SURG RT HAND. LT KNEE- ARTHROSCOPIC ; LT ROTATOR CUFF REPAIR , COLONOSCOPY. Past Anesthesia/Blood Transfusion Reactions: Previous Problems w/ Anesthesia, Postoperative Nausea & Vomiting (PONV) Smoking Status: Former smoker - Past Family History Sister(s) Family Medical History: Cancer, Deep Vein Thrombosis (DVT), Myocardial Infarction ([place]) Brother(s) Family Medical History: Cancer Medications and Allergies Home Medications Medication Instructions Recorded Confirmed Type Atorvastatin [Lipitor] 5 mg PO HS 08/28/16 07/18/24 History Calcium Carbonate 500 mg PO DAILY 02/06/23 07/18/24 History Garlic 1,000 mg PO DAILY 02/06/23 07/18/24 History metFORMIN HCL 500 mg PO HS 02/06/23 07/18/24 History Losartan [Cozaar] 25 mg PO DAILY 07/18/24 07/18/24 History Vitamin D3(Unknown Dose) 1 tab PO DAILY 07/18/24 07/18/24 History Allergies Allergy/AdvReac Type Severity Reaction Status Date / Time hydromorphone AdvReac Chest Verified 07/18/24 15:02 Pain/JOHNY/Dizzy Surgical - Exam Vital Signs Temp Pulse Resp BP Pulse Ox 97.5 F L 97 18 112/74 98 07/18/24 12:30 07/18/24 12:30 07/18/24 12:30 07/18/24 12:30 07/18/24 12:30 Results - Labs 07/19/24 04:49 07/19/24 04:49 Abnormal Lab Results - Last 24 Hours (Table) 07/18/24 07/18/24 07/18/24 Range/Units 12:46 13:17 13:17 RBC (4.10-5.20) X 10*6/uL MPV 8.9 L (9.5-12.2) fL APTT 20.2 L (22.0-30.0) sec Potassium (3.5-5.1) mmol/L Chloride (96-109) mmol/L Carbon Dioxide (22-30) mmol/L BUN (7-17) mg/dL Creatinine (0.52-1.04) mg/dL Est GFR (CKD-EPI) (>=60) Glucose (74-99) mg/dL POC Glucose (mg/dL) 209 H (70-110) mg/dL Hemoglobin A1c (<=6.0) % Plasma Lactic Acid Romain (0.7-2.0) mmol/L Calcium (8.4-10.2) mg/dL Total Protein (6.3-8.2) g/dL Albumin (3.5-5.0) g/dL Urine Blood (Negative) 07/18/24 07/18/24 07/18/24 Range/Units 13:17 13:17 13:17 RBC (4.10-5.20) X 10*6/uL MPV (9.5-12.2) fL APTT (22.0-30.0) sec Potassium 2.8 L (3.5-5.1) mmol/L Chloride (96-109) mmol/L Carbon Dioxide 21 L (22-30) mmol/L BUN 18 H (7-17) mg/dL Creatinine 1.06 H (0.52-1.04) mg/dL Est GFR (CKD-EPI) (>=60) Glucose 156 H (74-99) mg/dL POC Glucose (mg/dL) (70-110) mg/dL Hemoglobin A1c 6.2 H (<=6.0) % Plasma Lactic Acid Romain 2.1 H* (0.7-2.0) mmol/L Calcium 7.2 L (8.4-10.2) mg/dL Total Protein 5.1 L (6.3-8.2) g/dL Albumin 2.9 L (3.5-5.0) g/dL Urine Blood (Negative) 07/18/24 07/18/24 07/19/24 Range/Units 15:18 20:41 04:49 RBC (4.10-5.20) X 10*6/uL MPV (9.5-12.2) fL APTT (22.0-30.0) sec Potassium (3.5-5.1) mmol/L Chloride 111 H (96-109) mmol/L Carbon Dioxide (22-30) mmol/L BUN (7-17) mg/dL Creatinine (0.52-1.04) mg/dL Est GFR (CKD-EPI) 49 L (>=60) Glucose (74-99) mg/dL POC Glucose (mg/dL) 113 H (70-110) mg/dL Hemoglobin A1c (<=6.0) % Plasma Lactic Acid Romain (0.7-2.0) mmol/L Calcium 8.4 L (8.4-10.2) mg/dL Total Protein 5.5 L (6.3-8.2) g/dL Albumin 3.6 L (3.5-5.0) g/dL Urine Blood Moderate H (Negative) 07/19/24 Range/Units 04:49 RBC 3.92 L (4.10-5.20) X 10*6/uL MPV (9.5-12.2) fL APTT (22.0-30.0) sec Potassium (3.5-5.1) mmol/L Chloride (96-109) mmol/L Carbon Dioxide (22-30) mmol/L BUN (7-17) mg/dL Creatinine (0.52-1.04) mg/dL Est GFR (CKD-EPI) (>=60) Glucose (74-99) mg/dL POC Glucose (mg/dL) (70-110) mg/dL Hemoglobin A1c (<=6.0) % Plasma Lactic Acid Romain (0.7-2.0) mmol/L Calcium (8.4-10.2) mg/dL Total Protein (6.3-8.2) g/dL Albumin (3.5-5.0) g/dL Urine Blood (Negative) Diabetes panel 07/18/24 07/18/24 07/19/24 Range/Units 13:17 13:17 04:49 Sodium 138 142 (137-145) mmol/L Potassium 2.8 L 4.9 (3.5-5.1) mmol/L Chloride 107 111 H (98-107) mmol/L Carbon Dioxide 21 L 21.6 (22-30) mmol/L BUN 18 H 17.6 (7-17) mg/dL Creatinine 1.06 H 1.2 (0.52-1.04) mg/dL Glucose 156 H 86 (74-99) mg/dL Hemoglobin A1c 6.2 H (<=6.0) % Calcium 7.2 L 8.4 L (8.4-10.2) mg/dL AST 21 22 (14-36) U/L ALT 16 19 (4-34) U/L Alkaline Phosphatase 59 66 (38-126) U/L Total Protein 5.1 L 5.5 L (6.3-8.2) g/dL Albumin 2.9 L 3.6 L (3.5-5.0) g/dL Thyroid panel 07/19/24 Range/Units 04:49 TSH 0.502 (0.350-5.500) UIU/ML Calcium panel 07/18/24 07/19/24 Range/Units 13:17 04:49 Calcium 7.2 L 8.4 L (8.4-10.2) mg/dL Albumin 2.9 L 3.6 L (3.5-5.0) g/dL Pituitary panel 07/18/24 07/19/24 Range/Units 13:17 04:49 Sodium 138 142 (137-145) mmol/L Potassium 2.8 L 4.9 (3.5-5.1) mmol/L Chloride 107 111 H (98-107) mmol/L Carbon Dioxide 21 L 21.6 (22-30) mmol/L BUN 18 H 17.6 (7-17) mg/dL Creatinine 1.06 H 1.2 (0.52-1.04) mg/dL Glucose 156 H 86 (74-99) mg/dL Calcium 7.2 L 8.4 L (8.4-10.2) mg/dL TSH 0.502 (0.350-5.500) UIU/ML Adrenal panel 07/18/24 07/19/24 Range/Units 13:17 04:49 Sodium 138 142 (137-145) mmol/L Potassium 2.8 L 4.9 (3.5-5.1) mmol/L Chloride 107 111 H (98-107) mmol/L Carbon Dioxide 21 L 21.6 (22-30) mmol/L BUN 18 H 17.6 (7-17) mg/dL Creatinine 1.06 H 1.2 (0.52-1.04) mg/dL Glucose 156 H 86 (74-99) mg/dL Calcium 7.2 L 8.4 L (8.4-10.2) mg/dL Total Bilirubin 0.7 0.4 (0.2-1.3) mg/dL AST 21 22 (14-36) U/L ALT 16 19 (4-34) U/L Alkaline Phosphatase 59 66 (38-126) U/L Total Protein 5.1 L 5.5 L (6.3-8.2) g/dL Albumin 2.9 L 3.6 L (3.5-5.0) g/dL
[2024-07-19 13:02] VITALS: TEMP 97.4
[2024-07-19 14:24] VITALS: PULSE 67
[2024-07-19 14:25] VITALS: BP 130/77
[2024-07-20] MEDS ORDERED: PANTOPRAZOLE 40 MG TABLET PO SCH (07:30)
== END 2024-07-19 16:42 | disposition home or self-care (01) ==
LOC: EC 12:26 → 6NMEDSUR 14:59 → 5NMEDONC 15:53
PROVIDERS: ADMIT Family Medicine; ATTEND Family Medicine
DX: R55 Syncope and collapse (principal); E86.0 Dehydration; E87.6 Hypokalemia; K59.00 Constipation, unspecified; E11.65 Type 2 diabetes mellitus with hyperglycemia; E87.20 Acidosis, unspecified; I10 Essential (primary) hypertension; E78.5 Hyperlipidemia, unspecified; F41.0 Panic disorder [episodic paroxysmal anxiety]; Z11.52 Encounter for screening for COVID-19; Z87.891 Personal history of nicotine dependence; Z79.84 Long term (current) use of oral hypoglycemic drugs; Z79.899 Other long term (current) drug therapy; Z88.5 Allergy status to narcotic agent
CPT/HCPCS: 96376; 96365; 96366; 96372; 96361; 96375; 99285; 36415; 94760; 93005; 80053 ×2; 84443; 83605; 83690; 83735; 84484; 85025 ×2; 85610; 85730; 81001; 83036; 87636; 71046; 70450; 74177; G0378 ×2; J3480; J2405; J1650; Q9967; J2470 ×2

== ENCOUNTER 2024-07-29 06:45 | Day surgery (SDC) | payer MEDICARE ==
[2024-07-29] MEDS: IV FLUID CONTINUATION 1,000 ML IV ONE (07:12)
[2024-07-29] MEDS: LACTATED RINGERS 1,000 ML IV SCH (07:21)
[2024-07-29 07:24] VITALS: TEMP 97.2
[2024-07-29 07:37] LABS: Glucose,Whole Blood 96 mg/dL (70-110)
[2024-07-29] MEDS ORDERED: PROPOFOL 10 MG/ML 20 ML VIAL IV ONE (07:37)
[2024-07-29 08:03] VITALS: RESP 18
--- NOTE | 2024-07-29 08:03 | P.OP ---
Date of Procedure: 07/29/24 Preoperative Diagnosis: Diverticulitis Postoperative Diagnosis: Diverticulosis Rectal polyp Procedure(s) Performed: Colonoscopy Anesthesia: MAC Surgeon: Geovanny Zapata Pathology: other (Rectal polyp) Condition: stable Disposition: PACU Description of Procedure: The patient was placed on the operative table in the lateral position after receiving IV sedation. Digital rectal exam was performed. This revealed no abnormalities. The flexible colonoscope was then placed patient anus passed throughout the entire colon. The ileocecal valve was visualized. The cecum appeared normal. The ascending colon appeared normal. In the transverse colon there is a few scattered diverticuli. In the descending sigmoid colon there was more extensive diverticular changes seen. The scope was back the rectum this appeared normal except for a small sessile polyp. This removed with a cold forcep. The scope was withdrawn for the patient.
[2024-07-29 08:15] VITALS: BP 139/67; PULSE 73
== END 2024-07-29 09:17 | disposition home or self-care (01) ==
LOC: ORWHC2ENDO 06:45
PROVIDERS: ATTEND Surgery
DX: K62.1 Rectal polyp (principal); K57.30 Diverticulosis of large intestine without perforation or abscess without bleeding; I10 Essential (primary) hypertension; E11.9 Type 2 diabetes mellitus without complications; E78.5 Hyperlipidemia, unspecified; E86.0 Dehydration; R55 Syncope and collapse; N28.9 Disorder of kidney and ureter, unspecified; Z91.89 Other specified personal risk factors, not elsewhere classified; Z79.84 Long term (current) use of oral hypoglycemic drugs; Z79.899 Other long term (current) drug therapy; Z87.891 Personal history of nicotine dependence; Z86.0100 Personal history of colon polyps, unspecified; Z87.19 Personal history of other diseases of the digestive system
CPT/HCPCS: 88305; 45380; J2704

== ENCOUNTER 2024-10-11 09:06 | Emergency (ER) | payer MEDICARE ==
[2024-10-11 09:12] VITALS: TEMP 98
--- NOTE | 2024-10-11 09:48 | ED ---
General Adult HPI - General Chief complaint: Dizziness Stated complaint: dizziness,weakness Time Seen by Provider: 10/11/24 09:12 Source: patient, RN notes reviewed, old records reviewed Mode of arrival: ambulatory Limitations: no limitations - History of Present Illness Initial comments: 69-year-old female presenting for evaluation of dizziness, lightheadedness. Patient states she does have a history of vertigo and states this is somewhat similar. Patient denies headache. Denies chest pain or abdominal pain currently. No vomiting. Symptoms have been present over the past several days and she has noted her blood pressure to be elevated. - Related Data Home Medications Medication Instructions Recorded Confirmed Atorvastatin [Lipitor] 5 mg PO HS 08/28/16 10/11/24 metFORMIN HCL 500 mg PO HS 02/06/23 10/11/24 Losartan [Cozaar] 25 mg PO DAILY 07/18/24 10/11/24 Vitamin D3(Unknown Dose) 1 tab PO DAILY 07/18/24 10/11/24 Calcium(Unknown Dose) 1 tab PO DAILY 10/11/24 10/11/24 Previous Rx's Medication Instructions Recorded Losartan [Cozaar] 50 mg PO DAILY 30 Days #30 tab 10/11/24 Allergies Allergy/AdvReac Type Severity Reaction Status Date / Time hydromorphone AdvReac Chest Verified 10/11/24 11:22 Pain/JOHNY/Dizzy Review of Systems ROS Statement: Those systems with pertinent positive or pertinent negative responses have been documented in the HPI. ROS Other: All systems not noted in ROS Statement are negative. Past Medical History Past Medical History: Diabetes Mellitus, Hyperlipidemia, Hypertension Additional Past Medical History / Comment(s): INJURY TO LT KNEE, type 2 diabetes and pt takes metformin and checks blood sugar once in the morning prior to eating breakfast. decreased kidney function and follows with PCP. History of Any Multi-Drug Resistant Organisms: None Reported Past Surgical History: Orthopedic Surgery Additional Past Surgical History / Comment(s): SURG RT HAND. LT KNEE-ARTHROSCOPIC ; LT ROTATOR CUFF REPAIR ,COLONOSCOPY, Rt. foot tendon repair Past Anesthesia/Blood Transfusion Reactions: No Reported Reaction, Postoperative Nausea & Vomiting (PONV) Past Psychological History: Panic Disorder Smoking Status: Former smoker Past Alcohol Use History: Occasional Past Drug Use History: None Reported - Past Family History Sister(s) Family Medical History: Cancer, Deep Vein Thrombosis (DVT), Myocardial Infarction (VT) Additional Family Medical History / Comment(s): 3 sisters had cancer and 2 haved Brother(s) Family Medical History: Cancer General Exam Limitations: no limitations General appearance: alert, in no apparent distress Head exam: Present: atraumatic, normocephalic Eye exam: Present: normal appearance, PERRL, EOMI ENT exam: Present: mucous membranes dry Neck exam: Present: normal inspection. Absent: tenderness, meningismus Respiratory exam: Present: normal lung sounds bilaterally. Absent: respiratory distress, wheezes Cardiovascular Exam: Present: regular rate, normal rhythm GI/Abdominal exam: Present: soft. Absent: distended, tenderness, guarding Extremities exam: Present: normal inspection Neurological exam: Present: alert, oriented X3, CN II-XII intact, other (No ataxia). Absent: motor sensory deficit Psychiatric exam: Present: normal affect, normal mood Skin exam: Present: warm, dry, intact Course Vital Signs 10/11/24 10/11/24 10/11/24 09:10 09:31 11:45 Temperature 98 F 98 F Pulse Rate 62 65 64 Respiratory 18 18 16 Rate Blood Pressure 167/78 170/78 161/70 O2 Sat by Pulse 100 98 97 Oximetry Medical Decision Making - Medical Decision Making Was pt. sent in by a medical professional or institution (, PA, INSTRUCTOR ADJUNCT PHARMACY TECHNICIAN, urgent care, hospital, or prison...) When possible be specific @ -No Did you speak to anyone other than the patient for history (EMS, parent, family, police, friend...)? What history was obtained from this source @ -No Did you review nursing and triage notes (agree or disagree)? Why? @ -I reviewed and agree with nursing and triage notes Were old charts reviewed (outside hosp., previous admission, EMS record, old EKG, old radiological studies, urgent care reports/EKG's, prison records)? Report findings @ -No old charts were reviewed Differential Dizziness: Benign paroxysmal positional Vertigo, Meniere's disease, otitis media, acoustic neuroma, vertebrobasilar insufficiency, cerebellar stroke, encephalitis, hypovolemic, arrhythmia, coronary artery syndrome, anemia, this is not meant to be an all-inclusive list EKG interpreted by me (3pts min.). @EKG: Sinus rhythm rate of 65, AL interval 201, QRS duration 87, QTc [address] segment elevation. X-rays interpreted by me (1pt min.). @ -Chest x-ray is negative for acute cardiopulmonary finding. CT interpreted by me (1pt min.). @ -None done U/S interpreted by me (1pt. min.). @ -None done What testing was considered but not performed or refused? (CT, X-rays, U/S, labs)? Why? @ -None What meds were considered but not given or refused? Why? @ -None Did you discuss the management of the patient with other professionals (professionals i.e. DrJaimee, PA, INSTRUCTOR ADJUNCT PHARMACY TECHNICIAN, lab, RT, psych nurse, child welfare social worker, church history professor, teacher, cash management officer, case management associate)? Give summary @Case discussed with Dr. Singh who will evaluate the patient as an outpatient and agrees with increasing losartan to 50 mg. Was smoking cessation discussed for >3mins.? @ -No Was critical care preformed (if so, how long)? @ -No Were there social determinants of health that impacted care today? How? (Homelessness, low income, unemployed, alcoholism, drug addiction, transportation, low edu. Level, literacy, decrease access to med. care, senior living, rehab)? @ -No Was there de-escalation of care discussed even if they declined (Discuss DNR or withdrawal of care, Hospice)? DNR status @ -No What co-morbidities impacted this encounter? (DM, HTN, Smoking, COPD, CAD, Cancer, CVA, ARF, Chemo, Hep., AIDS, mental health diagnosis, sleep apnea, morbid obesity)? @ -Hypertension, history of vertigo Was patient admitted / discharged? Hospital course, mention meds given and route, prescriptions, significant lab abnormalities, going to OR and other pertinent info. @6-year-old female with dizziness, hypertension over the past 3 days. Patient is well-appearing without ataxia, no focal findings, no headache. Patient is in sinus rhythm. She has normal CBC, normal CMP, normal urinalysis. She is mildly hypertensive. She is feels better with meclizine and fluids. Patient is only on 25 mg of losartan currently and will increase this dose to 50 and she will follow closely with her primary care provider. Undiagnosed new problem with uncertain prognosis? @ -No Drug Therapy requiring intensive monitoring for toxicity (Heparin, Nitro, Insulin, Cardizem)? @ -No Were any procedures done? @ -No Diagnosis/symptom? @Hypertension, vertigo Acute, or Chronic, or Acute on Chronic? @ -Acute on chronic Uncomplicated (without systemic symptoms) or Complicated (systemic symptoms)? @ -Default Side effects of treatment? @ -No Exacerbation, Progression, or Severe Exacerbation? @ -No Poses a threat to life or bodily function? How? (Chest pain, USA, VT, pneumonia, PE, COPD, DKA, ARF, appy, cholecystitis, CVA, Diverticulitis, Homicidal, Suicidal, threat to staff... and all critical care pts) @ -[Low risk at this time - Lab Data Result diagrams: 10/11/24 10:14 10/11/24 10:14 Lab Results 10/11/24 10/11/24 10/11/24 Range/Units 10:14 10:14 10:14 WBC 6.15 (4.50-10.00) 10*3/uL RBC 4.60 (4.10-5.20) 10*6/uL Hgb 14.5 (12.0-15.0) g/dL Hct 42.6 (37.2-46.3) % MCV 92.6 (80.0-97.0) fL MCH 31.5 (27.0-32.0) pg MCHC 34.0 (32.0-37.0) g/dL Plt Count 271 (140-440) 10*3/uL MPV 9.0 L (9.5-12.2) fL Immature Gran % (Auto) 0.2 % Neutrophils % 60.8 % Lymphocytes % 28.9 % Monocytes % 8.6 % Eosinophils % 1.0 % Basophils % 0.5 % Immature Gran # 0.01 (0.00-0.04) 10*3/uL Neutrophils # 3.74 (1.80-7.70) 10*3/uL Lymphocytes # 1.78 (0.90-5.00) 10*3/uL Monocytes # 0.53 (0.20-1.00) 10*3/uL Eosinophils # 0.06 (0.04-0.35) 10*3/uL Basophils # 0.03 (0.00-0.10) 10*3/uL PT 9.6 L (10.0-12.5) sec INR 0.8 (<1.2) Sodium (137-145) mmol/L Potassium (3.5-5.1) mmol/L Chloride (98-107) mmol/L Carbon Dioxide (22-30) mmol/L Anion Gap mmol/L BUN (7-17) mg/dL Creatinine (0.52-1.04) mg/dL Est GFR (CKD-EPI)AfAm (>60 ml/min/1.73 sqM) Est GFR (CKD-EPI)NonAf (>60 ml/min/1.73 sqM) Glucose (74-99) mg/dL Calcium (8.4-10.2) mg/dL Total Bilirubin (0.2-1.3) mg/dL AST (14-36) U/L ALT (4-34) U/L Alkaline Phosphatase (38-126) U/L Troponin I (0.000-0.034) ng/mL Total Protein (6.3-8.2) g/dL Albumin (3.5-5.0) g/dL Urine Color Colorless Urine Appearance Clear (Clear) Urine pH 6.5 (5.0-8.0) Ur Specific [place] 1.003 (1.001-1.035) Urine Protein Negative (Negative) Urine Glucose (UA) Negative (Negative) Urine Ketones Negative (Negative) Urine Blood Trace H (Negative) Urine Nitrite Negative (Negative) Urine Bilirubin Negative (Negative) Urine Urobilinogen <2.0 (<2.0) mg/dL Ur Leukocyte Esterase Negative (Negative) Urine RBC 1 (0-5) /hpf Urine WBC 1 (0-5) /hpf 10/11/24 10/11/24 Range/Units 10:14 10:14 WBC (4.50-10.00) 10*3/uL RBC (4.10-5.20) 10*6/uL Hgb (12.0-15.0) g/dL Hct (37.2-46.3) % MCV (80.0-97.0) fL MCH (27.0-32.0) pg MCHC (32.0-37.0) g/dL Plt Count (140-440) 10*3/uL MPV (9.5-12.2) fL Immature Gran % (Auto) % Neutrophils % % Lymphocytes % % Monocytes % % Eosinophils % % Basophils % % Immature Gran # (0.00-0.04) 10*3/uL Neutrophils # (1.80-7.70) 10*3/uL Lymphocytes # (0.90-5.00) 10*3/uL Monocytes # (0.20-1.00) 10*3/uL Eosinophils # (0.04-0.35) 10*3/uL Basophils # (0.00-0.10) 10*3/uL PT (10.0-12.5) sec INR (<1.2) Sodium 140 (137-145) mmol/L Potassium 5.1 (3.5-5.1) mmol/L Chloride 102 (98-107) mmol/L Carbon Dioxide 23 (22-30) mmol/L Anion Gap 15 mmol/L BUN 29 H (7-17) mg/dL Creatinine 1.11 H (0.52-1.04) mg/dL Est GFR (CKD-EPI)AfAm 58 (>60 ml/min/1.73 sqM) Est GFR (CKD-EPI)NonAf 51 (>60 ml/min/1.73 sqM) Glucose 99 (74-99) mg/dL Calcium 10.2 (8.4-10.2) mg/dL Total Bilirubin 1.1 (0.2-1.3) mg/dL AST 71 H (14-36) U/L ALT 51 H (4-34) U/L Alkaline Phosphatase 111 (38-126) U/L Troponin I <0.012 (0.000-0.034) ng/mL Total Protein 8.2 (6.3-8.2) g/dL Albumin 4.9 (3.5-5.0) g/dL Urine Color Urine Appearance (Clear) Urine pH (5.0-8.0) Ur Specific [place] (1.001-1.035) Urine Protein (Negative) Urine Glucose (UA) (Negative) Urine Ketones (Negative) Urine Blood (Negative) Urine Nitrite (Negative) Urine Bilirubin (Negative) Urine Urobilinogen (<2.0) mg/dL Ur Leukocyte Esterase (Negative) Urine RBC (0-5) /hpf Urine WBC (0-5) /hpf Disposition Clinical Impression: Hypertension Disposition: HOME SELF-CARE Condition: Fair Instructions (If sedation given, give patient instructions): Dizziness (ED), Hypertension (ED) Prescriptions: Losartan [Cozaar] 50 mg PO DAILY 30 Days #30 tab Is patient prescribed a controlled substance at d/c from ED?: No Referrals: Vaibhav Singh DO [Primary Care Provider] - 1-2 days Time of Disposition: 12:16
[2024-10-11] MEDS: MECLIZINE 12.5 MG TAB PO STA (10:07)
[2024-10-11] MEDS: SODIUM CHLORIDE 0.9% 1,000 ML IV STA (10:09)
[2024-10-11 10:28] LABS: Basophils # (A) 0.03 10*3/uL (0.00-0.10); Basophils % (A) 0.5 %; Eosinophils # (A) 0.06 10*3/uL (0.04-0.35); Eosinophils % (A) 1.0 %; HCT 42.6 % (37.2-46.3); HGB 14.5 g/dL (12.0-15.0); Lymphocytes # (A) 1.78 10*3/uL (0.90-5.00); Lymphocytes % (A) 28.9 %; MCH 31.5 pg (27.0-32.0); MCHC 34.0 g/dL (32.0-37.0); MCV 92.6 fL (80.0-97.0); Monocytes # (A) 0.53 10*3/uL (0.20-1.00); Monocytes % (A) 8.6 %; Neutrophils # (A) 3.74 10*3/uL (1.80-7.70); Neutrophils % (A) 60.8 %; Platelet Count 271 10*3/uL (140-440); RBC 4.60 10*6/uL (4.10-5.20); RDW 12.3 % (11.5-14.5); WBC 6.15 10*3/uL (4.50-10.00)
[2024-10-11 10:29] LABS: Bilirubin,Urine Negative (Negative); Blood,Urine Trace (Negative); Color,Urine Colorless; Glucose,Urine (UA) Negative (Negative); Ketones,Urine Negative (Negative); Leukocyte Esterase,Urine Negative (Negative); Nitrite,Urine Negative (Negative); PH, Urine 6.5 (5.0-8.0); Protein,Urine Negative (Negative); RBC,Urine 1 /hpf (0-5); Specific Gravity,Urine 1.003 (1.001-1.035); Urobilinogen,Urine <2.0 mg/dL (<2.0); WBC,Urine 1 /hpf (0-5)
[2024-10-11 10:43] LABS: ALT 51 U/L (4-34); African American GFR (CKD) 58 (>60 ml/min/1.73 sqM); Anion Gap 15 mmol/L; Blood Urea Nitrogen 29 mg/dL (7-17); Calcium 10.2 mg/dL (8.4-10.2); Carbon Dioxide 23 mmol/L (22-30); Chloride 102 mmol/L (98-107); Glucose 99 mg/dL (74-99); Non-African American GFR(CKD) 51 (>60 ml/min/1.73 sqM); Sodium 140 mmol/L (137-145)
[2024-10-11 10:47] LABS: INR 0.8 (<1.2); Prothrombin Time 9.6 sec (10.0-12.5)
--- NOTE | 2024-10-11 10:53 | XR ---
EXAMINATION TYPE: XR chest 2V DATE OF EXAM: 10/11/2024 10:49 AM COMPARISON: Chest radiographs from 07/18/2022. CLINICAL INDICATION: Female, 69 years old with history of dizzy; TECHNIQUE: XR chest 2V Frontal and lateral views of the chest. FINDINGS: Lungs/Pleura: There is no evidence of pleural effusion, focal consolidation, or pneumothorax. Pulmonary vascularity: Unremarkable. Heart/mediastinum: Cardiomediastinal silhouette is unremarkable. Musculoskeletal: No acute osseous pathology. IMPRESSION: No acute cardiopulmonary disease/process. [facility], , 10/11/2024 10:51 AM
[2024-10-11 11:02] LABS: Total Protein 8.2 g/dL (6.3-8.2)
[2024-10-11 11:03] LABS: AST 71 U/L (14-36); Albumin 4.9 g/dL (3.5-5.0); Alkaline Phosphatase 111 U/L (38-126); Potassium 5.1 mmol/L (3.5-5.1)
[2024-10-11 12:46] VITALS: BP 154/66; PULSE 65; RESP 18
== END 2024-10-11 12:45 | disposition home or self-care (01) ==
LOC: EC 09:06
DX: I10 Essential (primary) hypertension (principal); Z87.891 Personal history of nicotine dependence; Z88.5 Allergy status to narcotic agent
CPT/HCPCS: 36415; 71046; 80053; 81001; 84484; 85025; 85610; 93005; 96360; 96361; 99284